=== PATIENT | male | born 1955 | race Caucasian/White ===

== ENCOUNTER 2023-11-17 17:29 | Emergency (ER) | payer OTHER, SELFPAY ==
--- NOTE | ~2023-11-17 | CT_ITS ---
EXAMINATION: CT HEAD WITHOUT CONTRAST CT FACIAL BONES WITHOUT CONTRAST CT CERVICAL SPINE WITHOUT CONTRAST CLINICAL INFORMATION: Fall. Head strike. Facial laceration. COMPARISON: None available. TECHNIQUE: Imaging was performed from the skull base to vertex without intravenous administration of contrast. In addition, helical noncontrast CT imaging was acquired through the cervical spine and facial bones and source images were reviewed along with axial reconstructions and sagittal and coronal MPRs. This CT examination was performed using dose optimization techniques as appropriate, variously including the following: *Automated exposure control. *Adjustment of mA and/or kV according to patient size (this includes techniques or standardized protocols for targeted exams where dose is matched to indication/reason for exam; i.e. extremities or head). *Use of iterative reconstruction technique. DLP: 1980 mGy-cm FINDINGS: Head: There is no evidence of acute intracranial hemorrhage or edematous territorial infarction. Koch-white matter differentiation is preserved. Scattered and partially confluent hypoattenuation in the periventricular and deep white matter are consistent with mild to moderate microangiopathy. Proportional prominence of the ventricles and sulcal spaces without evidence of obstructive hydrocephalus. No abnormal mass effect or midline shift. No extra-axial fluid collections. Calcific atherosclerotic disease of the intracranial internal carotid and vertebral arteries. No hyperdense vessel sign. Moderate laceration and soft tissue edema/hematoma along the lower aspect of the frontal bone extending along the nasal bridge. No associated acute osseous calvarial abnormalities. Bilateral lens extractions. Maxillofacial Bones: Mildly displaced bilateral nasal bone fractures. Mild leftward nasal septal deviation. Associated moderate edema/hematoma with soft tissue gas along the nasal bridge extending into the left premaxillary soft tissues. No demonstrated radiopaque foreign bodies. No evidence of additional maxillofacial bone fractures. The zygomatic arches remain intact. No evidence of mandibular or maxillary fracture. The mandibular condyles remain well-seated in their respective temporal articular grooves. Normal appearance of the intraconal and extraconal fat. No evidence of traumatic injury to the extraocular musculature or globes. Moderate mucosal edema throughout the nasal cavities and ethmoid air cells. Mild mucosal thickening throughout the remaining paranasal sinuses. No layering fluid collections. Cervical Spine: The atlantooccipital and atlantoaxial articulations remain well aligned. Straightening of the normal cervical lordosis. Otherwise, there is anatomic alignment of the vertebral bodies and posterior elements. Ankylosis of the left-sided C2-C3 facets. No evidence of acute fracture or subluxation. The vertebral body heights are maintained. Moderate degenerative disc disease at C3-C4. Mild degenerative disc disease at all additional levels. Facet and uncovertebral joint arthropathy leads to osseous encroachment on the neural foramina from C2-C5. There is no prevertebral soft tissue swelling. The thyroid gland and remaining cervical soft tissues are within normal limits. The lung apices demonstrate no abnormalities. CT/CT cervical spine wo IV con IMPRESSION: 1. No evidence of acute intracranial hemorrhage or edematous territorial infarction. Mild to moderate underlying microangiopathy and generalized cerebral volume loss. 2. No evidence of acute fracture or traumatic subluxation of the cervical spine. Moderate multilevel degenerative spondyloarthropathy of the cervical spine. 3. Mildly displaced bilateral nasal bone fractures. Moderate soft tissue edema/hematoma with soft tissue gas along the nasal bridge extending into the left premaxillary soft tissues. No demonstrated radiopaque foreign bodies.
[2023-11-17 17:40] VITALS: BP 117/69; PULSE 98; RESP 18; TEMP 37; O2SAT 95; BMI 32.4
--- NOTE | 2023-11-17 17:40 | ED_ITS ---
HPI - General Adult General Chief complaint: Head Injury Stated complaint: forehead laceration Time Seen by Provider: 11/17/23 18:06 Source: patient and family () Mode of arrival: ambulatory Limitations: no limitations History of Present Illness HPI narrative: Patient is a 68-year-old male presenting to the ED with complaint of forehead laceration and nasal pain/bleeding after a fall prior to arrival. He was sweeping up popcorn and lost his balance and fell forward into the handle of the oven. was home, denies loss of consciousness. He is not anticoagulated. Patient has 3-4cm linear laceration to forehead. He reports mild headache. Denies any changes is vision. States he feels as though he needs to blow his nose. Denies neck or back pain. complaint: head injury Onset (ago): hour(s) Location: face Severity: mild Quality: aching Pain Consistency: constant Relieving factors: rest Exacerbating factors: movement Associated symptoms: headaches Treatments prior to arrival: none Related Data Previous Rx's Medication Instructions Recorded amoxicillin 875 mg-potassium 1 tab PO BID #13 tabs 11/17/23 clavulanate 125 mg tablet Allergies Allergy/AdvReac Type Severity Reaction Status Date / Time No Known Allergies Allergy Verified 11/17/23 17:45 [No Known Allergies*] Review of Systems 2 Review of Systems: As per HPI. Yes all other systems are reviewed and are negative Constitutional: Constitutional: Reports as per HPI [facility] Social History Social History Advance Directives: No Advance Directives Information Provided: No Physical Exam ED Vital Signs: Vital Signs - 24 hr 11/17/23 17:40 Temperature 98.6 F Pulse Rate 98 Respiratory Rate 18 Blood Pressure 117/69 Pulse Oximetry 95 Oxygen Delivery Method Room Air BMI result Body Mass Index 32.4 Vital signs have been reviewed and appear to be correct. Blood pressure normal. Heart rate normal. Respiratory rate normal. Temperature normal. Oxygen saturation normal. Const General: cooperative, healthy appearing and no acute distress Orientation/consciousness: oriented to person, oriented to place, oriented to time and patient oriented x3 Limitations: no limitations HENMT Other: Head: Yes normocephalic Head images: 2 1. 5cm linear laceration Ears: external ears normal General nose exam: Normal septum present and Abnormal external nose present nasal deviation to the right and nasal swelling Face and sinus: Yes face symmetric Mouth: oropharynx normal and moist mucous membranes Throat: Yes uvula midline Eyes Periorbital: periorbital findings abnormal left periorbital ecchymosis (medially, see photo) Pupils: Equal, round and reactive pupils present EOM: EOMs intact bilaterally Neck Neck: Yes normal visual inspection, Yes no meningeal signs and Yes supple Resp Effort & Inspection: normal respiratory effort and able to speak in complete sentences Auscultation: clear to auscultation bilaterally Cardio Rate: regular rate Rhythm: regular rhythm Heart sounds: S1 normal heart sound present and S2 normal heart sound present GI Palpation (GI): Soft to palpation and nontender Auscultation: normoactive bowel sounds General: Yes no CVA tenderness Back/Spine/Pelvis Back: no CVA tenderness Skin General skin exam: elasticity normal and turgor normal Neuro General: oriented to person, oriented to place, oriented to time, patient oriented x3, gait normal, tone normal, moves all extremities, Normal light touch and pain sensation, no meningeal signs, no focal motor deficits, CN's II-XI intact bilaterally and deep tendon reflexes 2+ bilaterally Cranial nerves: Yes Equal, round and reactive pupils present Cognition (Neuro): normal cognition Gait exam (Neuro): Normal gait present Motor exam (neuro): 5/5 motor strength present throughout Sensory Exam: Normal double simultaneous stimulation for sensation Extrem General: Yes full ROM, Yes no pedal edema and Yes no calf tenderness Psych Mental Status: mental status grossly normal Affect: normal affect Thought process: Normal thought process present Course Course Course Narrative: This is a rapid medical exam: Additional HPI, ROS, PE not included below will be deferred to primary provider. Patient is a 68-year-old male presenting to the ED with complaint of forehead laceration and nasal pain/bleeding after a fall prior to arrival. He was sweeping up popcorn and lost his balance and fell forward into the handle of the oven. was home, denies loss of consciousness. He is not anticoagulated. Patient has 3-4cm linear laceration to forehead. Plan: CT head, neck, facial bones, Tdap Medications Administered Discontinued Medications Generic Name Dose Route Start Last Admin Trade Name Freq PRN Reason Stop Dose Admin Diphtheria/Tetanus/Acell Pertussis 0.5 ml 11/17/23 17:40 11/17/23 18:19 Diphth,Pertus(Acell),Tet Adult 0.5 Ml Syringe IM 11/17/23 17:41 0.5 ml .ONCE ONE Administration Lidocaine HCl 10 ml 11/17/23 18:31 11/17/23 19:44 Lidocaine Hcl 1 % Mpf 5 Ml Vial INFILTRATI 11/17/23 18:32 10 ml ONCE ONE Administration Procedures Laceration Laceration 1: Site: face Size (cm): 5 Description: linear Depth: involves muscle layer Local Anesthetic: lidocaine 1% Amount of anesthesia used (mL): 6 Pre-repair: wound explored, irrigated extensively and deep structures intact Skin layer closed with: other (prolene) Size (cm): 6-0 Number of sutures: 14 Technique: simple, interrupted Subcutaneous layer closed with: vicryl Size: 5-0 Number of sutures: 1 Medical Decision Making Medical Decision Making MDM Narrative: Patient is a 68-year-old male presenting to the ED with complaint of forehead laceration and nasal pain/bleeding after a fall prior to arrival. On exam patient is awake, A+Ox3, VS WNL, afebrile, normal neurological exam without focal deficits, physical exam findings as above. Given reported symptoms and physical exam findings, initial differential includes ICH, skull or cervical vertebral fracture or subluxation, facial bones fracture, open fracture, laceration. CT notable for no intracranial hemmorhage, skull or cervical vertebral fractures, mildly displaced bilateral nasal bone fractures with soft tissue edema along nasal bridge. My interpretation is in agreement with the radiologist's interpretation. Laceration repaired as per procedure note. Wound care instructions including daily assessment discussed with patient at bedside. Tdap updated at today's visit. Patient advised to return for suture removal in 5 days. Patient instructed to apply ice to his nose intermittently, Tylenol and ibuprofen for pain. Patient given explicit instructions not to blow his nose. Will refer patient to , ENT for further management of nasal bones fractures. Strict return precautions for all injuries discussed with patient and at bedside. Instructed patient to follow-up with his primary care provider as well. Patient and verbalized understanding of and agreement with plan. Differential Diagnosis Differential Diagnoses: The differential diagnosis associated with the presentation includes As per MDM. Admission/Observation Consideration of admission/observation: Escalation of care including admission/observation considered Patient would have been admitted to the hospital had their work up had any findings where hospital admission was appropriate and their clinical presentation warranted hospital admission. Independent Interpretation I performed an independent interpretation of an: CT Scan Interpretation: no intracranial hemmorhage, skull or cervical vertebral fractures, mildly displaced bilateral nasal bone fractures with soft tissue edema along nasal bridge Radiology Impression Discussion of test interpretation with radiology: I have reviewed the radiologist's reading. Radiologist Impression: CT/CT head/brain wo IV con IMPRESSION: 1. No evidence of acute intracranial hemorrhage or edematous territorial infarction. Mild to moderate underlying microangiopathy and generalized cerebral volume loss. 2. No evidence of acute fracture or traumatic subluxation of the cervical spine. Moderate multilevel degenerative spondyloarthropathy of the cervical spine. 3. Mildly displaced bilateral nasal bone fractures. Moderate soft tissue edema/hematoma with soft tissue gas along the nasal bridge extending into the left premaxillary soft tissues. No demonstrated radiopaque foreign bodies. Independent Historian Clinical information obtained from an independent historian. History obtained from or confirmed by: Spouse External Record Review External record reviewed: Inpatient record, Office record and Outpatient record Prescription Management I considered prescription management with: Antibiotic Discharge Plan Discharge Clinical Impression: Fracture of nasal bones, Forehead laceration Patient Disposition: Home, Self-Care Instructions: Care For Your Stitches (DC), Nasal Fracture (ED), Laceration (DC), Care For Your Absorbable Stitches (ED), Stitches Removal (ED) Additional Instructions: You were evaluated in the emergency department today for facial injuries after a fall. The CT scan of your facial bones shows bilateral nasal fractures. IT IS VERY IMPORTANT THAT YOU DO NOT BLOW YOUR NOSE. You are being referred to Dr. Hung, ENT for further management of your nasal fractures. Please call his office to schedule an appointment. You should apply ice to your nose for 10-15 minutes at a time several times daily. You are being treated with a course of antibiotics because your nasal fracture involves lacerations to prevent infection. Please complete the full course as prescribed. If you develop a nosebleed that you are not able to control, you should return to the emergency department. The CT scan of your brain and cervical spine did not show evidence bleeding in your brain or fractures. Your laceration was repaired in the emergency department with sutures. You will need to have the sutures removed in 5 days. Please keep the dressing in place for the next 24 hours. After that, you can change the dressing daily and be sure to assess the laceration each time. If you notice increased redness, swelling, thick yellow drainage please return to the emergency department. We recommend you take 600 mg ibuprofen every 6 hours or Tylenol 650 mg every 6 hours as needed for pain. If needed, you can alternate these medications so that you take 1 medication every 3 hours. For instance, at noon take ibuprofen, then at 3:00 p.m. take Tylenol, then at 6:00 p.m. take ibuprofen. Please schedule an appointment with for follow-up with your primary care provider as soon as possible. Return to the emergency department if you experience worsening or uncontrolled pain, vision changes, recurrent vomiting, difficulty with normal activities, abnormal behavior, difficulty walking, numbness, weakness, or any other concerning symptoms. Prescriptions: New amoxicillin-pot clavulanate 875-125 mg tablet 1 tab PO BID Qty: 13 0RF Rx Instructions: You were given the 1st dose of this medication in the emergency department. Please take the next dose in the morning, 11/18/2023. Referrals: Braden Hung [Physician] -
[2023-11-17] MEDS: Diphth,Pertus(ACell),Tet Adult 0.5 ML SYRINGE IM (18:19)
[2023-11-17] MEDS: Lidocaine HCl 1 % MPF 5 ML VIAL 10 ML INFILTRATI (19:44)
[2023-11-17] MEDS: Bacitracin Oint 0.9 GM PACKET 1 APPL TOPICAL (20:33)
[2023-11-17 20:40] VITALS: BP 119/72; PULSE 86; RESP 20; TEMP 36.6; O2SAT 97
[2023-11-17] MEDS: Amoxicillin/Potassium Clav 875 MG TABLET PO (20:54)
[2023-11-17] MEDS: Acetaminophen 325 MG TABLET 975 MG PO (20:56)
[2023-11-17 20:57] VITALS: BP 119/72; PULSE 84; RESP 18; TEMP 36.7
== END 2023-11-17 20:59 | disposition home or self-care (01) ==
PROVIDERS: Emergency Provider Internal Medicine; PCP Internal Medicine
DX: S01.81XA Laceration without foreign body of other part of head, initial encounter (principal); S02.2XXA Fracture of nasal bones, initial encounter for closed fracture; W19.XXXA Unspecified fall, initial encounter; Y93.89 Activity, other specified; Y92.89 Other specified places as the place of occurrence of the external cause; Y99.9 Unspecified external cause status; Z23 Encounter for immunization
CPT/HCPCS: 12002; 70450; 70486; 72125; 90471; 90715; 99283; 99284

== ENCOUNTER 2023-11-23 07:23 | Emergency (ER) | payer MEDICARE, SELFPAY ==
[2023-11-23 07:31] VITALS: BP 143/93; PULSE 94; RESP 16; TEMP 36.4; O2SAT 95; BMI 31.8
--- NOTE | 2023-11-23 07:35 | ED_ITS ---
HPI - General Adult General Chief complaint: General Medical Stated complaint: Suture Removal Time Seen by Provider: 11/23/23 07:35 Source: patient Mode of arrival: ambulatory Limitations: no limitations History of Present Illness HPI narrative: No presents to the ER for evaluation of his forehead laceration that required multiple sutures on 11/16 after he fell. He had nasal bone fractures as well and has ENT follow up today. He reports improving pain and bruising. No nasal congestion or bleeding. No discharge from lac and no complaints. MD complaint: laceration evaluation and suture removal Location: face Radiation: non-radiation Severity: mild Pain Consistency: now resolved Relieving factors: none Exacerbating factors: none Associated symptoms: denies other symptoms Treatments prior to arrival: none Related Data Previous Rx's Medication Instructions Recorded amoxicillin 875 mg-potassium 1 tab PO BID #13 tabs 11/17/23 clavulanate 125 mg tablet Allergies Allergy/AdvReac Type Severity Reaction Status Date / Time No Known Allergies Allergy Verified 11/23/23 07:30 [No Known Allergies*] Review of Systems Review of Systems: Yes all other systems are reviewed and are negative [facility] Social History Social History Advance Directives: Yes Advance Directives Information Provided: Yes Advance Directives on File: No Physical Exam ED Vital Signs: Vital Signs - 24 hr 11/23/23 07:31 Temperature 97.6 F Pulse Rate 94 Respiratory Rate 16 Blood Pressure 143/93 H Pulse Oximetry 95 Oxygen Delivery Method Room Air BMI result Body Mass Index 31.8 Appearance: Alert. Oriented X3. No acute distress. HEENT: linear 6cm well healing laceration at the bottom of the forehead just above the eyebrows with multiple sutures in place, some mild scabbing. no drainage, erythema or warmth. ecchymosis under bilateral eyes appears old. no nasal swelling or drainage. CVS: Normal heart rate and rhythm. Pulses normal. Respiratory: No respiratory distress. Skin: Skin warm and dry. Normal skin color. Normal skin turgor. No rashes. Extremities: normal inspection x4 Neuro: Oriented X 3. No motor deficit. No sensory deficit. steady gait Medical Decision Making Medical Decision Making MDM Narrative: 68 yo male presenting for suture removal, wound evaluation. appropriately healing sutures removed successfully and 3 steri strips applied for additional healing wound care discussed he has ENT appointment today stable for d/c home Differential Diagnosis Differential Diagnoses: The differential diagnosis associated with the presentation includes delayed wound healing, appropriate wound healing, wound complication, open fracture External Record Review External record reviewed: Outpatient record and Prior outpatient labs Prescription Management I considered prescription management with: Antibiotic Discharge Plan Discharge Clinical Impression: Forehead laceration Qualifiers: Encounter type: subsequent encounter Qualified Code(s): S01.81XD - Laceration without foreign body of other part of head, subsequent encounter Patient Disposition: Home, Self-Care Instructions: Stitches Removal (ED) Additional Instructions: keep the steri strips in place until they fall off on their own recommend over the counter Mederma to help with scarring follow up with ENT and your doctor If you develop new or worsening symptoms call 911 or come back to the ER for further evaluation. Prescriptions: No Action amoxicillin-pot clavulanate 875-125 mg tablet 1 tab PO BID Qty: 13 0RF Rx Instructions: You were given the 1st dose of this medication in the emergency department. Please take the next dose in the morning, 11/18/2023.
[2023-11-23 08:12] VITALS: BP 143/93; PULSE 94; RESP 16; TEMP 36.4; O2SAT 95
== END 2023-11-23 08:50 | disposition home or self-care (01) ==
PROVIDERS: Emergency Provider Emergency Medicine; PCP Internal Medicine
DX: S01.81XD Laceration without foreign body of other part of head, subsequent encounter (principal); X58.XXXD Exposure to other specified factors, subsequent encounter
CPT/HCPCS: 99282

== ENCOUNTER 2024-08-28 01:25 | Inpatient (IN) | payer MEDICARE, SELFPAY ==
[2024-08-28] VITALS (7 sets, daily range): BP systolic 115–136; BP diastolic 71–86; PULSE 73–101; RESP 12–19; TEMP 36.4–36.7; O2SAT 91–97; BMI 30.7; BMI 32.6; BMI 33.5
--- NOTE | 2024-08-28 | ECG_ITS ---
Test Reason : REPEAT Blood Pressure : / mmHG Vent. Rate : 095 BPM Atrial Rate : 095 BPM P-R Int : 154 ms QRS Dur : 134 ms QT Int : 388 ms P-R-T Axes : 044 042 -02 degrees QTc Int : 487 ms Normal sinus rhythm Right bundle branch block Abnormal ECG When compared with ECG of 28-AUG-2024 01:34, Premature ventricular complexes are no longer Present Referred By: Duncan Montana Electronically Signed By:Lang Ryder
--- NOTE | 2024-08-28 01:32 | ECG_ITS ---
Test Reason : CHEST PAIN Blood Pressure : / mmHG Vent. Rate : 099 BPM Atrial Rate : 099 BPM P-R Int : 150 ms QRS Dur : 136 ms QT Int : 368 ms P-R-T Axes : 031 035 -07 degrees QTc Int : 472 ms Sinus rhythm with occasional Premature ventricular complexes Right bundle branch block Abnormal ECG When compared with ECG of 24-MAR-2013 18:49, No significant change was found Referred By: Generic ED Physician Electronically Signed By:Lang Ryder
[2024-08-28 02:27] LABS: Basophils Absolute Auto 0.1 X10*3/uL (0.0-0.2); Eosinophils Absolute Auto 0.3 X10*3/uL (0.0-0.4); Eosinophils Percent Auto 3.8 % (0-4); Hematocrit 39.4 % (42.0-52.0); Hemoglobin 13.5 g/dl (14.0-18.0); Imm Gran Abs Auto 0.01 X10*3/uL (0.00-0.03); Imm Gran Pct Auto 0.1 % (0.0-0.4); Lymphocytes Absolute Auto 2.1 X10*3/uL (1.2-4.9); Lymphocytes Percent Auto 29.1 % (20-40); MANUAL DIFF FLAG NO; Mean Corpuscular HGB Conc 34.3 g/dl (31.0-36.0); Mean Corpuscular Hemoglobin 31.9 pg (27.0-33.0); Mean Corpuscular Volume 93.1 fL (80.0-98.0); Mean Platelet Volume 8.2 fL (9.4-12.4); Monocytes Absolute Auto 0.9 X10*3/uL (0.1-1.2); Monocytes Percent Auto 11.9 % (2-11); Neutrophils Percent Auto 54.1 % (45-73); Platelet Count 240 X10*3/uL (160-400); Red Blood Count 4.23 X10*6/uL (4.60-5.80); Red Cell Distribution Width 12.3 % (11.0-16.0); White Blood Count 7.3 X10*3/uL (4.8-10.8)
--- NOTE | 2024-08-28 02:43 | ED_ITS ---
HPI - Chest Pain General Chief Complaint: Chest Pain Stated Complaint: CHEST PAIN!!! Time Seen by Provider: 08/28/24 02:43 Source: patient Mode of arrival: ambulatory Limitations: no limitations History of Present Illness ED Provider: HPI narrative: Patient' with history of hypertension hypercholesterolemia no known coronary artery disease does not take any aspirin noticed sudden onset of pain while going to the bed pain was localized in lower sternum area heaviness constricting feeling with cold sweats nausea vomited once no shortness a breath was diaphoretic pain lasted until he arrived to the ER slight discomfort at this time patient has had remote stress test in the past which was negative Related Data Previous Rx's ?Medication ?Instructions ?Recorded amoxicillin 875 mg-potassium 1 tab PO BID #13 tabs 11/17/23 clavulanate 125 mg tablet Allergies Allergy/AdvReac Type Severity Reaction Status Date / Time No Known Allergies Allergy Verified 08/28/24 01:31 [No Known Allergies*] Review of Systems 2 Review of Systems: Yes all other systems are reviewed and are negative PMFSH Past Medical History Medical History (Updated 08/28/24 @ 06:34 by Duncan Montana MD) GERD (gastroesophageal reflux disease) Hyperlipidemia Hypertension Social History Social History Alcohol intake: current Alcohol intake frequency: a few times a week Patient Tobacco Use Status: Never used Tobacco Smoked in Last 30 Days: No Use of substances other than those prescribed or required for medical reasons: No Advance Directives: No Advance Directives Information Provided: Yes Do you have a plan to hurt others: No Plan Nutrition Risks: No Nutritional Risk Physical Exam 2 Vital Signs: Vital Signs: Last Vital Signs Temp 97.9 F 08/28/24 06:04 Pulse 89 08/28/24 06:04 Resp 19 08/28/24 06:04 BP 121/78 08/28/24 06:04 Pulse Ox 94 08/28/24 06:04 O2 Del Method Room Air 08/28/24 06:04 BMI result Body Mass Index 32.6 Appearance: Alert. Oriented X3. No acute distress. Eyes: No pallor or icterus ENT: Pharynx normal. Oral Mucosa moist Neck: Normal inspection. Neck supple. CVS: Normal heart rate and rhythm. Pulses normal. No murmur rub or gallop Respiratory: No respiratory distress. Equal air entry bilateral, no wheezing/rales/rhonchi Abdomen: Soft and nontender. Bowel sounds are present, no mass palpable, no CVA tenderness Skin: Skin warm and dry. Normal skin color. Normal skin turgor. Extremities: No lower extremity edema. No calf tenderness Neuro: Oriented X 3. No motor deficit. No sensory deficit.No cerebellar signs , cranial nerves II-XII intact Medications Administered Generic Name Dose Route Start Last Admin Trade Name Freq PRN Reason Stop Dose Admin Heparin Sodium/Sodium Chloride 25,000 unit in 250 mls @ 0 mls/hr 08/28/24 05:15 08/28/24 05:40 Heparin Sodium,Porcine/1/2ns IVCONT 10.02 units/kg/hr .Q0M SPEEDY 10 mls/hr Administration Protocol Per Protocol Discontinued Medications Generic Name Dose Route Start Last Admin Trade Name Freq PRN Reason Stop Dose Admin Aspirin 162 mg 08/28/24 02:48 08/28/24 02:58 Aspirin Enteric Coated 81 Mg Tablet.Dr ROCHE 08/28/24 02:49 162 mg ONCE ONE Administration Atorvastatin Calcium 80 mg 08/28/24 05:51 08/28/24 06:23 Atorvastatin Calcium 80 Mg Tablet PO 08/28/24 05:52 80 mg ONCE ONE Administration Heparin Sodium (Porcine) 5,000 unit 08/28/24 03:00 08/28/24 03:04 Heparin Sodium,Porcine 5,000 Unit/Ml Vial IVPUSH 08/28/24 03:01 5,000 unit ONCE ONE Administration Metoprolol Tartrate 25 mg 08/28/24 06:15 08/28/24 06:23 Metoprolol Tartrate 25 Mg Tablet PO 08/28/24 06:16 25 mg ONCE@0615 ONE Administration Nitroglycerin 0.5 inch 08/28/24 02:48 08/28/24 02:58 Nitroglycerin 2 % Oint 1 Gm Packet TRANSDERMA 08/28/24 02:49 0.5 inch ONCE ONE Administration Medical Decision Making Medical Decision Making [facility] Narrative: Patient with left-sided chest pain clinically cardiac with delta increase in troponin no acute EKG changes of acute ischemia patient is chest pain-free after arrival 2nd EKG also did not show any acute ischemic changes. Case discussed Dr. Cameron burciaga vehicle technician advised to heparinize the patient evaluate later and possible cardiac catheterization later today patient was given aspirin and nitro paste was applied on arrival Differential Diagnosis Differential Diagnoses: The differential diagnosis associated with the presentation includes Admission/Observation Consideration of admission/observation: Escalation of care including admission/observation considered Consult Healthcare Provider Management of the patient was discussed with: Hospitalist and Hospice Director Lab Data MDM Lab Attestation statement: I reviewed the patient's lab results. 08/28/24 02:17 08/28/24 02:17 Labs: Lab Results 08/28/24 08/28/24 08/28/24 Range/Units 02:17 02:22 02:57 WBC 7.3 (4.8-10.8) X10*3/uL RBC 4.23 L (4.60-5.80) X10*6/uL Hgb 13.5 L (14.0-18.0) g/dl Hct 39.4 L (42.0-52.0) % MCV 93.1 (80.0-98.0) fL MCH 31.9 (27.0-33.0) pg MCHC 34.3 (31.0-36.0) g/dl RDW 12.3 (11.0-16.0) % Plt Count 240 (160-400) X10*3/uL MPV 8.2 L (9.4-12.4) fL Immature Gran % (Auto) 0.1 (0.0-0.4) % Neut % (Auto) 54.1 (45-73) % Lymph % (Auto) 29.1 (20-40) % Rusk % (Auto) 11.9 H (2-11) % Eos % (Auto) 3.8 (0-4) % Baso % (Auto) 1.0 (0-2) % Lymph # (Auto) 2.1 (1.2-4.9) X10*3/uL Rusk # (Auto) 0.9 (0.1-1.2) X10*3/uL Eos # (Auto) 0.3 (0.0-0.4) X10*3/uL Baso # (Auto) 0.1 (0.0-0.2) X10*3/uL Abs Immat Gran (auto) 0.01 (0.00-0.03) X10*3/uL Absolute Neuts (auto) 4.0 (2.0-8.3) x10*3/uL Absolute Nucleated RBC 0.000 (0.0-0.012) X10*3/uL Nucleated RBC % (auto) 0.0 (0.0-0.2) /100WBC PT 10.7 L (10.9-12.4) SEC INR 0.9 (0.9-1.1) APTT 31.6 (26.0-36.8) SEC Sodium 139 (135-145) mmol/L Potassium 3.6 (3.3-5.1) mmol/L Chloride 104 (96-108) mmol/L Carbon Dioxide 27 (22-29) mmol/L Anion Gap 12 (12-20) BUN 20 H (9-16) mg/dL Creatinine 0.84 (0.5-1.4) mg/dL Estim Creat Clear Calc 97.0 Estimated GFR > 60 Random Glucose 116 H (60-115) mg/dL Calcium 9.2 (8.4-10.2) mg/dL Magnesium 1.9 (1.6-2.6) mg/dL Total Bilirubin 0.3 (0.0-1.0) mg/dL AST 25 (5-37) U/L ALT 19 (0-40) U/L Alkaline Phosphatase 71 (39-117) U/L Troponin I High Sens 6.3 (<3.5-35.0) ng/L Total Protein 6.7 (6.5-8.0) g/dL Albumin 4.0 (3.5-5.0) g/dL Influenza Type A (PCR) NEGATIVE (Negative) Influenza Type B (PCR) NEGATIVE (Negative) RSV RNA Qual (PCR) NEGATIVE (Negative) SARS-CoV-2 RNA (RT-PCR) NEGATIVE (Negative) 08/28/24 Range/Units 04:22 WBC (4.8-10.8) X10*3/uL RBC (4.60-5.80) X10*6/uL Hgb (14.0-18.0) g/dl Hct (42.0-52.0) % MCV (80.0-98.0) fL MCH (27.0-33.0) pg MCHC (31.0-36.0) g/dl RDW (11.0-16.0) % Plt Count (160-400) X10*3/uL MPV (9.4-12.4) fL Immature Gran % (Auto) (0.0-0.4) % Neut % (Auto) (45-73) % Lymph % (Auto) (20-40) % Rusk % (Auto) (2-11) % Eos % (Auto) (0-4) % Baso % (Auto) (0-2) % Lymph # (Auto) (1.2-4.9) X10*3/uL Rusk # (Auto) (0.1-1.2) X10*3/uL Eos # (Auto) (0.0-0.4) X10*3/uL Baso # (Auto) (0.0-0.2) X10*3/uL Abs Immat Gran (auto) (0.00-0.03) X10*3/uL Absolute Neuts (auto) (2.0-8.3) x10*3/uL Absolute Nucleated RBC (0.0-0.012) X10*3/uL Nucleated RBC % (auto) (0.0-0.2) /100WBC PT (10.9-12.4) SEC INR (0.9-1.1) APTT (26.0-36.8) SEC Sodium (135-145) mmol/L Potassium (3.3-5.1) mmol/L Chloride (96-108) mmol/L Carbon Dioxide (22-29) mmol/L Anion Gap (12-20) BUN (9-16) mg/dL Creatinine (0.5-1.4) mg/dL Estim Creat Clear Calc Estimated GFR Random Glucose (60-115) mg/dL Calcium (8.4-10.2) mg/dL Magnesium (1.6-2.6) mg/dL Total Bilirubin (0.0-1.0) mg/dL AST (5-37) U/L ALT (0-40) U/L Alkaline Phosphatase (39-117) U/L Troponin I High Sens 108.1 H* D (<3.5-35.0) ng/L Total Protein (6.5-8.0) g/dL Albumin (3.5-5.0) g/dL Influenza Type A (PCR) (Negative) Influenza Type B (PCR) (Negative) RSV RNA Qual (PCR) (Negative) SARS-CoV-2 RNA (RT-PCR) (Negative) Independent Interpretation I performed an independent interpretation of an: EKG Interpretation: Sinus tachycardia heart rate 111 beats per minute poor progression of R-waves in anterior leads? ST elevation lead V2 and V3 baseline disturbances will repeat the EKG Discharge Plan Discharge Clinical Impression: NSTEMI (non-ST elevated myocardial infarction) Patient Disposition: Admitted As Inpatient
[2024-08-28 02:44] LABS: Alanine Aminotransferase 19 U/L (0-40); Alkaline Phosphatase 71 U/L (39-117); Anion Gap 12 (12-20); Aspartate Amino Transferase 25 U/L (5-37); Bilirubin Total 0.3 mg/dL (0.0-1.0); Blood Urea Nitrogen 20 mg/dL (9-16); Calcium 9.2 mg/dL (8.4-10.2); Carbon Dioxide 27 mmol/L (22-29); Chloride 104 mmol/L (96-108); Estimated Glomerular Filt Rate > 60; Glucose Random 116 mg/dL (60-115); Magnesium 1.9 mg/dL (1.6-2.6); Potassium 3.6 mmol/L (3.3-5.1); Sodium 139 mmol/L (135-145); Total Protein 6.7 g/dL (6.5-8.0)
[2024-08-28 02:47] LABS: Troponin-I High Sensitivity 6.3 ng/L (<3.5-35.0)
[2024-08-28] MEDS: Aspirin Enteric Coated 81 MG TABLET.DR 162 MG PO (02:58)
[2024-08-28] MEDS: Nitroglycerin 2 % Oint 1 GM Packet 0.5 INCH TRANSDERMA (02:58)
[2024-08-28 03:03] LABS: Influenza A PCR NEGATIVE (Negative); Influenza B PCR NEGATIVE (Negative); Resp Syncy Virus RNA Qual PCR NEGATIVE (Negative); SARS COV2 PCR INHOUSE NEGATIVE (Negative)
--- NOTE | 2024-08-28 03:03 | MHC.EDTECH ---
EKG taken per order and signed by provider
[2024-08-28] MEDS: Heparin Sodium,Porcine 5,000 UNIT/ML VIAL 5000 UNIT IVPUSH (03:04)
[2024-08-28 03:10] LABS: INTERNATIONAL NORM RATIO 0.9 (0.9-1.1); Prothrombin Time 10.7 SEC (10.9-12.4)
[2024-08-28 03:13] LABS: Partial Thromboplastin Time 31.6 SEC (26.0-36.8)
--- NOTE | 2024-08-28 04:24 | MHC.EDTECH ---
Repeat trop drawn and sent to lab
[2024-08-28 04:48] LABS: Troponin-I High Sensitivity 108.1 ng/L (<3.5-35.0)
--- NOTE | 2024-08-28 04:55 | ECG_ITS ---
Test Reason : CHEST PX Blood Pressure : / mmHG Vent. Rate : 089 BPM Atrial Rate : 089 BPM P-R Int : 150 ms QRS Dur : 134 ms QT Int : 392 ms P-R-T Axes : 050 045 -10 degrees QTc Int : 476 ms Normal sinus rhythm Right bundle branch block Abnormal ECG When compared with ECG of 28-AUG-2024 02:50, No significant change was found Referred By: Duncan Montana Electronically Signed By:Lang Ryder
--- NOTE | 2024-08-28 05:03 | PC.NURSE ---
troponin elevated, 108.1. 3rd EKG done at this time. pt denies chest pain or SOB
--- NOTE | 2024-08-28 05:29 | PM.IMHP ---
History of Present Illness Date of Service: 08/28/24 Chief Complaint: chest pain This is a 69-year-old male with a history of hypertension (HTN), hyperlipidemia (HLD), and gastroesophageal reflux disease (GERD) who presented with non-radiating, constant chest pain rated 4/10 since 0, associated with nausea and vomiting. His symptoms were unresponsive to antacids (Tums), prompting his to bring him to the ED around 2 AM. Initial workup revealed an ECG with RBBB but no ischemic changes, and a first troponin level of 108, consistent with myocardial injury. ED management included aspirin (ASA) and nitroglycerin, with cardiology recommending IV heparin. He is currently chest-pain free and hemodynamically stable. Review of Systems Review of Systems: Gen: no fever Resp: no sob, no cough CV: no chest, no UMANZOR, no leg edema GI: No n/v, no abd pain Neuro: No confusion Yes all other systems are reviewed and are negative [facility] Medical History GERD (gastroesophageal reflux disease) Hyperlipidemia Hypertension Social History Household Members: Spouse Housing: House Do you presently have visiting nurse or other home services: No Alcohol intake: current Alcohol intake frequency: a few times a week Patient Tobacco Use Status: Former Tobacco user Smoked in Last 30 Days: No Use of substances other than those prescribed or required for medical reasons: No Advance Directives: No Advance Directives Information Provided: Yes Do you have a plan to hurt others: No Plan Recently lost weight without trying: No Nutrition Risks: No Nutritional Risk Poor oral hygiene: No Meds Allergies Allergy/AdvReac Type Severity Reaction Status Date / Time No Known Allergies Allergy Verified 08/28/24 01:31 [No Known Allergies*] Active Medications: Current Medications Heparin Sodium (Porcine) (Heparin Sodium,Porcine 5,000 Unit/Ml Vial) 4,000 unit 40 unit/kg (4000 unit) IVPUSH PROTOCOL BOLUS PRN; Protocol PRN Reason: 40 unit/kg - Heparin Protocol Heparin Sodium (Porcine) (Heparin Sodium,Porcine 5,000 Unit/Ml Vial) 8,000 unit 80 unit/kg (8000 unit) IVPUSH PROTOCOL BOLUS PRN; Protocol PRN Reason: 80 unit/kg - Heparin Protocol Heparin Sodium/Sodium Chloride (Heparin Sodium,Porcine/1/2ns) 25,000 unit in 250 mls @ 0 mls/hr IVCONT .Q0M SPEEDY; Protocol Home Medications ?Medication ?Instructions ?Recorded ?Confirmed ?Last Taken ?Type acetaminophen 500 mg tablet 1,000 mg PO Q8H PRN Pain 08/28/24 08/28/24 Unknown History cyanocobalamin (vitamin B-12) 1,000 mcg PO DAILY 08/28/24 08/28/24 08/27/24 History 1,000 mcg tablet esomeprazole magnesium 40 mg 40 mg PO DAILY 08/28/24 08/28/24 08/27/24 History capsule,delayed release hydrochlorothiazide 25 mg tablet 25 mg PO DAILY 08/28/24 08/28/24 08/27/24 History lisinopril 20 mg tablet 20 mg PO DAILY 08/28/24 08/28/24 08/27/24 History pravastatin 80 mg tablet 80 mg PO DAILY 08/28/24 08/28/24 08/27/24 History tadalafil 20 mg tablet 20 mg PO DAILY PRN Erectile 08/28/24 08/28/24 Unknown History Dysfunction Physical Exam Vital Signs and Narrative: Vital Signs: Last Vital Signs Temp 97.6 F 08/28/24 01:28 Pulse 87 08/28/24 04:17 Resp 13 08/28/24 04:17 BP 131/72 08/28/24 04:17 Pulse Ox 91 L 08/28/24 04:17 O2 Del Method Room Air 08/28/24 04:17 BMI result Body Mass Index 32.6 Const: Other: General: AO X 3, no acute distress Resp: CTA bilateral CVS: S1,S2,RRR GI: +BS, NT, no distention Skin: No rash Neuro: motor grossly intact Psych: appropriate affect Results Labs 08/28/24 02:17 08/28/24 07:05 Labs: Laboratory Results - last 24 hr 08/28/24 08/28/24 08/28/24 02:17 02:22 02:57 MCV 93.1 MCH 31.9 MCHC 34.3 RDW 12.3 Plt Count 240 MPV 8.2 L Immature Gran % (Auto) 0.1 Neut % (Auto) 54.1 Lymph % (Auto) 29.1 [place] % (Auto) 11.9 H Eos % (Auto) 3.8 Baso % (Auto) 1.0 Lymph # (Auto) 2.1 [place] # (Auto) 0.9 Eos # (Auto) 0.3 Baso # (Auto) 0.1 Abs Immat Gran (auto) 0.01 Absolute Neuts (auto) 4.0 Absolute Nucleated RBC 0.000 Nucleated RBC % (auto) 0.0 PT 10.7 L INR 0.9 APTT 31.6 Anion Gap 12 Estim Creat Clear Calc 97.0 Estimated GFR > 60 Random Glucose 116 H Calcium 9.2 Magnesium 1.9 Total Bilirubin 0.3 AST 25 ALT 19 Alkaline Phosphatase 71 Troponin I High Sens 6.3 Total Protein 6.7 Albumin 4.0 Influenza Type A (PCR) NEGATIVE Influenza Type B (PCR) NEGATIVE RSV RNA Qual (PCR) NEGATIVE SARS-CoV-2 RNA (RT-PCR) NEGATIVE 08/28/24 04:22 MCV MCH MCHC RDW Plt Count MPV Immature Gran % (Auto) Neut % (Auto) Lymph % (Auto) [place] % (Auto) Eos % (Auto) Baso % (Auto) Lymph # (Auto) [place] # (Auto) Eos # (Auto) Baso # (Auto) Abs Immat Gran (auto) Absolute Neuts (auto) Absolute Nucleated RBC Nucleated RBC % (auto) PT INR APTT Anion Gap Estim Creat Clear Calc Estimated GFR Random Glucose Calcium Magnesium Total Bilirubin AST ALT Alkaline Phosphatase Troponin I High Sens 108.1 H* D Total Protein Albumin Influenza Type A (PCR) Influenza Type B (PCR) RSV RNA Qual (PCR) SARS-CoV-2 RNA (RT-PCR) Assessment and Plan (1) NSTEMI (non-ST elevated myocardial infarction): Status: Acute Plan 69 year old male with HTN, HLD here with NSTEMI NSTEMI Initiate IV heparin drip per cardiology recommendation to reduce the risk of thrombus progression. Antiplatelet Therapy with ASA Continue nitroglycerin PRN for chest pain Start atorvastatin 80 mg stat metoprolol 25 mg bid Cardiology Consultation, he may need cardiac cath for possible revascularization. serial troponin and repeat ECG Ongoing tele monitoring Get echocardiogram HTN, resume home med per med rec HLD-Lipitor as above GERD-PPI DVT prophylaxis: heparin Full code admission for NSTEMI management including IV heparin Quality Stroke Does the patient have a stroke diagnosis?: No VTE Prior VTE?: No VTE Risk Level:: Medical - moderate - high VTE Device Contraindication: Treatment Not Indicated VTE Drug Contraindication: N/A - Med Ordered
--- NOTE | 2024-08-28 05:34 | PC.NURSE ---
pt weight updated on standing scale, 105.9kg. pharmacy called and updated for heparin drip
[2024-08-28] MEDS: Heparin Sodium,Porcine/1/2NS 25,000 UNIT/250 ML IV.SOLN 10 UNIT IVCONT (05:40)
--- NOTE | 2024-08-28 05:45 | PC.NURSE ---
heparin drip started
--- NOTE | 2024-08-28 05:51 | PC.NURSE ---
pump is set correctly to rate of 10 mls/hr and correct weight of 105.9kg
--- NOTE | 2024-08-28 06:09 | MHC.EDTECH ---
Rounds and vitals and belongings list completed,copy placed in chart
--- NOTE | 2024-08-28 06:21 | PC.NURSE ---
O2 dropped to 88% while resting with eyes closed and snoring. back up tp 95% when woken up. no official dx of sleep apnea
[2024-08-28] MEDS: Metoprolol Tartrate 25 MG TABLET PO (06:23)
[2024-08-28] MEDS: Atorvastatin Calcium 80 MG TABLET PO (06:23)
--- NOTE | 2024-08-28 07:00 | CA_ITS ---
Transthoracic Echocardiogram Patient (Last, First, Middle): Emory Vega K Gender: Male Date of : 1955 Age: 69 Procedure Date: 08/28/2024 Procedure Type: Transthoracic Echocardiogram Location: [facility] [place] Height: 180.34 cm Weight: 105.69 kg BSA: 2.25 m2 Heart Rate: 80 bpm BP: 121 / 78 mmHg Seed Trucker: SB Referring MD: Mane Antunez MD Symptoms: NSTEMI Study Quality: Adequate w contrast ECG Rhythm: Sinus Conclusions: - Normal left ventricular cavity size. The left ventricular systolic function is hyperdynamic. The visually estimated ejection fraction is >70%. There is no evidence of regional wall motion abnormalities. - Severe asymmetric septal hypertrophy (1.84 cm). - Mildly increased right ventricular cavity size. There is normal right ventricular systolic function. Findings Procedure Information Contrast agent, definity, is being given per protocol without apparent complications. The quality of the study was technically difficult. The study quality is limited by patients body habitus. Left Ventricle Normal left ventricular cavity size. The left ventricular systolic function is hyperdynamic. The visually estimated ejection fraction is >70%. There is no evidence of regional wall motion abnormalities. Abnormal diastolic function is noted. Spectral Doppler is indicative of a pseudonormal filling pattern. E/E prime ratio is between 8 and 15 consistent with indeterminate filling pressures. Severe asymmetric septal hypertrophy (1.84 cm). Right Ventricle Mildly increased right ventricular cavity size. There is normal right ventricular systolic function. Atria The left atrium is normal in size. The right atrium is likely dilated. Aortic Valve Normal aortic valve structure and function. There is no aortic valve stenosis. There is no aortic valve regurgitation. Mitral Valve The mitral valve appears normal. There is no mitral valve regurgitation. There is no mitral valve stenosis. Pulmonic Valve The pulmonic valve is normal. There is trace pulmonic valve regurgitation. Tricuspid Valve Normal tricuspid valve structure. There is trace tricuspid valve regurgitation. Normal right atrial pressure. There is no evidence of pulmonary hypertension. Great Vessels All visible segments of the aorta are normal in size. The visualized portions of the pulmonary artery and branches are normal. Venous The inferior vena cava is normal in size and collapses greater than 50% with inspiration. Pericardium/Pleural There is no evidence of pericardial effusion. Prior Study Comparison No prior study available for comparison. Measurements 2D Linear Measurements IVSd: 1.46 0.6-0.9/0.6-1.0 cm LVIDd: 4.17 3.9-5.3/4.2-5.9 cm LVIDd Index: 1.85 2.4-3.2/2.2-3.1 cm/m2 LVIDs: 2.38 2.0-3.6 cm LVPWd: 0.79 0.7-1.1 cm LA Diam: 3.50 2.7-3.8/3.0-4.0 cm LAIDs Index: 1.56 1.5-2.3 cm/m2 LV Mass: 200.30 67-162/88-224 g LV Mass Index: 89.02 43-95/49-115 g/m2 LVOT Diam: 2.40 3.0+(-)1.3 cm 2D Systolic Function EF 4C: 59.40 >55% EF 2C: 61.80 >55% EF BiP: 60.70 >55% Mitral Valve MV Pk E: 0.78 MV PK A: 0.72 MV Decel Time: 168.00 E/A: 1.10 E'Lateral: 6.31 E'Medial: 5.87 E/E' Med: 13.20 E/E' Lat: 12.30 PHT: 49.00 MVA PHT: 4.49 Decel [place]: 4.61 Aortic Valve AoV Pk Christopher: 1.14 AoV Pk Grad: 5.00 TOMER: 4.52 LVOT LVOT Pk Christopher: 1.13 LVOT Mn Christopher: 0.81 LVOT VTI: 0.22 LVOT Pk Grad: 5.00 LVOT Mn Grad: 3.00 LVOT Diam: 2.40 LVOT Area: 4.52 Diastolic Function MV Pk E: 0.78 MV Pk A: 0.72 E/A: 1.10 E'Medial: 5.87 E/E' Med: 13.20 E' Laterial: 6.31 E/E' Lat: 12.30 Right Ventricle TAPSE (mm): 24.80 TVS' Christopher: 14.50 Tricuspid Valve TR Pk Christopher: 2.46 TR Pk Grad: 24.00 RA Press: 3.00 RVSP: 27.00 Great Vessels Aorta Sinus of Valsalva: 3.50 2.0-3.5 cm Ao Asc: 3.40 2.1-3.4 cm Ao Arch: 3.30 Pulmonary Valve PV Pk Christopher: 1.02 Peak PV Grad: 4.00 Updated in Other Vendor System with Status of Final Lang Ryder MD electronically signed on 08/28/2024 10:54:37 AM with status of Final
[2024-08-28 07:33] LABS: Alanine Aminotransferase 20 U/L (0-40); Alkaline Phosphatase 72 U/L (39-117); Anion Gap 10 (12-20); Aspartate Amino Transferase 27 U/L (5-37); Bilirubin Total 0.6 mg/dL (0.0-1.0); Blood Urea Nitrogen 19 mg/dL (9-16); Calcium 8.9 mg/dL (8.4-10.2); Carbon Dioxide 27 mmol/L (22-29); Chloride 104 mmol/L (96-108); Creatinine Clr Calc Pharmacy 114.9; Estimated Glomerular Filt Rate > 60; Glucose Random 108 mg/dL (60-115); Potassium 3.7 mmol/L (3.3-5.1); Sodium 137 mmol/L (135-145); Total Protein 6.7 g/dL (6.5-8.0)
[2024-08-28 07:46] LABS: Troponin-I High Sensitivity 446.5 ng/L (<3.5-35.0)
--- NOTE | 2024-08-28 07:48 | ECG_ITS ---
Test Reason : REPEAT DUE TO INCREASED TROP Blood Pressure : / mmHG Vent. Rate : 076 BPM Atrial Rate : 076 BPM P-R Int : 146 ms QRS Dur : 136 ms QT Int : 420 ms P-R-T Axes : 008 041 -04 degrees QTc Int : 472 ms Normal sinus rhythm Right bundle branch block Abnormal ECG When compared with ECG of 28-AUG-2024 04:51, No significant change was found Referred By: Mane Antunez Electronically Signed By:Lang Ryder
--- NOTE | 2024-08-28 08:05 | PC.NURSE ---
Critical trop taken and MD Antunez notified, repeat EKG order placed per his request and sent pic of it via [employer].
--- NOTE | 2024-08-28 08:11 | MHC.EDTECH ---
EKG was taken,given to the RN Caridad and she send to the doctor.
--- NOTE | 2024-08-28 09:06 | PHA.MEDREC ---
Pharmacy Consult ? Medication Reconciliation Pharmacy has completed the medication reconciliation. Spoke with patient and he was able to confirm his medications. He confirmed he took everything yesterday.
--- NOTE | 2024-08-28 10:09 | PM.CNCAR ---
History of Present Illness History of Present Illness Date of Service: 08/28/24 Requesting physician: Mane Antunez Chief complaint: nstemi Narrative: 69-year-old gentleman with background history of hypertension and hyperlipidemia presenting with chest discomfort which he felt like an indigestion like feeling along with sweating episode last evening. With these symptoms he presented to [facility] and ruled in for NSTEMI. He has no further symptoms at this point and has been on a heparin drip. Blood pressure is well controlled. He is denying any significant cardiovascular history in the past. He did have stress testing many years ago which was normal. He has hammertoes and was supposed to get surgery in 10/23/2024. With no significant allergies. Labs reviewed. High sensitivity troponin level 446. COVID negative influenza negative. EKGs showing sinus rhythm with right bundle-branch block, no obvious ischemic changes. Right bundle-branch block is old. [facility] Past Medical History Medical History (Updated 08/28/24 @ 06:34 by Duncan Montana MD) GERD (gastroesophageal reflux disease) Hyperlipidemia Hypertension Social History Social History Alcohol intake: current Alcohol intake frequency: a few times a week Patient Tobacco Use Status: Never used Tobacco Smoked in Last 30 Days: No Use of substances other than those prescribed or required for medical reasons: No Advance Directives: No Advance Directives Information Provided: Yes Do you have a plan to hurt others: No Plan Nutrition Risks: No Nutritional Risk Meds Allergies Allergy/AdvReac Type Severity Reaction Status Date / Time No Known Allergies Allergy Verified 08/28/24 01:31 [No Known Allergies*] Active Medications: Current Medications Acetaminophen (Acetaminophen 325 Mg Tablet) 650 mg PO Q6H PRN PRN Reason: Pain, Mild 1-3,fever,headache Calcium Carbonate (Calcium Carbonate 750 Mg Tab.Chew) 750 mg PO Q4H PRN PRN Reason: Heartburn Cyanocobalamin (Cyanocobalamin (Vitamin B-12) 1,000 Mcg Tablet) 1,000 mcg PO DAILY SPEEDY Heparin Sodium (Porcine) (Heparin Sodium,Porcine 5,000 Unit/Ml Vial) 4,000 unit 40 unit/kg (4000 unit) IVPUSH PROTOCOL BOLUS PRN; Protocol PRN Reason: 40 unit/kg - Heparin Protocol Heparin Sodium (Porcine) (Heparin Sodium,Porcine 5,000 Unit/Ml Vial) 8,000 unit 80 unit/kg (8000 unit) IVPUSH PROTOCOL BOLUS PRN; Protocol PRN Reason: 80 unit/kg - Heparin Protocol Heparin Sodium/Sodium Chloride (Heparin Sodium,Porcine/1/2ns) 25,000 unit in 250 mls @ 0 mls/hr IVCONT .Q0M [facility]; Protocol Last Admin: 08/28/24 05:40 Dose: 10.02 units/kg/hr, 10 mls/hr Magnesium Hydroxide (Milk Of Magnesia 30 Ml Oral.Susp) 30 ml PO DAILY PRN PRN Reason: Constipation Melatonin (Melatonin 3 Mg Tablet) 6 mg PO BEDTIME PRN PRN Reason: Insomnia Metoprolol Tartrate (Metoprolol Tartrate 25 Mg Tablet) 25 mg PO BID [facility]; Protocol Morphine Sulfate (Morphine Sulfate 4 Mg/Ml Cartridge) 2 mg IVPUSH Q6H PRN; Protocol PRN Reason: Pain, Severe (Pain Scale 7-10) Omeprazole (Omeprazole 20 Mg Capsule.) 20 mg PO DAILY@0630 [facility] Polyethylene Glycol (Polyethylene Glycol 3350 17 Gm Powd.Pack) 17 gm PO DAILY PRN PRN Reason: Constipation Pravastatin Sodium (Pravastatin Sodium 80 Mg Tablet) 80 mg PO DAILY [facility] Home Medications ?Medication ?Instructions ?Recorded ?Confirmed ?Last Taken ?Type acetaminophen 500 mg tablet 1,000 mg PO Q8H PRN Pain 08/28/24 08/28/24 Unknown History cyanocobalamin (vitamin B-12) 1,000 mcg PO DAILY 08/28/24 08/28/24 08/27/24 History 1,000 mcg tablet esomeprazole magnesium 40 mg 40 mg PO DAILY 08/28/24 08/28/24 08/27/24 History capsule,delayed release hydrochlorothiazide 25 mg tablet 25 mg PO DAILY 08/28/24 08/28/24 08/27/24 History lisinopril 20 mg tablet 20 mg PO DAILY 08/28/24 08/28/24 08/27/24 History pravastatin 80 mg tablet 80 mg PO DAILY 08/28/24 08/28/24 08/27/24 History tadalafil 20 mg tablet 20 mg PO DAILY PRN Erectile 08/28/24 08/28/24 Unknown History Dysfunction Physical Exam Vital Signs: Vital Signs: Last Vital Signs Temp 97.9 F 08/28/24 09:26 Pulse 75 08/28/24 09:26 Resp 18 08/28/24 09:26 BP 127/71 08/28/24 09:26 Pulse Ox 94 08/28/24 06:04 O2 Del Method Room Air 08/28/24 06:04 BMI result Body Mass Index 32.6 GENERAL APPEARANCE: in no acute distress, pleasant. NECK: no carotid bruit, no jugular venous distention. SKIN: no suspicious lesions, warm and dry. HEART: no murmurs, regular rate and rhythm. LUNGS: clear to auscultation bilaterally. ABDOMEN: soft, nontender. EXTREMITIES: no edema. PERIPHERAL PULSES: equal. NEUROLOGIC: No gross deficits, AAO X 3 Objective Labs and Meds 08/28/24 02:17 08/28/24 07:05 Lab results: Laboratory Results - last 24 hr 08/28/24 08/28/24 08/28/24 02:17 02:22 02:57 WBC 7.3 RBC 4.23 L Hgb 13.5 L Hct 39.4 L MCV 93.1 MCH 31.9 MCHC 34.3 RDW 12.3 Plt Count 240 MPV 8.2 L Immature Gran % (Auto) 0.1 Neut % (Auto) 54.1 Lymph % (Auto) 29.1 [place] % (Auto) 11.9 H Eos % (Auto) 3.8 Baso % (Auto) 1.0 Lymph # (Auto) 2.1 [place] # (Auto) 0.9 Eos # (Auto) 0.3 Baso # (Auto) 0.1 Abs Immat Gran (auto) 0.01 Absolute Neuts (auto) 4.0 Absolute Nucleated RBC 0.000 Nucleated RBC % (auto) 0.0 PT 10.7 L INR 0.9 APTT 31.6 Sodium 139 Potassium 3.6 Chloride 104 Carbon Dioxide 27 Anion Gap 12 BUN 20 H Creatinine 0.84 Estim Creat Clear Calc 97.0 Estimated GFR > 60 Random Glucose 116 H Calcium 9.2 Magnesium 1.9 Total Bilirubin 0.3 AST 25 ALT 19 Alkaline Phosphatase 71 Troponin I High Sens 6.3 Total Protein 6.7 Albumin 4.0 Influenza Type A (PCR) NEGATIVE Influenza Type B (PCR) NEGATIVE RSV RNA Qual (PCR) NEGATIVE SARS-CoV-2 RNA (RT-PCR) NEGATIVE 08/28/24 08/28/24 04:22 07:05 WBC RBC Hgb Hct MCV MCH MCHC RDW Plt Count MPV Immature Gran % (Auto) Neut % (Auto) Lymph % (Auto) [place] % (Auto) Eos % (Auto) Baso % (Auto) Lymph # (Auto) [place] # (Auto) Eos # (Auto) Baso # (Auto) Abs Immat Gran (auto) Absolute Neuts (auto) Absolute Nucleated RBC Nucleated RBC % (auto) PT INR APTT Sodium 137 Potassium 3.7 Chloride 104 Carbon Dioxide 27 Anion Gap 10 L BUN 19 H Creatinine 0.73 Estim Creat Clear Calc 114.9 Estimated GFR > 60 Random Glucose 108 Calcium 8.9 Magnesium Total Bilirubin 0.6 AST 27 ALT 20 Alkaline Phosphatase 72 Troponin I High Sens 108.1 H* D 446.5 H* D Total Protein 6.7 Albumin 4.0 Influenza Type A (PCR) Influenza Type B (PCR) RSV RNA Qual (PCR) SARS-CoV-2 RNA (RT-PCR) Assessment and Plan (1) NSTEMI (non-ST elevated myocardial infarction): Status: Acute Plan Pleasant 69 year gentleman presenting with chest discomfort and NSTEMI. EKGs right bundle-branch block which is old and no dynamic changes noted. Clinical story is quite concerning and he has been started on heparin drip for treatment of NSTEMI. He has been symptom free so far. Blood pressure is well controlled. Change pravastatin to atorvastatin 80 mg daily. Continue baby aspirin 81 mg daily. Agree with metoprolol 25 mg twice a day. Gentle hydration and keep him NPO. Plan is cardiac catheterization later today. We will transferred to [facility]. I have discussed with him in detail about cardiac catheterization. He is agreeable for cardiac catheterization. Further recommendations will be made after cardiac catheterization. We will try to do echocardiogram before he is transferred. Thank you for allowing me to participate in the care of your patient. Please feel free to contact me if you have any questions. Procedures Date of Service Date of Service: 08/28/24
--- NOTE | 2024-08-28 10:22 | MHC.CM.PN ---
Pt to be transferred to [facility] for cardiac cathedarization today via BLS.
--- NOTE | 2024-08-28 10:40 | P.DS_ITS ---
DS: Providers Provider Date of Service: 08/28/24 Date of admission: 08/28/24 05:53 Primary care physician: Unknown Physician Consults: 08/28/24 05:50 Consult to Cardiology Routine Consulting Provider: [facility] Reason for consultation: NSTEMI Has provider been notified: Yes DS: Diagnosis Discharge Diagnosis (1) NSTEMI (non-ST elevated myocardial infarction): Status: Acute DS: Summary Hospital Course Hospital Course: admission hpi This is a 69-year-old male with a history of hypertension (HTN), hyperlipidemia (HLD), and gastroesophageal reflux disease (GERD) who presented with non- radiating, constant chest pain rated 4/10 since 2199, associated with nausea and vomiting. His symptoms were unresponsive to antacids (Tums), prompting his to bring him to the ED around 2 AM. Initial workup revealed an ECG with RBBB but no ischemic changes, and a first troponin level of 108, consistent with myocardial injury. ED management included aspirin (ASA) and nitroglycerin, with cardiology recommending IV heparin. He is currently chest-pain free and hemodynamically stable. Hsopital course: The patient was admitted several hours ago with chest pain and was diagnosed with NSTEMI. Serial troponins have risen significantly, starting at 6, then 108, and most recently 446. ECG findings reveal a right bundle branch block (RBBB) without ischemic changes. The patient is currently experiencing chest pain. Management has included aspirin (ASA), high-intensity statin therapy with atorvastatin 80 mg, metoprolol, as-needed nitroglycerin, and an intravenous heparin drip. Cardiology has recommended transferring the patient to [facility] for further evaluation, including cardiac catheterization and potential revascularization. Time Attestation Discharge Coordination Time (in mins): 35 Quality: Safe Use of Opioids Does Pt have an Active Cancer Diagnosis on the Problem List?: No Quality: Stroke Does the patient have a stroke diagnosis?: No Physical Exam Vital Signs: Vital Signs: Last Vital Signs Temp 97.9 F 08/28/24 09:26 Pulse 75 08/28/24 09:26 Resp 18 08/28/24 09:26 BP 127/71 08/28/24 09:26 Pulse Ox 94 08/28/24 06:04 O2 Del Method Room Air 08/28/24 06:04 BMI result Body Mass Index 33.5 Const: Other: General: AO X 3, no acute distress Resp: CTA bilateral CVS: S1,S2,RRR GI: +BS, NT, no distention Skin: No rash Neuro: motor grossly intact Psych: appropriate affect DS: Data Data Completed and Pending Labs on day of discharge: Laboratory Results - last 24 hr 08/28/24 08/28/24 08/28/24 02:17 02:22 02:57 WBC 7.3 RBC 4.23 L Hgb 13.5 L Hct 39.4 L MCV 93.1 MCH 31.9 MCHC 34.3 RDW 12.3 Plt Count 240 MPV 8.2 L Immature Gran % (Auto) 0.1 Neut % (Auto) 54.1 Lymph % (Auto) 29.1 Vance % (Auto) 11.9 H Eos % (Auto) 3.8 Baso % (Auto) 1.0 Lymph # (Auto) 2.1 Vance # (Auto) 0.9 Eos # (Auto) 0.3 Baso # (Auto) 0.1 Abs Immat Gran (auto) 0.01 Absolute Neuts (auto) 4.0 Absolute Nucleated RBC 0.000 Nucleated RBC % (auto) 0.0 PT 10.7 L INR 0.9 APTT 31.6 Sodium 139 Potassium 3.6 Chloride 104 Carbon Dioxide 27 Anion Gap 12 BUN 20 H Creatinine 0.84 Estim Creat Clear Calc 97.0 Estimated GFR > 60 Random Glucose 116 H Calcium 9.2 Magnesium 1.9 Total Bilirubin 0.3 AST 25 ALT 19 Alkaline Phosphatase 71 Troponin I High Sens 6.3 Total Protein 6.7 Albumin 4.0 Influenza Type A (PCR) NEGATIVE Influenza Type B (PCR) NEGATIVE RSV RNA Qual (PCR) NEGATIVE SARS-CoV-2 RNA (RT-PCR) NEGATIVE 08/28/24 08/28/24 04:22 07:05 WBC RBC Hgb Hct MCV MCH MCHC RDW Plt Count MPV Immature Gran % (Auto) Neut % (Auto) Lymph % (Auto) Vance % (Auto) Eos % (Auto) Baso % (Auto) Lymph # (Auto) Vance # (Auto) Eos # (Auto) Baso # (Auto) Abs Immat Gran (auto) Absolute Neuts (auto) Absolute Nucleated RBC Nucleated RBC % (auto) PT INR APTT Sodium 137 Potassium 3.7 Chloride 104 Carbon Dioxide 27 Anion Gap 10 L BUN 19 H Creatinine 0.73 Estim Creat Clear Calc 114.9 Estimated GFR > 60 Random Glucose 108 Calcium 8.9 Magnesium Total Bilirubin 0.6 AST 27 ALT 20 Alkaline Phosphatase 72 Troponin I High Sens 108.1 H* D 446.5 H* D Total Protein 6.7 Albumin 4.0 Influenza Type A (PCR) Influenza Type B (PCR) RSV RNA Qual (PCR) SARS-CoV-2 RNA (RT-PCR) Discharge Plan Discharge Anticipated Discharge Date/Time: 08/28/24 09:56 Patient Disposition: Xfer Acute [facility] Discharge Diagnosis: NSTEMI Referrals: Physician,Unknown J [Primary Care Provider] - 1 Week Discharge Medications: New metoprolol tartrate 25 mg Tablet 25 mg PO BID Qty: 60 0RF Protocol: Hold for SBP/HR < HOLD for SBP < : 90 HOLD for HR < : 60 heparin(porcine) in 0.45% NaCl 25,000 unit/250 mL Parenteral Solution 25,000 unit continuous IV infusion .Q0M Qty: 6000 0RF Rx Instructions: for heparin and PTT protocol aspirin 81 mg capsule 81 mg PO DAILY Qty: 90 0RF Continued cyanocobalamin (vitamin B-12) 1,000 mcg tablet 1,000 mcg PO DAILY pravastatin 80 mg tablet 80 mg PO DAILY esomeprazole magnesium 40 mg capsule,delayed release(DR/EC) 40 mg PO DAILY acetaminophen 500 mg tablet 1,000 mg PO Q8H PRN (Reason: Pain) Held lisinopril 20 mg tablet 20 mg PO DAILY Hold Instructions: Resume on 09/01/24. hydrochlorothiazide 25 mg tablet 25 mg PO DAILY Hold Instructions: Resume on 09/04/24. tadalafil 20 mg tablet 20 mg PO DAILY PRN (Reason: Erectile Dysfunction) Hold Instructions: Resume on 09/04/24. Discharge Orders: Discharge Order (Routine); Ordered 08/28/24 Ordered By: Mane Antunez Diet: Advance to usual diet Activity on Discharge: As tolerated Stand Alone Forms: Patient Portal Discharge page Print Language: Slovenian Care Plan Goals: recovery from nstemi Health Concerns: nstemi Plan of Treatment: transfer to [facility] for cardiac cath, continue heparin, ASA, metoprolol and high intensity statin Assessment: see above
[2024-08-28 11:11] LABS: D Dimer High Sensitivity < 150 NG/ML
[2024-08-28 12:05] LABS: PTT Heparin Drip 44.4 SEC (53-77.9)
--- NOTE | 2024-08-28 12:31 | PC.NURSE ---
patient dc before this nurse could increase heparin drip rate by 2 units/kg/hr. receiving nurse at [facility] notified of hep. aptt result
== END 2024-08-28 12:15 | disposition short-term general hospital (02) | DRG 282 ==
LOC: HO.ED 02:43 → HO.EDOVER 06:06 → HO.IMC 08:06
PROVIDERS: Internal Medicine Cardiovascular Disease; Admitting Provider Internal Medicine; Emergency Provider Internal Medicine; Visit Provider Internal Medicine
DX: I21.4 Non-ST elevation (NSTEMI) myocardial infarction (principal); K21.9 Gastro-esophageal reflux disease without esophagitis; I10 Essential (primary) hypertension; E78.5 Hyperlipidemia, unspecified; Z20.822 Contact with and (suspected) exposure to COVID-19; Z79.899 Other long term (current) drug therapy
CPT/HCPCS: 0241U; 36415; 80053; 83735; 84484; 85025; 85379; 85610; 85730; 93005; 93306; 99285; J1644; Q9957

== ENCOUNTER → 2024-08-28 05:53 | Outpatient (BNV) | payer MEDICARE, SELFPAY | PROVIDERS: Admitting Provider Internal Medicine; Emergency Provider Internal Medicine; Visit Provider Internal Medicine Cardiovascular Disease | DX: I21.4 Non-ST elevation (NSTEMI) myocardial infarction (principal); I42.2 Other hypertrophic cardiomyopathy; I49.3 Ventricular premature depolarization; R94.31 Abnormal electrocardiogram [ECG] [EKG] | CPT/HCPCS: 93010; 93306; 99223 ==

== ENCOUNTER → 2024-08-28 05:53 | Outpatient (BNV) | payer MEDICARE, SELFPAY | PROVIDERS: Admitting Provider Internal Medicine; Emergency Provider Internal Medicine; Visit Provider Internal Medicine | DX: I21.4 Non-ST elevation (NSTEMI) myocardial infarction (principal) | CPT/HCPCS: 99223; 99499 ==

== ENCOUNTER 2024-11-03 14:36 | Outpatient (AMB) | payer MEDICARE, SELFPAY ==
--- NOTE | 2024-11-03 14:39 | MHC.OFFVIS ---
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 He was seen in the hospital when he presented with chest pain and NSTEMI. He had indigestion like chest discomfort and vomiting and ruled in for NSTEMI. He was taken urgently for cardiac catheterization which showed left main stenosis involving the bifurcation. He underwent CABG x4 and since then has been doing well. He is denying any chest discomfort. No shortness of breath. He is doing cardiac rehabilitation and is progressing there. He currently does not know his medications correctly. By discharge summary from [facility] he is supposed to be on Plavix and atorvastatin. he is status saying that he is taking pravastatin. I have advised him to call us and update the medication list as he goes home. [facility] Medical History (Updated 11/03/24 @ 19:05 by Lang Ryder MD) GERD (gastroesophageal reflux disease) Hyperlipidemia Hypertension Surgical History (Updated 11/03/24 @ 19:05 by Lang Ryder MD) Hx of cardiac cath Social History Household Members: Spouse Housing: House Do you presently have visiting nurse or other home services: No Alcohol intake: current Alcohol intake frequency: a few times a week Patient Tobacco Use Status: Former Tobacco user Review of Systems Const Denies chills, Denies fatigue, Denies fever(s), Denies frequent falls, Denies weakness, Denies weight gain and Denies weight loss ENT Denies dizziness Card Denies chest pain, Denies leg edema, Denies lightheadedness, Denies palpitations, Denies dyspnea and Denies dyspnea on exertion Resp Denies cough, Denies dyspnea and Denies dyspnea on exertion GI Denies hematochezia Musc Denies abnormal gait, Denies muscle weakness, Denies numbness, Denies radiating pain into limb and Denies tingling Neuro Denies abnormal gait, Denies dizziness, Denies frequent falls, Denies numbness, Denies tingling and Denies weakness Endo Denies fatigue and Denies palpitations Physical Exam Vital Signs: Last Vital Signs Pulse 83 11/03/24 14:41 BP 124/60 11/03/24 14:41 BMI result Body Mass Index 31.3 GENERAL APPEARANCE: in no acute distress, pleasant. NECK: no carotid bruit, no jugular venous distention. SKIN: Well-healed midline sternotomy scar. HEART: no murmurs, regular rate and rhythm. LUNGS: clear to auscultation bilaterally. ABDOMEN: soft, nontender. EXTREMITIES: no edema. PERIPHERAL PULSES: equal. NEUROLOGIC: No gross deficits, AAO X 3 Office Procedures EKG Details: Sinus rhythm 83 beats per minute, right bundle-branch block, left posterior fascicular block. QTC 479 milliseconds. [id number], Complete Assessment & Plan Assessment & Plan (1) Stable angina: Code(s): I20.89 - Other forms of angina pectoris Category: Medical (2) S/P CABG x 4: Code(s): Z95.1 - Presence of aortocoronary bypass graft Category: Medical Plan [age] gentleman who is here for follow-up. He was seen in the hospital when he presented with NSTEMI. He underwent urgent cardiac catheterization which showed severe left main stenosis and underwent coronary artery bypass surgery urgently while inpatient. He has done quite well since the surgery and has recovered very well. Denying any anginal symptoms currently. Blood pressure is well controlled. He is taking aspirin but he is supposed to be on Plavix too. He is saying that he is taking super aspirin if there is some confusion about his medications. He will confirm his medications as he will go home. He is doing cardiac rehabilitation. He wants to start using a gym. I have advised him to complete cardiac rehab and then go to a gym. He is almost there over the next month though. Thank you for allowing me to participate in the care of your patient. Please feel free to contact me if you have any questions. Coding Level of Care Code Est Pt Level 4 (64641) Diagnoses Stable angina I20.89 S/P CABG x 4 Z95.1 CPT Codes EKG - CPT: 36588-[id number], Complete ([id number])
[2024-11-03 14:41] VITALS: BP 124/60; PULSE 83; BMI 31.3
--- OUTSIDE RECORDS SUMMARY | 2024-11-03 17:24 | XMS_ITS | Continuity of Care Document ---
Author Organization [facility] Address [address] [place] [address]- Care Team Providers Care Molding Manager Name Role Phone Heladio Serra MD Primary Care Physician Encounter [facility] Date(s): 09/09/24 - 10/09/24 [facility] [address] [place] [address] Drive [address] [place], [place] [address] Encounter Type: Triage Allergies, Adverse Reactions, Alerts No Known Allergies Immunizations Given and Recorded Vaccine Date Status Refusal Reason influenza virus vaccine, inactivated 05/26/24 Bradford rded influenza virus vaccine, inactivated 05/18/23 Bradford rded influenza virus vaccine, inactivated 07/04/22 Bradford rded influenza virus vaccine, inactivated 08/24/21 Bradford rded influenza virus vaccine, inactivated 06/18/20 Give n influenza virus vaccine, inactivated 05/25/18 Give n influenza virus vaccine, inactivated 06/15/17 Bradford rded influenza virus vaccine, inactivated 06/14/16 Bradford rded influenza virus vaccine, inactivated 05/28/15 Bradford rded influenza virus vaccine, inactivated 06/18/14 Give n influenza virus vaccine, inactivated 07/01/13 Give n influenza virus vaccine, inactivated 1 06/01/11 Gi freeman influenza virus vaccine, inactivated 2 07/08/10 Gi freeman tetanus-diphtheria toxoids (Td) 03/28/24 Given tetanus/diphtheria/pertussis, acel(Tdap) 11/17/23 Recorded tetanus/diphtheria/pertussis, acel(Tdap) 11/25/13 Given tetanus/diphtheria/pertussis, acel(Tdap) 10/15/12 Given Influenza Virus Vaccine (oldterm) 06/21/22 Recorde d Influenza Virus Vaccine (oldterm) 05/14/19 Recorde d [id number] 12y+ bivalent booster vax 06/21/22 Recorded [id number] 12y+ bivalent booster vax 06/16/22 Recorded SARS-CoV-2 (COVID-19) mRNA-1273 vaccine 09/08/21 R ecorded SARS-CoV-2 (COVID-19) mRNA-1273 vaccine 01/02/21 R ecorded SARS-CoV-2 (COVID-19) mRNA-1273 vaccine 12/03/20 R ecorded pneumococcal 23-valent vaccine 10/06/19 Given pneumococcal 13-valent vaccine 06/21/18 Given pneumococcal 13-valent vaccine 06/21/18 Given zoster vaccine, inactivated 04/24/18 Given zoster vaccine, inactivated 02/22/18 Given Fluarix (oldterm) 06/01/12 Given 1Admin Note: work 2Admin Note: per pt Medications acetaminophen 325 mg oral tablet 975 mg, By Mouth, Every 6 hours, Refills 0, Maintenance, 09/03/24 2:23:00 PM EST, Partial fill upon patient request if the prescription is for a schedule II opioid drug. Start Date: 09/03/24 Status: Ordered Repeat number: 1 aspirin 81 mg oral delayed release tablet 81 mg, By Mouth, Daily, # 30 tablet, Refills 0, Tot. Refills 0, Maintenance, 09/03/24 2:23:00 PM EST,Route to Pharmacy Electronically, [facility]/pharmacy #[id number], Partial fill upon patient request if the prescription is for a schedule II opioid drug., 181, cm, 09/03/24 4:29:00 EST, Height, 101, kg, 08/28/2416:05:00 EST, Dry Weight Start Date: 09/03/24 Status: Ordered Quantity: 30.0 Unit: tablet Repeat number: 1 atorvastatin 80 mg oral tablet = 80 mg, By Mouth, Daily at bedtime, # 30 tablet, 0 Refills, Maintenance, 09/03/24 2:23:00 PM EST, Tablet, [facility]/pharmacy #[id number], Partial fill upon patient request if the prescription is for a schedule IIopioid drug., 181, cm, 09/03/24 4:29:00 EST, Height, 101, kg, 08/28/24 16:05:00 EST, Dry Weight Start Date: 09/03/24 Status: Ordered Quantity: 30.0 Unit: tablet Repeat number: 1 Docusate Sodium Capsule 200 mg, 2, capsule, By Mouth, Daily, Refills 0, Maintenance, 09/03/24 2:23:00 PM EST, Partial fill upon patient request if the prescription is for a schedule II opioid drug. Start Date: 09/03/24 Status: Ordered Repeat number: 1 esomeprazole 40 mg oral enteric coated capsule 1 capsule, By Mouth, Daily, # 90 capsule, 1 Refills, Maintenance, 09/04/24 7:11:00 AM EST, [facility] STORE [id number], 181, cm, 09/03/24 4:29:00 EST, Height, 101, kg, 08/28/24 16:05:00 EST, Dry Weight Start Date: 09/04/24 Status: Ordered Quantity: 90.0 Unit: capsule Repeat number: 1 metoprolol 25 mg oral tablet 12.5 mg, 0.5, tablet, By Mouth, 2 times a day, # 60 tablet, Refills 1, Tot. Refills 1, Maintenance,09/26/24 9:36:00 AM EST, Route to Pharmacy Electronically, [facility]/pharmacy #[id number], Partial fill upon patient request if the prescription is for a schedule II opioid drug., 181, cm, 09/26/24 9:05:00 EST, Height, 101, kg, 08/28/24 16:05:00 EST, Dry Weight Start Date: 09/26/24 Status: Ordered Quantity: 60.0 Unit: tablet Repeat number: 2 Plavix 75 mg oral tablet 75 mg, By Mouth, Daily, # 90 tablet, Refills 3, Tot. Refills 3, Maintenance, 09/26/24 9:36:00 AM EST, Route to Pharmacy Electronically, [facility]/pharmacy #[id number], Partial fill upon patient request if the prescription is for a schedule II opioid drug., 181, cm, 09/26/24 9:05:00 EST, Height, 101, kg, 08/28/24 16:05:00 EST, Dry Weight Start Date: 09/26/24 Stop Date: 09/21/25 Status: Ordered Quantity: 90.0 Unit: tablet Repeat number: 4 Vashe Topical Solution 475 mL, Topically, Every 12 hours, 0 Refills, Maintenance, Solution Start Date: 09/03/24 Status: Ordered Repeat number: 1 Vitamin B12 1000 mcg oral tablet 1 tablet = 1,000 mcg, By Mouth, Daily, # 90 tablet, 3 Refills, Maintenance, 05/01/24 9:35:00 AM EDT,Tablet, [facility]/pharmacy #[id number], Partial fill upon patient request if the prescription is for a scheduleII opioid drug., 182, cm, 05/01/24 9:11:00 EDT, Height, 105.1, kg, 05/01/24 9:11:00 EDT, Dry Weight Start Date: 05/01/24 Status: Ordered Quantity: 90.0 Unit: tablet Repeat number: 4 Problem List Condition Confirmation Course Effective Dates Status Health Status Informant Cordova's esophagus 1, 2, 3, 4, 5, 6 Confirmed Active BMI 33.0-33.9,adult Confirmed Active Carotid artery stenosis Confirmed Active Cataract Confirmed Active Gastroesophageal reflux disease with hiatal hernia Confirmed Active Hearing loss Confirmed Active S/P CABG x 4 Confirmed Active History of colon polyps 7, 8, 9, 10 Confirmed Active Hx of right inguinal hernia repair Confirmed Active Hypercholesterolemia Confirmed Active Hypertension Confirmed Active Glucose intolerance (pre-diabetes) Confirmed Active Erectile dysfunction Confirmed Active Dermatitis Confirmed Active Osteoarthritis Confirmed Active Peripheral neuropathy Confirmed Active Plantar fasciitis Confirmed Active THR - Total hip replacement Confirmed Active Tinnitus Confirmed Active Vasovagal syncope Confirmed Active Venous stasis syndrome Confirmed Active 92477; repeat 2024 91403; repeat 2021 3Endoscopy 2019+ Cordova's esophagus, repeat 2021. 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 with indefinite area with question dysplasia. 5egd 2011 barretts, no dysplasia, repeat 2014 6egd 2007 barretts, needs repeat 2010; repeat 2023 8Colonoscopy 2019+ polyp, repeat 2023. 9Colonoscopy 2014 positive polyp, repeat 2018. 10colo 2008 polyp, reopeat 2013 Social History Social History Type Response Smoking Status Former smoker; Other : Quit smoking age 31; entered on: 07/12/16 Sex Sex Representation Male (finding) Patient Care team information Care Team Personnel Name: Margo Esparza RN Position: [facility] RN Member Role: Primary Care Nurse Name: Heladio Serra MD Position: [facility] Physician - Primary Care Member Role: PCP Address: [address] [place] [phone] Telecom: Name: Izabel Stratton RN Position: [facility] RN Member Role: Primary Care Nurse Name: Supriya Roberts RN Position: [facility] RN Member Role: Primary Care Nurse Name: Razia Raymundo RN Position: [facility] RN Member Role: Primary Care Nurse Care Team Related Persons Name: STEVEN LARA Insurance Providers Guarantor name: MONIQUE [facility]RCO [facility] Information #: 1 Payer: [employer]ET[employer] MEDICARE ADV HMO Member Number: NA Policy Number: NA Group Number: NA
--- OUTSIDE RECORDS SUMMARY | 2024-11-03 17:24 | XMS_ITS | Continuity of Care Document ---
Author Organization [facility] Address [address] [place] [address]- Care Team Providers Care Range Ecologist Name Role Phone Heladio Serra MD Primary Care Physician Encounter [facility] Date(s): 09/26/24 - 10/26/24 [facility] [address] [place] [address] Drive [address] [place], [place] [address] Attending Physician: Admtr Ar8 Admitting Physician: Admtr, Ar8 Referring Physician: Admtr, Ar8 Encounter Type: Triage Allergies, Adverse Reactions, Alerts [...] Influenza Virus Vaccine (oldterm) 05/14/19 Recorde d [id number] 12y+ bivalent booster vax 06/21/22 Recorded [id number] 12y+ bivalent booster vax 06/16/22 Recorded SARS-CoV-2 [...] 09/03/24 2:23:00 PM EST,Route to Pharmacy Electronically, [facility]/pharmacy #[id number], Partial fill upon patient request if the prescription is for a schedule II opioid drug., 181, cm, 09/03/24 4:29:00 EST, Height, 101, kg, 08/28/2416:05:00 EST, Dry Weight Start Date: 09/03/24 Status: Ordered Quantity: 30.0 Unit: tablet Repeat number: 1 atorvastatin 80 mg oral tablet = 80 mg, By Mouth, Daily at bedtime, # 30 tablet, 0 Refills, Maintenance, 09/03/24 2:23:00 PM EST, Tablet, [facility]/pharmacy #[id number], Partial fill upon patient request if [...] 1 Refills, Maintenance, 09/04/24 7:11:00 AM EST, [facility] STORE [id number], 181, cm, 09/03/24 4:29:00 EST, Height, 101, kg, 08/28/24 16:05:00 EST, Dry Weight Start Date: 09/04/24 Status: Ordered Quantity: 90.0 Unit: capsule Repeat number: 1 metoprolol 25 mg oral tablet 12.5 mg, 0.5, tablet, By Mouth, 2 times a day, # 60 tablet, Refills 1, Tot. Refills 1, Maintenance,09/26/24 9:36:00 AM EST, Route to Pharmacy Electronically, [facility]/pharmacy #[id number], Partial fill upon patient request if [...] 9:36:00 AM EST, Route to Pharmacy Electronically, [facility]/pharmacy #[id number], Partial fill upon patient request if [...] 3 Refills, Maintenance, 05/01/24 9:35:00 AM EDT,Tablet, [facility]/pharmacy #[id number], Partial fill upon patient request if the [...] Confirmed Active Venous stasis syndrome Confirmed Active 41869; repeat 2024; repeat 2021 3Endoscopy 2019+ Cordova's esophagus, repeat 2021. 4EGD 2015 Cordova's esophagus with indefinite area with question dysplasia. 5egd 2011 barretts, no dysplasia, repeat 2014 6egd 2007 barretts, needs repeat 2010; repeat 2023 8Colonoscopy 2019+ polyp, repeat 2023. 9Colonoscopy 2013 positive polyp, repeat 2018. 10colo 2008 polyp, reopeat 2012 Social History Social History Type Response Smoking Status Former smoker; Other : Quit smoking age 31; entered on: 07/12/16 Sex Sex Representation Male (finding) Patient Care team information Care Team Personnel Name: Margo Esparza RN Position: [facility] SN RN Member Role: Primary Care Nurse Name: Heladio Serra MD Position: [facility] Physician - Primary Care Member Role: PCP Address: [address] [place] [phone]- Telecom: Name: Izabel Stratton RN Position: S RN Member Role: Primary Care Nurse Name: Supriya Roberts RN Position: [facility] RN Member Role: Primary Care Nurse Name: Razia Raymundo RN Position: [facility] RN Member Role: Primary Care Nurse Care Team Related Persons Name: STEVEN LARA Insurance Providers Guarantor name: MONIQUE [facility] Plan Information #: 1 Payer: [employer]ET[employer] MEDICARE ADV HMO Member Number: NA Policy Number: NA Group Number: NA
--- OUTSIDE RECORDS SUMMARY | 2024-11-03 17:24 | XMS_ITS ---
Author Name [facility] [place] [facility] [place] Address [address] [place] [id number] Care Team Providers Care Stitcher Utility Name Role Phone WARREN BEAN Primary Care Provider [facility] Insurance Providers: All historical and current Section Date Range: From patient's date of to the date document was created. This section includes the names of all active insurance providers for the patient. Insurance Provider Type of Coverage Plan Name Start of Policy Coverage End of Policy Coverage Group Number Member ID Insurance Provider's Telephone Number Policy Hernandez's Name Patient's Relationship to Policy Hernandez [facility] ([facility]) MEDICARE ADVANTAGE [employer] ([facility]) Sep 03, 2022 [id number] [phone] CHAD LARA PATIENT [facility] ([facility]) MEDICARE ADVANTAGE [facility] ([facility]) Sep 03, 2018 [id number] CHAD LARA PATIENT Selected Encounter This section includes the information on record at [place] for the Encounter. Date/Time Encounter Type Encounter Description Reason Provider Source Feb 25, 2024 08:30 AM HEARING AID REPAIR/MODIFYING AUDIOLOGY ICD-10-CM Z46.1 Encounter for fitting and adjustment of hearing aid SUMAN QUINN Encounter Template Text not used by [facility] Assessments - Encounter Diagnoses This section includes the primary and secondary diagnoses documented for the Encounter. Date/Time Primary/Secondary Diagnosis Diagnosis Name Provider Source Feb 25, 2024 09:00 AM PRIMARY Encounter for fitting and adjustment of hearing aid [facility] GUPTA [facility] Feb 25, 2024 09:00 AM SECONDARY Sensorineural hearing loss, bilateral KAIDEN GUPTA [facility] Plan of Treatment: Future Appointments (+ 6 months) and Future Tests (+/- 45 days) The Plan of Treatment section includes future care activities for the [facility] [place] [facility] This section includes future appointments and future orders which are active, pending or scheduled. Future Appointments This section includes appointments that were scheduled to occur 6 months from the date of the Encounter, up to a maximum of 20 appointments. The data comes from all [place] treatment facilities. Appointment Date/Time Appointment Type Appointme nt Facility Name Mar 28, 2024 09:30 AM [facility] Apr 30, 2024 09:00 AM [facility]BULAT[facility] May 26, 2024 08:30 AM AMBULATORY - MEDICINE [facility] Social History: Smoking Status (Most current) and Tobacco Use (All prior to encounter date) This section includes the most current, and the historical, smoking and tobacco- related health factors from the [place] facility where the Encounter took place. Current Smoking Status This section includes the most current smoking, or tobacco-related health factor, from the [place] facility where the Encounter took place. Date/Time Current Smoking Status Comment [facility] Mar 19, 2023 04:04 PM [place]-TOBACCO QUIT 15 YRS OR MORE [facility] Tobacco Use History This section includes a history of the smoking, or tobacco-related health factors, that were collected on or before the date of the Encounter. The data comes from the [place] facility where the Encounter took place. Date/Time Smoking Status/Tobac co Use Comment Facility Mar 19, 2023 04:04 PM [place]-TOBACCO QUIT 15 YRS OR MORE [facility] May 01, 2018 11:03 AM [facility]-TOBACCO FORMER USER [facility] May 01, 2018 11:03 AM [place]-TOBACCO QUIT 15 YRS OR MORE [facility] Nov 29, 2017 11:08 AM QUIT TOBACCO USE > 7 YEARS AGO quit x 40 yrs ( 1 pk a day ) - quit 1972 / restart 1979 for short period [facility] Encounter Notes: All associated encounter notes This section contains the clinical notes associated to the Encounter. Date/Time Encounter Note(s) Provider Source Feb 25, 2024 08:56 AM AUDIOLOGY NOTE: [facility] TITLE: AUDIOLOGY [facility] STANDARD TITLE: AUDIOLOGY NOTE DATE OF NOTE: FEB 25, 2024@08:56 ENTRY DATE: FEB 25, 2024@08:56:11 AUTHOR: WILLI GUPTA COSIGNER: SUMAN QUINN URGENCY: STATUS: COMPLETED February 25, 2024 History/Background: was seen for a hearing aid follow up, unaccompanied. Valier scheduled today's appointment requesting maintenance on his hearing aids. Valier stated the left ct technician wire is rubbing on his hearing and irritating the skin. Hearing aids: [employer]on MORE 1 miniRITE-Rs Serial Numbers: [id number] Date Issued: 11/04/2021 Hearing aid check: Both hearing aids were cleaned and checked. Replaced size 3/85 ct technician with a 2/85 on the left hearing aid and replaced right ct technician 3/85. All debris was removed from the microphones. Biologic check was good. Valier reported better fit of the left aid with the new ct technician. Plan: Follow up as needed. /fay/ WILLI GUPTA [facility] Registered Veterinary Technician Signed: 02/25/2024 09:03 /fay/ SUMAN Ramos, [facility], AUDIOLOGY/CONSUMER SAFETY INSPECTOR Cosigned: 02/25/2024 09:19 WILLI GUPTA [facility]
--- OUTSIDE RECORDS SUMMARY | 2024-11-03 17:24 | XMS_ITS | Continuity of Care Document ---
Author Organization [facility] Address [address] [place] [address]- Care Team Providers Care Stevedore Dock Name Role Phone Heladio Serra MD Primary Care Physician [phone] Encounter [facility] Date(s): 09/16/24 - 10/16/24 [facility] Adult [address] [place] [address]- Encounter Type: Triage Allergies, Adverse Reactions, Alerts [...] Influenza Virus Vaccine (oldterm) 05/14/19 Recorde d [id number] 12y+ bivalent booster vax 06/21/22 Recorded [id number] 12y+ bivalent booster vax 06/16/22 Recorded SARS-CoV-2 [...] 09/03/24 2:23:00 PM EST,Route to Pharmacy Electronically, [facility]/pharmacy #[id number], Partial fill upon patient request if [...] Refills, Maintenance, 09/03/24 2:23:00 PM EST, Tablet, [facility]/pharmacy #[id number], Partial fill upon patient request if [...] 1 Refills, Maintenance, 09/04/24 7:11:00 AM EST, [facility] STORE [id number], 181, cm, 09/03/24 4:29:00 EST, Height, 101, kg, 08/28/24 16:05:00 EST, Dry Weight Start Date: 09/04/24 Status: Ordered Quantity: 90.0 Unit: capsule Repeat number: 1 metoprolol 25 mg oral tablet 12.5 mg, 0.5, tablet, By Mouth, 2 times a day, # 60 tablet, Refills 1, Tot. 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, repeat [...] Team Personnel Name: Margo Esparza RN Position: [facility] RN Member Role: Primary Care Nurse Name: Heladio Serra MD Position: [facility] Physician - Primary Care Member Role: PCP Address: [address] [place] [address]- Telecom: Name: Izabel Stratton RN Position: [facility] RN Member Role: Primary Care Nurse Name: Supriya Roberts RN Position: [facility] RN Member Role: Primary Care Nurse Name: Razia Raymundo RN Position: [facility] RN Member Role: Primary Care Nurse Care Team Related Persons Name: STEVEN LARA Insurance Providers Guarantor name: MONIQUE MARCO [facility]ly [facility], [facility]–1983 Information #: 1 Payer: [employer] MED[employer] ADV HMO Member Number: NA Policy Number: NA Group Number: NA
--- OUTSIDE RECORDS SUMMARY | 2024-11-03 17:24 | XMS_ITS ---
Author Name [facility] [facility] [place] Address [address] [place] [address] Care Team Providers Care Abrasive Sawyer Name Role Phone GRIFFIN BLANTON Primary Care Provider [facility] Insurance Providers: All historical and current [...] Hernandez's Name Patient's Relationship to Policy Hernandez [employer] [facility]) MEDICARE ADVANTAGE MCR ([facility]) Sep 03, 2022 [id number] [phone] CHAD LARA HN PATIENT [facility] ([facility]) MEDICARE ADVANTAGE [facility] ([facility]) Sep 03, 2018 [id number] CHAD LARA PATIENT Selected Encounter This section includes the information on record at [place] for the Encounter. Date/Time Encounter Type Encounter Description Reason Provider Source May 26, 2024 08:30 AM OFFICE O/P EST LOW 20 MIN PRIMARY CARE/MEDICINE ICD-10-CM G62.89 Other specified polyneuropathies EMEKA BLANTON Encounter Template Text not used by [place] Assessments - Encounter Diagnoses This section includes the primary and secondary diagnoses documented for the Encounter. Date/Time Primary/Secondary Diagnosis Diagnosis Name Provider Source May 26, 2024 08:54 AM PRIMARY Other specified polyneuropathies BEAU ZHANG [place] [facility] [place] [facility] May 26, 2024 08:54 AM SECONDARY Encounter for immunization BEAU ZHANG [facility] [place] [facility] May 26, 2024 08:54 AM SECONDARY Essential (primary) hypertension BEAU ZHANG [place] [facility] [place] [facility] May 26, 2024 08:54 AM SECONDARY Gastro-esophageal reflux disease without esophagitis [facility] Plan of Treatment: Future Appointments (+ 6 months) and Future Tests (+/- 45 days) The Plan of Treatment section includes future care activities for the patient from all [place] treatmentfacilities. This section includes future appointments and future orders which are active, pending or scheduled. Future Appointments This section includes appointments that were scheduled to occur 6 months from the date of the Encounter, up to a maximum of 20 appointments. The data comes from all [place] treatment facilities. Appointment Date/Time Appointment Type Appointme nt Facility Name Nov 17, 2024 08:30 AM [facility] Lab Results: +/- 30 days of the encounter This section includes the Chemistry and Hematology Lab Results on record with [place] for the patient. Radiology Reports and Pathology Reports are provided separately, in subsequent sections. Lab Results This section contains the Chemistry/Hematology Results that were resulted 30 days before or 30 daysafter the date of the Encounter. Date/Time Source Result Type Result - Unit Interpretation Reference Range Comment May 26, 2024 09:17 AM [facility] CBC Specimen Type: BLOOD No comment entered. Ordering Provider: EMEKA BLANTON Report Released Date/Time: May 15, 2024 12:51 PM [facility] [address] [address] Performing Lab: [address] [address] WBC 7.83 10*3/uL 4.50-11.00 RBC 4.67 10*6/uL 4.23-5.66 HGB 14.4 g/dL 12.8-17 HCT 42.6 39.2-50.4 MCV 91.2 fL 82-99 MCHC 33.8 g/dL 30.8-35.1 PLT 244 10*3/uL 140-360 RDW-CV 13.9 12.0-16.0 MCH 30.8 pg 26.2-32.6 May 26, 2024 09:17 AM [facility] BASIC METABOLIC PANEL (non-fasting) Specimen Type: SERUM No comment entered. Ordering Provider: EMEKA BLANTON Report Released Date/Time: May 15, 2024 12:51 PM Reporting Lab: [address] [address] Performing Lab: [address] [address] UREA NITROGEN 20 mg/dL 7-25 GLUCOSE 106 mg/dL H 65-100 SODIUM 137 mmol/L 135-145 POTASSIUM 4.2 mmol/L 3.5-5.0 CHLORIDE 104 mmol/L 100-110 CO2 24 meq/L 20-30 CREATININE, Serum 0.85 mg/dL 0.50-1.40 eGFR(CKD-EPI 2020) >90 mL/min >60 May 26, 2024 09:17 AM [facility] LIPID PANEL, NON FASTING Specimen Type: SERUM No comment entered. Ordering Provider: EMEKA BLANTON Report Released Date/Time: May 15, 2024 12:51 PM Reporting Lab: [address] [address] Performing Lab: [address] [address] CHOLESTEROL 155 mg/dL TRIGLYCERIDE 82 mg/dL 0-150 LDL calculated 85 mg/dL 0-129 CHOL/HDL 2.9 HDL CHOLESTEROL 54 mg/dL 40-60 May 26, 2024 09:17 AM [facility] LIVER FUNCTION Specimen Type: SERUM No comment entered. Ordering Provider: BLANTON,WILL BERT J Report Released Date/Time: May 15, 2024 12:51 PM Reporting Lab: [facility] [address] [facility] [address] Performing Lab: [facility] [address] [facility] [address] PROTEIN,TOTAL 7.1 g/dL 6.0-8.3 ALBUMIN 4.2 g/dL 3.5-5.0 ALKALINE PHOSPHATASE 72 U/L 40-150 AST 19 U/L 5-34 ALT 16 U/L BILIRUBIN, TOTAL 0.7 mg/dL 0.2-1.2 Vital Signs: All taken on the encounter date This section contains inpatient and outpatient Vital Signs collected on the date of the Encounter. Date/Time Temperature Pulse Blood Pressure Respiratory Rate SP02 Pain Height Weight Body Mass Index Source May 26, 2024 08:52 AM 138/88 [facility] May 26, 2024 08:03 AM 97.4 93 144/108 20 97 8 71 233 33 [facility] Immunizations: All administered on the encounter date This section contains immunizations associated to the Encounter. Immunization Series Date Issued Reaction Comments INFLUENZA, HIGH-DOSE, TRIVALENT, PF May 26 Social History: Smoking Status (Most current) and Tobacco Use (All prior to encounter date) This section includes the most current, and the historical, smoking and tobacco- related health factors from the [place] facility where the Encounter took place. Current Smoking Status This section includes the most current smoking, or tobacco-related health factor, from the [place] facility where the Encounter took place. Date/Time Current Smoking Status Comment Ramirez vizcaino May 26, 2024 08:30 AM VA-TOBACCO FORMER USER [facility] Tobacco Use History This section includes a history of the smoking, or tobacco-related health factors, that were collected on or before the date of the Encounter. The data comes from the [place] facility where the Encounter took place. Date/Time Smoking Status/Tobac co Use Comment [facility] May 26, 2024 08:30 AM VA-TOBACCO QUIT 15 YRS OR MORE [facility] Mar 19, 2023 04:04 PM VA-TOBACCO FORMER USER [facility] Mar 19, 2023 04:04 PM VA-TOBACCO QUIT 15 YRS OR MORE [facility] May 01, 2018 11:03 AM VA-TOBACCO FORMER USER [facility] May 01, 2018 11:03 AM VA-TOBACCO QUIT 15 YRS OR MORE [facility] Nov 29, 2017 11:08 AM QUIT TOBACCO USE > 7 YEARS AGO quit x 40 yrs ( 1 pk a day ) - quit 1972 / restart 1979 for short period [facility] Encounter Notes: All associated encounter notes This section contains the clinical notes associated to the Encounter. Date/Time Encounter Note(s) Provider Source May 26, 2024 08:48 AM PRIMARY CARE NURSE PRACTITIONER OUTPATIENT NOTE: LOCAL TITLE: NURSE PRACTITIONER OUTPATIENT NOTE STANDARD TITLE: PRIMARY CARE NURSE PRACTITIONER OUTPATIENT NOTE DATE OF NOTE: MAY 26, 2024@08:48 ENTRY DATE: MAY 26, 2024@08:48:52 AUTHOR: GRIFFIN BLANTON COSIGNER: URGENCY: STATUS: COMPLETED Chief complaint: Patient is a 69 year old . HPI: Pleasant male here to follow up. He does have lower leg pain, h/o pvd and neuropathy. He is following with vascular and neuro. Presently managing pain with naproxen. We did discuss alternating with tylenol. He is followed in the community by Dr. Serra, PCP. Allergies: COVID-19 VACCINE The following VA and Non-VA meds were reconciled with patient. The patient was educated on the use of the medications including indication and side effects. Active and Recently Outpatient Medications (excluding Supplies): Active Non-VA Medications Status 1) Non-VA HYDROCHLOROTHIAZIDE 25MG TAB 25MG BY MOUTH ACTIVE ONCE DAILY 2) Non-VA OMEPRAZOLE CAP,EC BY MOUTH EVERY MORNING 30 ACTIVE MINUTES BEFORE BREAKFAST 3) Non-VA PRAVASTATIN TAB BY MOUTH ACTIVE 4) Non-VA TADALAFIL (2ND LINE PDE-5 INH)*PA-F* TAB BY ACTIVE MOUTH Review of Systems: Constitutional: (-)for Fevers, chills, weakness, nights sweats On examination: 97.4 F [36.3 C] (05/26/2024 08:03)144/108 (05/26/2024 08:03)93 (05/26/2024 08:03)20 (05/26/2024 08:03)8 (05/26/2024 08:03)BMI: 32.6233 lb [105.69 kg] (05/26/2024 08:03) [place] is alert and oriented X3 Neck: supple without masses, trachea midline, ln not palpable, no thyromegaly Cardiovasc: 2plus carotids without bruits, no JVD Heart Reguler rate and rhythm NL S1S2 no S3 or murmur Respiration: Normal respiratory effort, lungs clear ABD: Benign normal active bowel sounds no HSM no rebound or referred pain EXT: no clubbing, edema, or cyanosis All diagnostics from past month were reviewed with patient. Assessment/plan: Active problems - Computerized Problem List is the source for the followin. Peripheral motor neuropathy - SEE ABOVE 2. Colonic polyp - follows with Dr Shelton, due for EGD and colonoscopy 2024 3. GERD - Gastro-Esophageal Reflux Disease ([facility] [id number]) - stable on ppi 4. HTN - Hypertension ([facility] [id number]) - repeat 138/88 Health Care Maintenance: flu+ given in clinic Review of medial record = 5mins Time spent with Patient including shared decision making = 20 mins Post visit documentation = 5mins Total time = 30 mins Follow up visit in 6 mos. Follow Up Colonoscopy: Colonoscopy is due based on information available to this reminder. Patient has arranged or is choosing to arrange a Colonoscopy independent of and w/out assistance from this [place]. HTN Assess for Elevated BP>=140/90: Repeat blood pressure: 138/88 The patient's blood pressure is usually adequately controlled. No medication changes are indicated at this time. Sexual Orientation: The patient thinks of their sexual orientation as: Straight or Heterosexual COVID-19 Immunization: The patient is not likely to benefit from COVID-19 immunization. Reason: allergy Medication Reconciliation: Outpatient: Has the patient been taking medications as documented in the EMLR? YES: The patient has been taking medications as documented in the EMLR. Essential Medication List for Review used to complete this medication reconciliation. INCLUDED IN THIS LIST: Alphabetical list of active outpatient prescriptions dispensed from this VA (local) and dispensed from another VA or DoD facility (remote) as well as inpatient orders (local, pending and active), local clinic medications, locally documented non-VA medications, and local prescriptions that have or been discontinued in the past 90 days. - All changes in medications, including all non-VA/Herbal/OTC medications were entered into CPRS. - If there were any medications the patient should no longer take, they were discontinued. - The patient/caregiver was instructed to update this list, discard old lists, and take this list to the next appointment, whether with a VA or non-VA provider. /fay/ Griffin Blanton DNP, POURER BUGGY LADLE-BC, CNL Primary Care Nurse Practitioner Signed: 05/26/2024 08:53 GRIFFIN BLANTON [place] [facility] [place] [facility] May 26, 2024 08:33 AM PREVENTIVE MEDICINE NURSING NOTE: LOCAL TITLE: CLINICAL REMINDERS/NURSING STANDARD TITLE: PREVENTIVE MEDICINE NURSING NOTE DATE OF NOTE: MAY 26, 2024@08:33 ENTRY DATE: MAY 26, 2024@08:33:21 AUTHOR: EARL CALEROIGNER: URGENCY: STATUS: COMPLETED CLINICAL REMINDERS/NURSING Has ADDENDA Advance Directive Screen MH AD: Patient does not have an Advance Directive completed and is requesting more information. A consult was sent to Social Work Services at this visit so that an appointment can be made with the patient to review the advance directive. The patient received education about Advance Directives and written notification of his/her rights. Homelessness/Food Insecurity Screen: In the past 2 months, have you been living in stable housing that you own, rent, or stay in as part of a household? Yes - Living in stable housing. Are you worried or concerned that in the next 2 months you may NOT have stable housing that you own, rent, or stay in as part of a household? No - Not worried about housing near future The [facility] reports the following: Within the past 12 months, you worried whether your food would run out before you got money to buy more. Never true Within the past 12 months, the food you bought just didn't last and you didn't have money to get more. Never true Depression Screening: Perform PHQ-2 A PHQ-2 screen was performed. The score was 0 which is a negative screen for depression. Over the past two weeks, how often have you been bothered by the following problems? 1. Little interest or pleasure in doing things Not at all 2. Feeling down, depressed, or hopeless Not at all Tobacco Use Screening: The patient is a former tobacco user. The patient quit fifteen or more years ago. Alcohol Use Screen (AUDIT-C): Alcohol Screen: SCREEN FOR ALCOHOL (AUDIT-C) An alcohol screening test (AUDIT-C) was negative (score=1). 1. How often did you have a drink containing alcohol in the past year? Consider a drink to be a 12 ounce can or bottle of regular beer, 8 ounces of malt liquor, a 5 ounce glass of table wine, or a 1.5 ounce shot of liquor (like scotch, gin, or vodka). Monthly or less 2. How many drinks containing alcohol did you have on a typical day when you were drinking in the past year? One or two drinks 3. How often did you have six or more drinks on one occasion in the past year? Never RHS Screen: RHS Screen Session Format: Face to Face Environmental Check Upon inquiry, the individual reports that the environment is safe to proceed. Informed Consent to Screen and Document The individual consents to proceed with screening. The individual consents to documentation of responses. PRIMARY SCREEN: In the past 12 months, how often did a current or former intimate partner (e.g., boyfriend, girlfriend, , , sexual partner): 1. Scream or curse at you Never 2. Insult or talk down to you Never 3. Threaten you with harm Never 4. Physically hurt you Never 5. Force or pressure you to have sexual contact against your will, or when you were unable to say no Never ?? The HITS tool (items 1-4 above) is [place] copyright protected by Berhane Juarez MD, and the user has full rights to use it throughout the [place] system. PRIMARY SCREEN RESULT: The Primary Screen is NEGATIVE. The individual answered never to all forms of IPV above (i.e., answered never to all 5 items) The individual accepts education and/or resources: No EDUCATION: Other: not interested at this time /fay/ [facility] Powerhouse Laborer SURVEILLANCE SYSTEM MONITOR,PRIMARY CARE Signed: 05/26/2024 08:36 05/26/2024 ADDENDUM STATUS: COMPLETED Influenza Immunization: Influenza, High-Dose, Trivalent, Preservative Free (Fluzone-Syringe) Administered: INFLUENZA, HIGH-DOSE, TRIVALENT, PF Date Administered: May 26, 2024 08:30 Green Chain Puller: SANOFI PASTEUR Lot: [id number] Exp Date: Mar 02, 2025 [facility]: [id number] Admin Route/Site: INTRAMUSCULAR/LEFT DELTOID Dosage: 0.5mL Vaccine Information Statement(s): INFLUENZA(FLU) VACC(INACTIVATED OR RECOMBINANT)VIS Apr 08, 2021 ([facility]) Order By: Policy Administered By: Emilie Zhang The Influenza Vaccine Information Statement (VIS) was reviewed with the patient/caregiver which lists the benefits and risks of the vaccine and the risks of not receiving the Influenza vaccine. The patient/caregiver denied any prior severe reaction to this vaccine or its components or a severe allergic reaction, such as anaphylaxis, to any vaccine or any injectable therapy. The patient/caregiver gave verbal consent to receive the vaccine. /fay/ Emilie Zhang MSN RN CNL Primary Care RN Signed: 05/26/2024 08:56 E[facility]L CAL[facility]
--- OUTSIDE RECORDS SUMMARY | 2024-11-03 17:24 | XMS_ITS | Continuity of Care Document ---
Author Organization [facility] Address [address] [place] [address]- Care Team Providers Care Arresting Gear Operator Name Role Phone Maryse MORALES, Heladio Cochran Primary Care Physician Encounter [facility] Date(s): 09/30/24 - 10/30/24 [facility] [address], [place] [id number] Attending Physician: AdmJohnny harrison Admitting Physician: Admtr, Johnny Referring Physician: Admtr, [id number] Encounter Type: Triage [...] Influenza Virus Vaccine (oldterm) 05/14/19 Recorde d [id number] 12y+ bivalent booster vax 06/21/22 Recorded [id number] 12y+ bivalent booster vax 06/16/22 Recorded SARS-CoV-2 [...] 09/03/24 2:23:00 PM EST,Route to Pharmacy Electronically, [facility]/pharmacy #[id number], Partial fill upon patient request if the prescription is for a schedule II opioid drug., 181, cm, 09/03/24 4:29:00 EST, Height, 101, kg, 08/28/2416:05:00 EST, Dry Weight Start Date: 09/03/24 Status: Ordered Quantity: 30.0 Unit: tablet Repeat number: 1 atorvastatin 80 mg oral tablet = 80 mg, By Mouth, Daily at bedtime, # 30 tablet, 0 Refills, Maintenance, 09/03/24 2:23:00 PM EST, Tablet, [facility]/pharmacy #[id number], Partial fill upon patient request if [...] 1 Refills, Maintenance, 09/04/24 7:11:00 AM EST, [facility] STORE [id number], 181, cm, 09/03/24 4:29:00 EST, Height, 101, kg, 08/28/24 16:05:00 EST, Dry Weight Start Date: 09/04/24 Status: Ordered Quantity: 90.0 Unit: capsule Repeat number: 1 metoprolol 25 mg oral tablet 12.5 mg, 0.5, tablet, By Mouth, 2 times a day, # 60 tablet, Refills 1, Tot. Refills 1, Maintenance,09/26/24 9:36:00 AM EST, Route to Pharmacy Electronically, [facility]/pharmacy #[id number], Partial fill upon patient request if [...] 9:36:00 AM EST, Route to Pharmacy Electronically, [facility]/pharmacy #[id number], Partial fill upon patient request if [...] 3 Refills, Maintenance, 05/01/24 9:35:00 AM EDT,Tablet, [facility]/pharmacy #[id number], Partial fill upon patient request if [...] Confirmed Active Venous stasis syndrome Confirmed Active 93443; repeat 2024; repeat 2021 3Endoscopy 2019+ [facility] [...] Team Personnel Name: Margo Esparza RN Position: [facility] SN RN Member Role: Primary Care Nurse Name: Heladio Serra MD Position: [facility] Physician - Primary Care Member Role: PCP Address: [address] [place] [phone]- Telecom: Name: Izabel Stratton RN Position: S RN Member Role: Primary Care Nurse Name: Supriya Roberts RN Position: [facility] RN Member Role: Primary Care Nurse Name: Razia Raymundo RN Position: [facility] RN Member Role: Primary Care Nurse Care Team Related Persons Name: STEVEN LARA Insurance Providers Guarantor name: MONIQUE MARCO [facility] Plan Information #: 1 Payer: [employer] MEDICARE ADV HMO Member Number: NA Policy Number: NA Group Number: NA
--- OUTSIDE RECORDS SUMMARY | 2024-11-03 17:24 | XMS_ITS | Encounter Summary ---
Author Name [facility] [place] Address [address] [place] [address] Care Team Providers Care Computer Architect Name Role Phone GRIFFIN BLANTON Primary Care Provider Unavaillatha [facility] Insurance Providers: All historical and current [...] Name Patient's Relationship to Policy Hernandez [employer] [facility]) MEDICARE ADVANTAGE M[facility] ([facility]) Sep 03, 2022 [id number] [phone] CHAD LARA HN PATIENT [facility] ([facility]) MEDICARE ADVANTAGE [facility] ([facility]) Sep 03, 2018 [id number] CHAD LARA PATIENT Selected Encounter This section includes the information on record at [place] for the Encounter. Date/Time Encounter Type Encounter Description Reason Provider Source Nov 26, 2023 08:30 AM OFFICE O/P EST LOW 20 MIN PRIMARY CARE/MEDICINE ICD-10-CM G62.89 Other specified polyneuropathies EMEKA BLANTON Encounter Template Text not used by [place] Assessments - Encounter Diagnoses This section includes the primary and secondary diagnoses documented for the Encounter. Date/Time Primary/Secondary Diagnosis Diagnosis Name Provider Source Nov 26, 2023 12:46 PM PRIMARY Other specified polyneuropathies [facility]KA BLANTON [facility] [place] [facility] Nov 26, 2023 12:46 PM SECONDARY Essential (primary) hypertension EMEKA BLANTON [facility] Plan of Treatment: Future Appointments (+ 6 months) and Future Tests (+/- 45 days) The Plan of Treatment section includes future care activities for the patient from all [place] [facility]. This section includes future appointments and future orders which are active, pending or scheduled. Future Appointments This section includes appointments that were scheduled to occur 6 months from the date of the Encounter, up to a maximum of 20 appointments. The data comes from all [place] treatment facilities. Appointment Date/Time Appointment Type Appointme nt Facility Name January 24, 2024 08:00 AM AMBULATORY - MEDICINE [place] [facility] [facility] [place] [facility] Feb 25, 2024 08:30 AM AMBULATORY - REHAB MEDICIN [place] [facility] [place] [facility] Mar 28, 2024 09:30 AM AMBULATORY - REHAB MEDICIN E [place] [facility] [place] [place] [facility] Apr 30, 2024 09:00 AM AMBULATORY - REHAB MEDICIN E [place] [facility] [place] [facility] May 26, 2024 08:30 AM AMBULATORY - MEDICINE [facility] Lab Results: +/- 30 days of the encounter This section includes the Chemistry and Hematology Lab Results on record with [place] for the patient. Radiology Reports and Pathology Reports are provided separately, in subsequent sections. Lab Results This section contains the Chemistry/Hematology Results that were resulted 30 days before or 30 daysafter the date of the Encounter. Date/Time Source Result Type Result - Unit Interpretation Reference Range Comment Nov 26, 2023 09:04 AM [facility] CBC Specimen Type: BLOOD No comment entered. Ordering Provider: JAXON BLANTON AM Report Released Date/Time: Nov 26, 2023 08:55 AM Reporting Lab: [facility] [address] [address] Performing Lab: [facility] [address] [address] WBC 7.78 10*3/uL 4.50-11.00 RBC 4.73 10*6/uL 4.23-5.66 HGB 14.4 g/dL 12.8-17 HCT 43.4 39.2-50.4 MCV 91.8 fL 82-99 MCHC 33.2 g/dL 30.8-35.1 PLT 293 10*3/uL 140-360 RDW-CV 12.8 12.0-16.0 MCH 30.4 pg 26.2-32.6 Nov 26, 2023 09:04 AM [facility] VITAMIN B12 Specimen Type: SERUM No comment entered. Ordering Provider: JAXON BLANTON AM Report Released Date/Time: Nov 26, 2023 08:55 AM Reporting Lab: [address] [address] Performing Lab: [address] [address] VITAMIN B12 251 pg/mL 200-900 Nov 26, 2023 09:04 AM [facility] MAGNESIUM Specimen Type: SERUM No comment entered. Ordering Provider: JAXON BLANTON AM Report Released Date/Time: Nov 26, 2023 08:55 AM Reporting Lab: [address] [address] Performing Lab: [address] [address] MAGNESIUM 3.4 mg/dL H 1.6-2.6 Nov 26, 2023 09:04 AM [facility] HEMOGLOBIN A1C PANEL Specimen Type: BLOOD Comment: Values obtained from A1C measurements can vary. For atypical A1C assays, a reported value of 7.0 could actually be between 6.72 and 7.28 if measured by a reference method. A reported value of 9.0 could actually be between 8.73 and 9.27. Ref: http://www.ngs p.org/CAPdata. asp Ordering Provider: JAXON BLANTON AM Report Released Date/Time: Nov 26, 2023 08:55 AM Reporting Lab: [place] [facility] [place] [facility] [address] [address] Performing Lab: [place] [facility] [place] [facility] [address] [address] HEMOGLOBIN A1C 5.5 4.0-5.6 Nov 26, 2023 09:04 AM [facility] [place] [facility] TSH Specimen Type: SERUM No comment entered. Ordering Provider: JAXON BLANTON AM Report Released Date/Time: Nov 26, 2023 08:55 AM Reporting Lab: [facility] [place] [facility] [address] [address] Performing Lab: [facility] [address] [address] TSH 0.55 u[IU]/mL 0.35-5.00 Nov 26, 2023 09:04 AM [facility] BASIC METABOLIC PANEL (non-fasting) Specimen Type: SERUM No comment entered. Ordering Provider: JAXON BLANTON AM Report Released Date/Time: Nov 26, 2023 08:55 AM Reporting Lab: [facility] [place] [facility] [address] [address] Performing Lab: [facility] [address] [address] UREA NITROGEN 18 mg/dL 7-25 GLUCOSE 101 mg/dL H 65-100 SODIUM 140 mmol/L 135-145 POTASSIUM 4.1 mmol/L 3.5-5.0 CHLORIDE 103 mmol/L 100-110 CO2 27 meq/L 20-30 CREATININE, Serum 0.98 mg/dL 0.50-1.40 eGFR(CKD-EPI 2020) 82 mL/min >60 Nov 26, 2023 09:04 AM [facility] LIVER FUNCTION Specimen Type: SERUM No comment entered. Ordering Provider: JAXON BLANTON AM Report Released Date/Time: Nov 26, 2023 08:55 AM Reporting Lab: [facility] [address] [address] Performing Lab: [facility] [address] [address] PROTEIN,TOTAL 7.3 g/dL 6.0-8.3 ALBUMIN 4.1 g/dL 3.5-5.0 ALKALINE PHOSPHATASE 75 U/L 40-150 AST 21 U/L 5-34 ALT 19 U/L BILIRUBIN, TOTAL 0.6 mg/dL 0.2-1.2 Nov 26, 2023 09:04 AM [facility] LIPID PANEL, NON FASTING Specimen Type: SERUM No comment entered. Ordering Provider: JAXON BLANTON AM Report Released Date/Time: Nov 26, 2023 08:55 AM Reporting Lab: [facility] [address] [address] Performing Lab: [address] [address] CHOLESTEROL 137 mg/dL TRIGLYCERIDE 101 mg/dL 0-150 LDL calculated 63 mg/dL 0-129 CHOL/HDL 2.5 HDL CHOLESTEROL 54 mg/dL 40-60 Vital Signs: All taken on the encounter date This section contains inpatient and outpatient Vital Signs collected on the date of the Encounter. Date/Time Temperature Pulse Blood Pressure Respiratory Rate SP02 Pain Height Weight Body Mass Index Source Nov 26, 2023 08:24 AM 97.3 102 130/80 18 97 0 71 234 33 [facility] Social History: Smoking Status (Most current) and Tobacco Use (All prior to encounter date) This section includes the most current, and the historical, smoking and tobacco- related health factors from the [place] facility where the Encounter took place. Current Smoking Status This section includes the most current smoking, or tobacco-related health factor, from the [place] facility where the Encounter took place. Date/Time Current Smoking Status Comment [facility] Mar 19, 2023 04:04 PM VA-TOBACCO FORMER USER [facility] Tobacco Use History This section includes a history of the smoking, or tobacco-related health factors, that were collected on or before the date of the Encounter. The data comes from the [place] facility where the Encounter took place. Date/Time Smoking Status/Tobac co Use Comment Facility Mar 19, 2023 04:04 PM VA-TOBACCO QUIT 15 YRS OR MORE [facility] May 01, 2018 11:03 AM VA-TOBACCO FORMER USER [facility] May 01, 2018 11:03 AM VA-TOBACCO QUIT 15 YRS OR MORE [facility] Nov 29, 2017 11:08 AM QUIT TOBACCO USE > 7 YEARS AGO quit x 40 yrs ( 1 pk a day ) - quit 1972 / restart 1979 for short period [facility] Encounter Notes: All associated encounter notes This section contains the clinical notes associated to the Encounter. Date/Time Encounter Note(s) Provider Source Nov 26, 2023 08:57 AM PRIMARY CARE NURSE PRACTITIONER OUTPATIENT NOTE: LOCAL TITLE: NURSE PRACTITIONER OUTPATIENT NOTE STANDARD TITLE: PRIMARY CARE NURSE PRACTITIONER OUTPATIENT NOTE DATE OF NOTE: NOV 26, 2023@08:57 ENTRY DATE: NOV 26, 2023@08:57:51 AUTHOR: GRIFFIN BLANTON COSIGNER: URGENCY: STATUS: COMPLETED Chief complaint: Patient is a 68 year old . HPI: Pleasant male here to follow up. He also follows with Dr. Serra. Since i last saw him, he had two issues, one a wounds to his left lateral foot and then he developed an open wound left lower leg. He was seen by vascular and dx with PVD with a planned surgical intervention. Allergies: Patient has answered NKA The following VA and Non-VA meds were reconciled with patient. The patient was educated on the use of the medications including indication and side effects. Active and Recently Outpatient Medications (excluding Supplies): Active Non-VA Medications Status = 1) Non-VA AMLODIPINE BESYLATE 10MG TAB 10MG BY MOUTH ACTIVE ONCE DAILY 2) Non-VA LISINOPRIL TAB BY MOUTH ACTIVE 3) Non-VA OMEPRAZOLE CAP,EC BY MOUTH EVERY MORNING 30 ACTIVE MINUTES BEFORE BREAKFAST 4) Non-VA PRAVASTATIN TAB BY MOUTH ACTIVE 5) Non-VA TADALAFIL (2ND LINE PDE-5 INH)*PA-F* TAB BY ACTIVE MOUTH Review of Systems: Constitutional: (-)for Fevers, chills, weakness, nights sweats On examination: 97.3 F [36.3 C] (11/26/2023 08:24)130/80 (11/26/2023 08:24)102 (11/26/2023 08:24)18 (11/26/2023 08:24)0 (11/26/2023 08:24)BMI: 32.7234 lb [106.14 kg] (11/26/2023 08:24) Ramona is alert and oriented X3 Cardiovasc: 2plus carotids without bruits, no JVD Heart Reguler rate and rhythm NL S1S2 no S3 or murmur Respiration: Normal respiratory effort, lungs clear ABD: Benign normal active bowel sounds no HSM no rebound or referred pain EXT: no clubbing, edema, or cyanosis Neuro:grossly non-focal reflexes symmetric bilat, toes downgoing, CN 2 to 10 intact Assessment/plan: Active problems - Computerized Problem List is the source for the followin. 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 2. HTN - Hypertension ([facility] [id number]) - well controlled Review of medial record = 5mins Time spent with Patient including shared decision making = 20 mins Post visit documentation = 5mins Total time = 30 mins Follow up visit in 6 mos. Alert to PACT RN - Labs as necessary to address clinical status. Assess Statin Use - Lipids (CVD/DM): The patient is still taking the NON-VA statin medication as documented. PTSD Screening: PC-PTSD-5 A PTSD screening test (PC-PTSD-5) was negative (score=0). IN THE PAST MONTH, have you ever had any experience that was so frightening, horrible or traumatic. For example: A serious accident or fire a physical or sexual assault or abuse An earthquake or flood A war Seeing someone be killed or seriously injured Having a loved one through homicide or suicide 1. Have you ever experienced this kind of event? YES 2. Had nightmares about the event(s) or thought about the event(s) when you did not want to? NO 3. Tried hard not to think about the event(s) or went out of your way to avoid situations that reminded you of the event(s)? NO 4. Been constantly on guard, watchful, or easily startled? NO 5. Sargent numb or detached from people, activities, or your surroundings? NO 6. Sargent guilty or unable to stop blaming yourself or others for the event(s) or any problems the event(s) may have caused? NO Medication Reconciliation: Outpatient: Has the patient been taking medications as documented in the EMLR? YES: The patient has been taking medications as documented in the EMLR. Essential Medication List for Review used to complete this medication reconciliation. INCLUDED IN THIS LIST: Alphabetical list of active outpatient prescriptions dispensed from this [place] (local) and dispensed from another [place] or [facility] facility (remote) as well as inpatient orders [...] or non-VA provider. /fay/ Griffin Blanton DNP, COMMUNICATIONS PLANNER-BC, CNL Primary Care Nurse Practitioner Signed: 11/26/2023 12:46 GRIFFIN BLANTON [place] [facility]
--- OUTSIDE RECORDS SUMMARY | 2024-11-03 17:24 | XMS_ITS | Encounter Summary ---
Author Name [place] Organization [place] Address [address] [place] [address] Care Team Providers Care Branch Lending Manager Name Role Phone WARREN BEAN Primary Care Provider Unavail ble Insurance Providers: All historical and current Section Date Range: From patient's date of to the date document was created. This section includes the names of all active insurance providers for the patient. Insurance Provider Type of Coverage Plan Name Start of Policy Coverage End of Policy Coverage Group Number Member ID Insurance Provider's Telephone Number Policy Hernandez's Name Patient's Relationship to Policy Hernandez [facility] ([facility]) MEDICARE [place]ANTAGE [facility] Sep 03, 2022 [id number] [phone] CHAD LARA PATIENT [facility] ([facility]) MEDICARE ADVANTAGE [facility] ([facility]) Sep 03, 2018 [id number] [phone] CHAD LARA PATIENT Selected Encounter This section includes the information on record at [place] for the Encounter. Date/Time Encounter Type Encounter Description Reason Provider Source Oct 17, 2024 10:23 AM Outpatient Encounter PRIMARY CARE/MEDICINE WARREN BEAN Encounter Template Text not used by [place] Plan of Treatment: Future Appointments (+ 6 months) and Future Tests (+/- 45 days) The Plan of Treatment section includes future care activities for the patient from all [place] treatmentfacilities. This section includes future appointments and future orders which are active, pending or scheduled. Future Appointments This section includes appointments that were scheduled to occur 6 months from the date of the Encounter, up to a maximum of 20 appointments. The data comes from all [facility]. Appointment Date/Time Appointment Type Appointme nt Facility Name Nov 17, 2024 08:30 AM AMBULATORY - MEDICINE [facility] Active, Pending, and Scheduled Orders This section includes a listing of several types of active, pending, and scheduled orders, including clinic medications orders, diagnostic test orders, procedure orders and consult orders; where the start date of the order is 45 days before the date of the Encounter or 45 days after the date of theEncounter. The data comes from all [facility]. Test Date/Time Test Type Test Details Facility Name Sep 17, 2024 12:00 AM Laboratory - Chemi stry Order OCCULT BLOOD FIT X1 SCREEN (MFP ONLY) STOOL FECES SP [facility] Social History: Smoking Status (Most current) and Tobacco Use (All prior to encounter date) This section includes the most current, and the historical, smoking and tobacco- related health factors from the [place] facility where the Encounter took place. Current Smoking Status This section includes the most current smoking, or tobacco-related health factor, from the [place] facility where the Encounter took place. Date/Time Current Smoking Status Comment [facility] it May 26, 2024 08:30 AM VA-TOBACCO FORMER USER [facility] Tobacco Use History This section includes a history of the smoking, or tobacco-related health factors, that were collected on or before the date of the Encounter. The data comes from the [place] facility where the Encounter took place. Date/Time Smoking Status/Tobac co Use Comment Facility May 26, 2024 08:30 AM VA-TOBACCO QUIT 15 YRS OR MORE [facility] Mar 19, 2023 04:04 PM VA-TOBACCO FOR[facility] Mar 19, 2023 04:04 PM VA-TOBACCO QUIT [facility] YRS OR [facility] May 01, 2018 11:03 AM VA-TOBACCO FOR[facility] May 01, 2018 11:03 AM [place]-TOBACCO QUIT 15 YRS OR MORE [facility] Nov 29, 2017 11:08 AM QUIT TOBACCO USE > 7 YEARS AGO quit x 40 yrs ( 1 pk a day ) - quit 1972 / restart 1979 for short period [facility] Encounter Notes: All associated encounter notes This section contains the clinical notes associated to the Encounter. Date/Time Encounter Note(s) Provider Source Oct 17, 2024 10:23 AM NURSING NOTE: LOCAL TITLE: NURSING/TELEPHONE STANDARD TITLE: NURSING NOTE DATE OF NOTE: OCT 17, 2024@10:23 ENTRY DATE: OCT 17, 2024@10:23:39 AUTHOR: EARL CALERO EXP COSIGNER: URGENCY: STATUS: COMPLETED HT called and spoke with vet reminding vet that was issued a stool kit and team is awaiting the return of stool kit for testing. Vet stated that he would complete sample and mail in when he return from out of town trip. /es/ Earl Calero, Health Sewage Plant Attendant PASSENGER AGENT,PRIMARY CARE Signed: 10/17/2024 10:28 EARL ACLERO [facility]
--- OUTSIDE RECORDS SUMMARY | 2024-11-03 17:24 | XMS_ITS | Continuity of Care Document ---
Author Organization [facility] Rambo chong Address [address] [place] [phone]- Care Team Providers Care Patent Prosecution Attorney Name Role Phone Heladio Serra MD Primary Care Physician Encounter [facility] Date(s): 09/15/24 - 10/15/24 [facility] [address] [place] [address] Drive [address] [place], [place] [address] Encounter Type: Triage Allergies, Adverse Reactions, Alerts [...] Influenza Virus Vaccine (oldterm) 05/14/19 Recorde d [id number] 12y+ bivalent booster vax 06/21/22 Recorded [id number] 12y+ bivalent booster vax 06/16/22 Recorded SARS-CoV-2 [...] 09/03/24 2:23:00 PM EST,Route to Pharmacy Electronically, [facility]/pharmacy #[id number], Partial fill upon patient request if [...] Refills, Maintenance, 09/03/24 2:23:00 PM EST, Tablet, [facility]/pharmacy #[id number], Partial fill upon patient request if [...] 1 Refills, Maintenance, 09/04/24 7:11:00 AM EST, [facility] STORE [id number], 181, cm, 09/03/24 4:29:00 EST, Height, 101, kg, 08/28/24 16:05:00 EST, Dry Weight Start Date: 09/04/24 Status: Ordered Quantity: 90.0 Unit: capsule Repeat number: 1 metoprolol 25 mg oral tablet 12.5 mg, 0.5, tablet, By Mouth, 2 times a day, # 60 tablet, Refills 1, Tot. Refills 1, Maintenance,09/26/24 9:36:00 AM EST, Route to Pharmacy Electronically, [facility]/pharmacy #[id number], Partial fill upon patient request if [...] 9:36:00 AM EST, Route to Pharmacy Electronically, [facility]/pharmacy #[id number], Partial fill upon patient request if [...] 3 Refills, Maintenance, 05/01/24 9:35:00 AM EDT,Tablet, [facility]/pharmacy #[id number], Partial fill upon patient request if the [...] Confirmed Active Venous stasis syndrome Confirmed Active 15471; repeat 2024 68572; repeat 2021 3Endoscopy 2019+ Cordova's esophagus, repeat [...] Team Personnel Name: Margo Esparza RN Position: [facility] RN Member Role: Primary Care Nurse Name: Heladio Serra MD Position: [facility] Physician - Primary Care Member Role: PCP Address: [address] [place] [phone] Telecom: Name: Izabel Stratton RN Position: [facility] RN Member Role: Primary Care Nurse Name: Supriya Roberts RN Position: [facility] RN Member Role: Primary Care Nurse Name: Razia Raymundo RN Position: [facility] RN Member Role: Primary Care Nurse Care Team Related Persons Name: STEVEN LARA Insurance Providers Guarantor name: MONIQUE LARA [facility] Information #: 1 Payer: [employer] MEDICARE ADV HMO Member Number: NA Policy Number: NA Group Number: NA
--- OUTSIDE RECORDS SUMMARY | 2024-11-03 17:24 | XMS_ITS | Patient Health Record ---
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 . . 2-3x/week for 3- 4 weeks Active Pravastatin Sodium 80 mg Active NexIUM 40 mg Active Immunizations Vaccine Route Administration Date Status Comme nts COVID-19 Moderna Vaccine Unknown 09/03/2021 Administere d 12/2020 Unsure Dates Pneumococcal Unknown 05/16/2019 Administered Social History Tobacco Use: Social History Observation Description Date Details (start date - stop date) Never Smoker NA - NA Tobacco Use/Smoking Question Answer Notes Are you a: nonsmoker Additional Findings: Tobacco Non-User Current no n-smoker Alcohol Screen Question Answer Notes Did you have a drink containing alcohol in the p ast year? Yes Points 0 Interpretation Negative Tobacco use other than smoking: Question Answer Notes Are you an other tobacco user? No Problems Problem Type SNOMED Code ICD Code Onset Dates Problem Status W/U Status Risk Notes Problem Localized, primary osteoarthritis of the ankle and/or foot (106918090) Primary osteoarthrit is, left ankle and foot (M19.072) Active confirmed Problem Acquired hammer toe of right foot (6179020085192798) Other hammer toe(s) (acquired), right foot (M20.41) Active confirmed Problem Acquired hammer toe of left foot (8283597704246397) Other hammer toe(s) (acquired), left foot (M20.42) Active confirmed Vital Signs Blood pressure diastolic 80 mm Hg 04/24/2024 Height 6 ft in 04/24/2024 Blood pressure systolic 120 mm Hg 04/24/2024 Weight 220 lbs 04/24/2024 BMI 29.83 kg/m2 04/24/2024 Encounters Encounter Location Date Provider Diagnosis [facility] [address] [address] 11/06/2023 Rashawn Domingo Other viral warts B07.8 ; Pain in left foot M79.672 ; Other hammer toe(s) (acquired), left foot M20.42 ; Other hammer toe(s) (acquired), right foot M20.41 ; Tailor's bunionette, 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 ; Eccrine poroma of foot, 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 and Localized edema R60.[address] [facility] [address] 01/16/2024 Rashawn Domingo Other viral warts B07.8 ; Pain in left foot M79.672 ; Other hammer toe(s) (acquired), left foot M20.42 ; Other hammer toe(s) (acquired), right foot M20.41 ; Tailor's bunionette, 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 ; Eccrine poroma of foot, 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 and Localized edema R60.[address] [address] 03/13/2024 Rashawn Domingo Other viral warts B07.8 ; Pain in left foot M79.672 ; Other hammer toe(s) (acquired), left foot M20.42 ; Other hammer toe(s) (acquired), right foot M20.41 ; Tailor's bunionette, 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 ; Eccrine poroma of foot, 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 and Localized edema R60.[address] [address] 04/24/2024 Rashawn Domingo Other viral warts B07.8 ; Pain in left foot M79.672 ; Other hammer toe(s) (acquired), left foot M20.42 ; Other hammer toe(s) (acquired), right foot M20.41 ; Tailor's bunionette, 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 ; Eccrine poroma of foot, 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 and Localized edema R60.[address] [address] 01/16/2024 Rashawn Domingo [address] [address] 02/12/2024 Rashawn Domingo Assessments Encounter Date Diagnosis (ICD Code) Assessment Notes Treatment Notes Treatment Clinical Notes Section Notes 11/06/2023 Other viral warts (ICD-10 - B07.8) 11/06/2023 Pain in left foot (ICD-10 - M79.672) 01/16/2024 Other viral warts (ICD-10 - B07.8) 01/16/2024 Pain in left foot (ICD-10 - M79.672) 03/13/2024 Other viral warts (ICD-10 - B07.8) 03/13/2024 Pain in left foot (ICD-10 - M79.672) 04/24/2024 Other viral warts (ICD-10 - B07.8) 04/24/2024 Pain in left foot (ICD-10 - M79.672) 04/24/2024 Other hammer toe(s) (acquired), left foot (ICD-10 - M20.42) 03/13/2024 Other hammer toe(s) (acquired), left foot (ICD-10 - M20.42) 01/16/2024 Other hammer toe(s) (acquired), left foot (ICD-10 - M20.42) 11/06/2023 Other hammer toe(s) (acquired), left foot (ICD-10 - M20.42) 11/06/2023 Other hammer toe(s) (acquired), right foot (ICD-10 - M20.41) 01/16/2024 Other hammer toe(s) (acquired), right foot (ICD-10 - M20.41) 03/13/2024 Other hammer toe(s) (acquired), right foot (ICD-10 - M20.41) 04/24/2024 Other hammer toe(s) (acquired), right foot (ICD-10 - M20.41) 03/13/2024 Tailor's bunionette, 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 - M21.622) 04/24/2024 Tailor's bunionette, 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 - M21.622) 01/16/2024 Tailor's bunionette, 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 - M21.622) 11/06/2023 Tailor's bunionette, 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 - M21.622) 11/06/2023 Eccrine poroma of foot, 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) 01/16/2024 Eccrine poroma of foot, 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) 04/24/2024 Eccrine poroma of foot, 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) 03/13/2024 Eccrine poroma of foot, 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) 04/24/2024 Localized edema (ICD-10 - R60.0) 03/13/2024 Localized edema (ICD-10 - R60.0) 11/06/2023 Localized edema (ICD-10 - R60.0) 01/16/2024 Localized edema (ICD-10 - R60.0) Plan Of Treatment Pending Test Test Name Order Date X ray : Foot, left 2V 05/02/2013 X ray : Foot, right 2V 05/02/2013 X ray : Foot, left 3V 05/03/2022 X ray : Foot, left 3V 11/06/2023 X ray : Foot, right 3V 05/03/2022 Next Appt Details Provider Name:Shawanda azul, 12/02/2024 03:00:00 PM, [address] [place] [address], [phone], Insurance Providers Payer Name Payer Address Payer Phone Subscriber Number Group Number Insured Name Patient Relationship to Insured Coverage Start Date Coverage End Date [employer] Medicare Open [address] [place] [id number] Emory Vega Self - patient is the insured Medical (General) History Medical History History ICD Code Arthritis chicken pox hypercholesterolemia hypertension joint implants/screws measles mumps reflux Surgical History Surgery Date(Month/Year) rotator cuff tear repair 08/22/2000 hip replacement rt and left 02/29/04-2014 hernia 06/22/12
--- OUTSIDE RECORDS SUMMARY | 2024-11-03 17:24 | XMS_ITS | Continuity of Care Document ---
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 Name Role Phone Maryse MORALES, Heladio Cochran Primary Care Physician Encounter [facility] Date(s): 08/31/24 - 10/30/24 [facility] [address] [place] [address] Attending Physician: Scott Alexander MD Referring Physician: Leatha Valenzuela MD Encounter Type: Pre Office Visit Allergies, Adverse Reactions, Alerts No Known Allergies [...] Influenza Virus Vaccine (oldterm) 05/14/19 Recorde d [id number] 12y+ bivalent booster vax 06/21/22 Recorded [id number] 12y+ bivalent booster vax 06/16/22 Recorded SARS-CoV-2 [...] 09/03/24 2:23:00 PM EST,Route to Pharmacy Electronically, [facility]/pharmacy #[id number], Partial fill upon patient [...] Refills, Maintenance, 09/03/24 2:23:00 PM EST, Tablet, [facility]/pharmacy #[id number], Partial fill upon patient [...] 1 Refills, Maintenance, 09/04/24 7:11:00 AM EST, [facility] [address], 181, cm, 09/03/24 4:29:00 EST, Height, 101, kg, 08/28/24 16:05:00 EST, Dry Weight Start Date: 09/04/24 Status: Ordered Quantity: 90.0 Unit: capsule Repeat number: 1 metoprolol 25 mg oral tablet 12.5 mg, 0.5, tablet, By Mouth, 2 times a day, # 60 tablet, Refills 1, Tot. Refills 1, Maintenance,09/26/24 9:36:00 AM EST, Route to Pharmacy Electronically, [facility]/pharmacy #[id number], Partial fill upon patient [...] 9:36:00 AM EST, Route to Pharmacy Electronically, [facility]/pharmacy #[id number], Partial fill upon patient [...] 3 Refills, Maintenance, 05/01/24 9:35:00 AM EDT,Tablet, [facility]/pharmacy #[id number], Partial fill upon patient request if the [...] Confirmed Active Venous stasis syndrome Confirmed Active 46985; repeat 2024; repeat 2021 3Endoscopy 2019+ [facility] [...] on: 07/12/16 Sex Sex Representation Male (finding) History and physical note * Event Display: History and Physical Hospital Authored Date: Patient Care team information Care Team Personnel Name: Margo Esparza RN Position: [facility] SN RN Member Role: Primary Care Nurse Name: Heladio Serra MD Position: [facility] Physician - Primary Care Member Role: PCP Address: [address] [place] [address]- Telecom: Name: Izabel Stratton RN Position: [facility] RN Member Role: Primary Care Nurse Name: Supriya Roberts RN Position: [facility] RN Member Role: Primary Care Nurse Name: Razia Raymundo RN Position: [facility] RN Member Role: Primary Care Nurse Care Team Related Persons Name: STEVEN LARA Insurance Providers Guarantor name: MONIQUE LARA Health Plan Information #: 1 Payer: [employer] Member Number: [id number] Policy Number: NA Group Number: [id number] [employer] Plan Information #: 2 Payer: [employer] H[employer] Member Number: [id number] Policy Number: NA Group Number: [id number]
--- OUTSIDE RECORDS SUMMARY | 2024-11-03 17:25 | XMS_ITS | Continuity of Care Document ---
Author Name [facility] Organization [facility] Care Team Providers Care Associate Professor Of Musicology Name Role Phone [facility] Unavailable Unavailable Problems Combined list of problems from Department of Defense and Veterans Affairs facilities. It does not include entries that were removed or entered in error. Problem Status Onset Date Problem Type Date of Resolution Comments Source Osteoarthritis (SCT 140532462) Active 014 Condition [facility] Tinnitus ([facility] [id number]) Active 014 Condition [facility] GERD - Gastro-Esophageal Reflux Disease ([facility] [id number]) Active 006 Condition January 01, 2018 Entered By: KOTA NULL Comment: confirmed GERD w Cordova's esophogus per notes from [facility]. 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 [facility] CAD - Coronary Artery Disease ([facility] [id number]) Active Condition January Entered By: GIOVANNI BLANCO Comment: Nuclear ETT 11/25/2013 Normal EF 67% [facility] Carotid artery stenosis Active Condition [facility] Colonic polyp Active Condition January Entered By: GIOVANNI BLANCO Comment: 2007 and 2013 repeat 2018 [facility] Exposure to potentially hazardous substance Active Condition Dec 31, 2022 Entered By: DELMY GARBER Comment: [facility] ([id number]) GERD - Gastro-Esophageal Reflux Disease ([facility] [id number]) Active Condition [facility] History of surgery Active Condition ar 2017 Entered By: KOTA NULL Comment: Orhto - bilateral hips ( [facility]/ [facility])- New eng ortho / right shoulder rotator cuffMar 2017 Entered By: KOTA NULL Comment: Hernia - right groin - [facility] - 2017 Entered By: KOTA NULL Comment: 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 [facility] HTN - Hypertension (SCT 18143120) Active Condition Nov 29, 2017 Entered By: KOTA NULL Comment: (awaiting DR FERGUSON NOTES TO CONFIRM) [facility] Hypercholesterolemia (SCT 96610326) Active Condition [facility] Immunization status Active Condition May 08, 2018 Entered By: KOTA NULL Comment: completed ZOSTER RECOMBINANT #2 03/2018Sep 2017 Entered By: KOTA NULL Comment: Hept c ( -) 04/2018 [facility] Obesity Active Condition [facility] Obesity (SCT 720060705) Active Condition [facility] Peripheral motor neuropathy Active Condition [facility] Under care of multiple providers Active Condition Nov 29, 2017 Entered By: KOTA NULL Comment: [facility] - minimal careNov 29, 2017 Entered By: KOTA NULL Comment: DR FERGUSON ( [facility] [place])Nov 29, 2017 Entered By: KOTA NULL Comment: EYE- [facility] ( yrl exam)- cataract - bothNov 29, 2017 Entered By: KOTA NULL Comment: GI ( GERD/ Cordova esophagus)Nov 29, 2017 Entered By: KOTA NULL Comment: [facility] presbyopia Active Condition DoD strabismus Active Condition DoD astigmatism regular Active Condition Do D refractive error - hypermetropia Active Condition DoD Diagnosis: ICD-10-CM Z46.1 Encounter for fitting and adjustment of hearing aid Active Diagnosis [facility] Diagnosis: ICD-10-CM G62.89 Other specified polyneuropathies Active Diagnosis [facility] Diagnosis: ICD-10-CM Z23 Encounter for immunization Active Diagnosis [facility] Medications Combined list of outpatient medications from Department of Defense and Veterans Affairs facilities.Medications provided include 1) outpatient medications from the last 15 months, and 2) patient-reported medications. Medication Details Route Status Patient Instructions Prescription Expires Prescription Number Last Dispense Date Ordering Provider Order Date Order Qty Source HYDROCHLORO THIAZIDE 25MG TAB TAKE ONE TABLET BY MOUTH ONCE DAILY ORAL ACTIVE WARREN BEAN 2023 [facility] OMEPRAZOLE CAP,EC TAKE BY MOUTH EVERY MORNING 30 MINUTES BEFORE BREAKFAS T ORAL ACTIVE PETROFF,S [facility] 2017 [facility] PRAVASTATIN TAB TAKE BY MOUTH ORAL ACTIVE PETROFF,S [facility] 2017 [facility] TADALAFIL (2ND LINE PDE-5 INH)*PA-F* TAB TAKE BY MOUTH PRN ORAL ACTIVE KAVYA GUADARRAMA 2022 [facility] Allergies, Adverse Reactions, Alerts Combined list of allergies from Department of Defense and Veterans Affairs facilities. It does not include entries that were removed or entered in error. Substance Category Reaction Severity Reaction type Status Date Reported Comments Source COVID-19 VACCINE Propensity to adverse reactions to drug (finding) Eruption active 4 [facility] Immunizations Combined list of available immunizations from the Department of Defense and Veterans Affairs facilities. Immunization Series Date Given Administered By Site Reaction Lot Number CVX Code Drug Web Pressman Status Comments Source INFLUENZA, HIGH-DOSE, TRIVALENT, PF 2023 BEAU ZHANG LEFT DELTO ID [id number] 135 complet ed [facility] INFLUENZA, HIGH-DOSE, QUADRIVALENT 2022 ADIEL LEDEZMA RIGHT DELTO ID [id number] 197 complet ed [facility] COVID-19 (MODERNA), MRNA, LNP-S, PF, 100 MCG/0.5 ML DOSE 2 2020 207 complet ed MOD; [id number]; 1 [facility] COVID-19 (MODERNA), MRNA, LNP-S, PF, 100 MCG/0.5 ML DOSE 1 2020 207 complet ed MOD; [id number]; 1 [facility] INFLUENZA, INJECTABLE, MDCK, PRESERVATIVE FREE, QUADRIVALENT 2018 171 complet ed Partner: [facility]. Administe red by: MONIQUE BUTTERFIELD (XDV=[phone] [id number]). Partner 7 Lot#: [id number] Mfr: SEQIRUS; Dosage: 0.5 [facility] INFLUENZA, SEASONAL, INJECTABLE 2017 141 complet ed [facility] ZOSTER RECOMBINANT 2 2017 187 complet ed [facility] ZOSTER RECOMBINANT 1 2017 187 complet ed [facility] INFLUENZA, SEASONAL, INJECTABLE 2016 141 complet ed [facility] TDAP 2013 115 complet ed [facility] Influenza, seasonal, injectable, preservative free 3 2010 Unknown, Provider 140 [employer] Brigido. (NOV) complet ed Influenza , seasonal, injectabl e, preservat romi free [facility] influenza virus vaccine, split virus (incl. purified surface antigen)-reti red CODE 1 2009 Unknown, Provider [id number] 15 [employer] Brigido. (NOV) complet ed influenza virus vaccine, split virus (incl. purified surface antigen)- retired CODE DoD typhoid Vi capsular polysaccharid e vaccine 1 2009 Unknown, Provider [id number] Sanofi Pasteur ([facility]) complet ed typhoid Vi capsular polysacch aride vaccine DoD Novel influenza-H1N 1-09, injectable 1 2008 Unknown, Provider [id number] 127 [employer] [place]. (NOV) complet ed Novel influenza -G2E3-22, injectabl e DoD influenza virus vaccine, split virus (incl. purified surface antigen)-reti red CODE 1 2008 Unknown, Provider [id number] 15 Sanofi Pasteur ([facility]) complet ed influenza virus vaccine, split virus (incl. purified surface antigen)- retired CODE DoD influenza virus vaccine, split virus (incl. purified surface antigen)-reti red CODE 1 2007 Unknown, Provider [id number] 15 [place] ([facility]) complet ed influenza virus vaccine, split virus (incl. purified surface antigen)- retired CODE DoD typhoid Vi capsular polysaccharid e vaccine 1 2007 Unknown, Provider [id number] 101 [facility] ([facility]) complet ed typhoid Vi capsular polysacch aride vaccine DoD influenza virus vaccine, split virus (incl. purified surface antigen)-reti red CODE 1 2006 Unknown, Provider [id number] 15 [facility] ([facility]) complet ed influenza virus vaccine, split virus (incl. purified surface antigen)- retired CODE DoD tetanus toxoid, reduced diphtheria toxoid, and acellular pertu is vaccine, adsorbed 1 2006 Unknown, Provider [id number] 115 Sanofi Pasteur ([facility]) complet ed tetanus toxoid, reduced diphtheri a toxoid, and acellular pertussis vaccine, adsorbed DoD influenza virus vaccine, split virus (incl. purified surface antigen)-reti red CODE 1 2005 [id number] 15 Sanofi Pasteur ([facility]) complet ed influenza virus vaccine, split virus (incl. purified surface antigen)- retired CODE DoD typhoid vaccine, parenteral, other than acetone-kille d, dried 1 2005 [id number] 41 Sanofi Pasteur ([facility]) complet ed typhoid vaccine, parentera l, other than acetone-k illed, dried DoD influenza virus vaccine, split virus (incl. purified surface antigen)-reti red CODE 1 2005 15 Transcribed (TRS) complet ed influenza virus vaccine, split virus (incl. purified surface antigen)- retired CODE DoD influenza virus vaccine, whole virus 0 2004 [id number] 16 Patrizia (WAL) complet ed influenza virus vaccine, whole virus DoD typhoid vaccine, parenteral, other than acetone-kille d, dried 0 2003 [id number] 41 Sanofi Pasteur ([facility]) complet ed typhoid vaccine, parentera l, other than acetone-k illed, dried DoD tetanus and diphtheria toxoids, adsorbed, preservative free, for adult use (2 Lf of tetanus toxoid and 2 Lf of diphtheria toxoid) 0 2003 [id number] Sanofi Pasteur ([facility]) complet ed tetanus and diphtheri a toxoids, adsorbed, preservat romi free, for adult use (2 Lf of tetanus toxoid and 2 Lf of diphtheri a toxoid) DoD tuberculin skin test; purified protein derivative solution, intradermal 1 2003 Unknown, Provider 96 [facility] (TRS) complet ed tuberculi n skin test; purified protein derivativ e solution, intraderm al DoD influenza virus vaccine, whole virus 0 2002 [id number] 16 [employer] (PWJ) complet ed influenza virus vaccine, whole virus DoD tuberculin skin test; purified protein derivative solution, intradermal 1 2002 Unknown, Provider [id number] 96 [facility] ([facility]) complet ed tuberculi n skin test; purified protein derivativ e solution, intraderm al DoD influenza virus vaccine, whole virus 0 2001 [id number] 16 [facility] ([facility]) complet ed influenza virus vaccine, whole virus DoD meningococcal polysaccharid e vaccine (MPSV4) 0 2001 [id number] 32 Sanofi Pasteur ([facility]) complet ed meningoco ccal polysacch aride vaccine (MPSV4) DoD tuberculin skin test; purified protein derivative solution, intradermal 1 2001 Unknown, Provider [id number] 96 [facility] ([facility]) complet ed tuberculi n skin test; purified protein derivativ e solution, intraderm al DoD influenza virus vaccine, whole virus 0 2000 [id number] 16 Sanofi Pasteur ([facility]) complet ed influenza virus vaccine, whole virus DoD typhoid vaccine, parenteral, other than acetone-kille d, dried 0 2000 [id number] 41 Sanofi Pasteur ([facility]) complet ed typhoid vaccine, parentera l, other than acetone-k illed, dried DoD influenza virus vaccine, whole virus 0 2000 [id number] 16 [facility] ([facility]) complet ed influenza virus vaccine, whole virus DoD tuberculin skin test; purified protein derivative solution, intradermal 1 2000 Unknown, Provider 96 () complet ed tuberculi n skin test; purified protein derivativ e solution, intraderm al DoD tuberculin skin test; purified protein derivative solution, intradermal 1 1999 Unknown, Provider [id number] 96 [facility] ([facility]) complet ed tuberculi n skin test; purified protein derivativ e solution, intraderm al DoD influenza virus vaccine, whole virus 0 [id number] 16 [employer] (WAL) complet ed influenza virus vaccine, whole virus DoD tuberculin skin test; purified protein derivative solution, intradermal 1 1998 Unknown, Provider [id number] 96 [facility] ([facility]) complet ed tuberculi n skin test; purified protein derivativ e solution, intraderm al DoD influenza virus vaccine, whole virus 0 [id number] 16 [facility] ([facility]) complet ed influenza virus vaccine, whole virus DoD hepatitis A vaccine, adult dosage 2 1997 [id number] 52 [facility] (SK) complet ed hepatitis A vaccine, adult dosage DoD influenza virus vaccine, whole virus 0 [id number] 16 [employer] (Inactive) ([place]) complet ed influenza virus vaccine, whole virus DoD meningococcal polysaccharid e vaccine (MPSV4) 0 1996 [id number] 32 [place] (CON) complet ed meningoco ccal polysacch aride vaccine (MPSV4) DoD typhoid vaccine, parenteral, acetone-kille d, dried (U.S. ) 4 1996 53 () complet ed typhoid vaccine, parentera l, acetone-k illed, dried ([place].S. ) DoD hepatitis A vaccine, adult dosage 1 1996 [id number] 52 [facility] (SK) complet ed hepatitis A vaccine, adult dosage DoD influenza virus vaccine, whole virus 0 1995 16 () complet ed influenza virus vaccine, whole virus DoD meningococcal polysaccharid e vaccine (MPSV4) 0 [id number] 32 [employer] (Inactive) ([place]) complet ed meningoco ccal polysacch aride vaccine (MPSV4) DoD hepatitis B vaccine, adult dosage 3 1993 43 () complet ed hepatitis B vaccine, adult dosage DoD yellow fever vaccine 0 1993 [id number] 37 [place] (CON) complet ed yellow fever vaccine DoD typhoid vaccine, parenteral, acetone-kille d, dried ([place].S. ) 3 1993 [id number] 53 [employer] (SKB) complet ed typhoid vaccine, parentera l, acetone-k illed, dried ([place].S. ) DoD tetanus and diphtheria toxoids, adsorbed, preservative free, for adult use (2 Lf of tetanus toxoid and 2 Lf of diphtheria toxoid) 0 1993 09 () complet ed tetanus and diphtheri a toxoids, adsorbed, preservat romi free, for adult use (2 Lf of tetanus toxoid and 2 Lf of diphtheri a toxoid) DoD trivalent poliovirus vaccine, live, oral 0 1976 02 () complet ed trivalent polioviru s vaccine, live, oral DoD Results Combined list of recent chemistry, hematology and other laboratory results from Department of Defense and Veterans Affairs, ranging from 15 months to all on record, depending upon the facility. Order Name Results Value Reference Range Date Interpretation Specimen Comments Source OCCULT BLOOD FIT X1 SCREEN (MFP ONLY) HEMOGLOBIN .GASTROINT ESTINAL.LO WER [PRESENCE] IN STOOL BY IMMUNOASSA Y NEGATIVE 10/21 Specimen Type: FECES No comment entered. Ordering Provider: TREVOR BEAN Report Released Date/Time: Sep 17, 2024 12:18 PM Reporting Lab: [facility] [place] [facility] [address] [facility] [address] Performing Lab: [facility]THCHUSE[address] [address] [facility] CBC LEUKOCYTES [#/VOLUME] IN BLOOD BY AUTOMATED COUNT 7.83 10*3/uL 4.50 - 11.00 05/26 Specimen Type: BLOOD No comment entered. Ordering Provider: TREVOR BEAN Report Released Date/Time: May 15, 2024 12:51 PM Reporting Lab: [facility] [place] [facility] [address] [facility] [address] Performing Lab: [facility] [address] [facility] [address] [facility] CBC ERYTHROCYT ES [#/VOLUME] IN BLOOD BY AUTOMATED COUNT 4.67 10*6/uL 4.23 - 5.66 05/26 Specimen Type: BLOOD No comment entered. Ordering Provider: TREVOR BEAN Report Released Date/Time: May 15, 2024 12:51 PM Reporting Lab: [facility] [address] [facility] [address] Performing Lab: [facility] [address] [facility] [address] [facility] [place] [facility] CBC HEMOGLOBIN [MASS/VOLU ME] IN BLOOD 14.4 g/dL 12.8 - 17 05/26 Specimen Type: BLOOD No comment entered. Ordering Provider: TREVOR BEAN Report Released Date/Time: May 15, 2024 12:51 PM Reporting Lab: [facility] [place] [facility] [address] [facility] [address] Performing Lab: [facility] [place] [facility] [address] [facility] [address] [facility] [place] [facility] CBC HEMATOCRIT [VOLUME FRACTION] OF BLOOD BY AUTOMATED COUNT 42.6 39.2 - 50.4 05/26 Specimen Type: BLOOD No comment entered. Ordering Provider: TREVOR BEAN Report Released Date/Time: May 15, 2024 12:51 PM Reporting Lab: [facility] [place] [facility] [address] [facility] [address] Performing Lab: [facility] [place] [facility] [address] [facility] [address] [facility] [place] [facility] CBC MCV [ENTITIC VOLUME] BY AUTOMATED COUNT 91.2 fL 82 - 99 05/26 Specimen Type: BLOOD No comment entered. Ordering Provider: TREVOR BEAN Report Released Date/Time: May 15, 2024 12:51 PM Reporting Lab: [facility] [address] [facility] [address] Performing Lab: [facility] [address] [facility] [address] [facility] [facility] CBC MCHC [MASS/VOLU ME] BY AUTOMATED COUNT 33.8 g/dL 30.8 - 35.1 05/26 Specimen Type: BLOOD No comment entered. Ordering Provider: TREVOR BEAN Report Released Date/Time: May 15, 2024 12:51 PM Reporting Lab: [facility] [place] [address] [address] Performing Lab: [facility] [place] [facility] [address] [facility] [address] [facility] [place] [facility] CBC PLATELETS [#/VOLUME] IN BLOOD BY AUTOMATED COUNT 244 10*3/uL 140 - 360 05/26 Specimen Type: BLOOD No comment entered. Ordering Provider: TREVOR BEAN Report Released Date/Time: May 15, 2024 12:51 PM Reporting Lab: [facility] [place] [address] [address] Performing Lab: [place] [facility] [place] [address] [address] [facility] [place] [facility] CBC ERYTHROCYT E DISTRIBUTI ON WIDTH [RATIO] BY AUTOMATED COUNT 13.9 12.0 - 16.0 05/26 Specimen Type: BLOOD No comment entered. Ordering Provider: TREVOR BEAN Report Released Date/Time: May 15, 2024 12:51 PM Reporting Lab: [facility] [place] [address] [address] Performing Lab: [facility] [place] [address] [address] [place] [facility] [place] [facility] CBC MCH [ENTITIC MASS] BY AUTOMATED COUNT 30.8 pg 26.2 - 32.6 05/26 Specimen Type: BLOOD No comment entered. Ordering Provider: TREVOR BEAN Report Released Date/Time: May 15, 2024 12:51 PM Reporting Lab: [facility] [place] [address] [address] Performing Lab: [place] [facility] [address] [address] [facility] BASIC METABOLI C PANEL (non-fas ting) UREA NITROGEN [MASS/VOLU ME] IN SERUM OR PLASMA 20 mg/dL 7 - 25 05/26 Specimen Type: SERUM No comment entered. Ordering Provider: TREVOR BEAN Report Released Date/Time: May 15, 2024 12:51 PM Reporting Lab: [facility]N [address] [address] Performing Lab: [facility] [address] [address] [facility] BASIC METABOLI C PANEL (non-fas ting) GLUCOSE [MASS/VOLU ME] IN SERUM OR PLASMA 106 mg/dL 65 - 100 05/26 H Specimen Type: SERUM No comment entered. Ordering Provider: TREVOR BEAN Report Released Date/Time: May 15, 2024 12:51 PM Reporting Lab: [facility] [address] [address] Performing Lab: [facility] [address] [address] [facility] BASIC METABOLI C PANEL (non-fas ting) SODIUM [MOLES/VOL UME] IN SERUM OR PLASMA 137 mmol/L 135 - 145 05/26 Specimen Type: SERUM No comment entered. Ordering Provider: TREVOR BEAN Report Released Date/Time: May 15, 2024 12:51 PM Reporting Lab: [facility]N [facility] [address] Performing Lab: [facility]N [facility] [address] [facility] BASIC METABOLI C PANEL (non-fas ting) POTASSIUM [MOLES/VOL UME] IN SERUM OR PLASMA 4.2 mmol/L 3.5 - 5.0 05/26 Specimen Type: SERUM No comment entered. Ordering Provider: TREVOR BEAN Report Released Date/Time: May 15, 2024 12:51 PM Reporting Lab: [facility] [place] [address] [address] Performing Lab: [facility] [place] [address] [address] [facility] [place] [facility] BASIC METABOLI C PANEL (non-fas ting) CHLORIDE [MOLES/VOL UME] IN SERUM OR PLASMA 104 mmol/L 100 - 110 05/26 Specimen Type: SERUM No comment entered. Ordering Provider: TREVOR BEAN Report Released Date/Time: May 15, 2024 12:51 PM Reporting Lab: [facility] [place] [address] [address] Performing Lab: [facility] [place] [address] [address] [place] [facility] [place] [facility] BASIC METABOLI C PANEL (non-fas ting) CARBON DIOXIDE, TOTAL [MOLES/VOL UME] IN SERUM OR PLASMA 24 meq/L 20 - 30 05/26 Specimen Type: SERUM No comment entered. Ordering Provider: TREVOR BEAN Report Released Date/Time: May 15, 2024 12:51 PM Reporting Lab: [facility] [place] [address] [address] Performing Lab: [facility] [place] [address] [address] [facility] [place] [facility] BASIC METABOLI C PANEL (non-fas ting) CREATININE [MASS/VOLU ME] IN SERUM OR PLASMA 0.85 mg/dL 0.50 - 1.40 05/26 Specimen Type: SERUM No comment entered. Ordering Provider: TREVOR BEAN Report Released Date/Time: May 15, 2024 12:51 PM Reporting Lab: [facility] [place] [address] [address] Performing Lab: [facility] [place] [address] [address] [facility] BASIC METABOLI C PANEL (non-fas ting) GLOMERULAR FILTRATION RATE/1.73 SQ M.PREDICTE D [VOLUME RATE/AREA] IN SERUM, PLASMA OR BLOOD BY CREATININE -BASED FORMULA (CKD-EPI 2020) >90mL/mi n 60 05/26 Specimen Type: SERUM No comment entered. Ordering Provider: TREVOR BEAN Report Released Date/Time: May 15, 2024 12:51 PM Reporting Lab: [facility] [address] [address] Performing Lab: [address] [address] [facility] LIPID PANEL, NON FASTING CHOLESTERO L [MASS/VOLU ME] IN SERUM OR PLASMA 155 mg/dL 05/26 Specimen Type: SERUM No comment entered. Ordering Provider: TREVOR BEAN Report Released Date/Time: May 15, 2024 12:51 PM Reporting Lab: [facility] [address] [address] Performing Lab: [address] [address] [facility] LIPID PANEL, NON FASTING TRIGLYCERI DE [MASS/VOLU ME] IN SERUM OR PLASMA 82 mg/dL 0 - 150 05/26 Specimen Type: SERUM No comment entered. Ordering Provider: TREVOR BEAN Report Released Date/Time: May 15, 2024 12:51 PM Reporting Lab: [facility] [address] [address] Performing Lab: [address] [address] [facility] LIPID PANEL, NON FASTING CHOLESTERO L IN LDL [MASS/VOLU ME] IN SERUM OR PLASMA BY CALCULATIO N 85 mg/dL 0 - 129 05/26 Specimen Type: SERUM No comment entered. Ordering Provider: TREVOR BEAN Report Released Date/Time: May 15, 2024 12:51 PM Reporting Lab: [facility] [place] [facility] [address] [facility] [address] Performing Lab: [facility] [address] [facility] [address] [facility] [facility] LIPID PANEL, NON FASTING CHOLESTERO L.TOTAL/CH OLESTEROL IN HDL [MASS RATIO] IN SERUM OR PLASMA 2.9 05/26 Specimen Type: SERUM No comment entered. Ordering Provider: TREVOR BEAN Report Released Date/Time: May 15, 2024 12:51 PM Reporting Lab: [facility] [place] [facility] [address] [facility] [address] Performing Lab: [facility] [place] [facility] [address] [facility] [address] [place] [facility] [place] [facility] LIPID PANEL, NON FASTING CHOLESTERO L IN HDL [MASS/VOLU ME] IN SERUM OR PLASMA 54 mg/dL 40 - 60 05/26 Specimen Type: SERUM No comment entered. Ordering Provider: TREVOR BEAN Report Released Date/Time: May 15, 2024 12:51 PM Reporting Lab: [facility] [place] [facility] [address] [facility] [address] Performing Lab: [facility] [place] [facility] [address] [facility] [address] [facility] [place] [facility] LIVER FUNCTION PROTEIN [MASS/VOLU ME] IN SERUM OR PLASMA 7.1 g/dL 6.0 - 8.3 05/26 Specimen Type: SERUM No comment entered. Ordering Provider: TREVOR BEAN Report Released Date/Time: May 15, 2024 12:51 PM Reporting Lab: [facility] [place] [facility] [address] [facility] [address] Performing Lab: [facility] [address] [facility] [address] [facility] [place] [facility] LIVER FUNCTION ALBUMIN [MASS/VOLU ME] IN SERUM OR PLASMA 4.2 g/dL 3.5 - 5.0 05/26 Specimen Type: SERUM No comment entered. Ordering Provider: TREVOR BEAN Report Released Date/Time: May 15, 2024 12:51 PM Reporting Lab: [facility] [place] [facility] [address] [facility] [address] Performing Lab: [facility] [place] [facility] [address] [facility] [address] [facility] LIVER FUNCTION ALKALINE PHOSPHATAS E [ENZYMATIC ACTIVITY/V OLUME] IN SERUM OR PLASMA 72 U/L 40 - 150 05/26 Specimen Type: SERUM No comment entered. Ordering Provider: TREVOR BEAN Report Released Date/Time: May 15, 2024 12:51 PM Reporting Lab: [facility] [place] [address] [address] Performing Lab: [facility] [place] [facility] [address] [facility] [address] [facility] [facility] LIVER FUNCTION ASPARTATE AMINOTRANS FERASE [ENZYMATIC ACTIVITY/V OLUME] IN SERUM OR PLASMA 19 U/L 5 - 34 05/26 Specimen Type: SERUM No comment entered. Ordering Provider: TREVOR BEAN Report Released Date/Time: May 15, 2024 12:51 PM Reporting Lab: [facility] [place] [address] [address] Performing Lab: [facility] [place] [facility] [address] [facility] [address] [facility] [place] [facility] LIVER FUNCTION ALANINE AMINOTRANS FERASE [ENZYMATIC ACTIVITY/V OLUME] IN SERUM OR PLASMA 16 U/L 05/26 Specimen Type: SERUM No comment entered. Ordering Provider: TREVOR BEAN Report Released Date/Time: May 15, 2024 12:51 PM Reporting Lab: [facility] [place] [address] [address] Performing Lab: [facility] [place] [facility] [address] [facility] [address] [facility] [place] [facility] LIVER FUNCTION BILIRUBIN. TOTAL [MASS/VOLU ME] IN SERUM OR PLASMA 0.7 mg/dL 0.2 - 1.2 05/26 Specimen Type: SERUM No comment entered. Ordering Provider: TREVOR BEAN Report Released Date/Time: May 15, 2024 12:51 PM Reporting Lab: [facility] [place] [facility] [address] [place] [address] Performing Lab: [facility] [address] [facility] [address] [place] [facility] [place] [facility] CBC LEUKOCYTES [#/VOLUME] IN BLOOD BY AUTOMATED COUNT 7.78 10*3/uL 4.50 - 11.00 11/25 Specimen Type: BLOOD No comment entered. Ordering Provider: TREVOR BEAN Report Released Date/Time: Nov 26, 2023 08:55 AM Reporting Lab: [facility] [place] [address] [address] Performing Lab: [facility] [place] [address] [address] [facility] [place] [facility] CBC ERYTHROCYT ES [#/VOLUME] IN BLOOD BY AUTOMATED COUNT 4.73 10*6/uL 4.23 - 5.66 11/25 Specimen Type: BLOOD No comment entered. Ordering Provider: TREVOR BEAN Report Released Date/Time: Nov 26, 2023 08:55 AM Reporting Lab: [facility] [place] [address] [address] Performing Lab: [facility] [place] [address] [address] [facility] [place] [facility] CBC HEMOGLOBIN [MASS/VOLU ME] IN BLOOD 14.4 g/dL 12.8 - 17 11/25 Specimen Type: BLOOD No comment entered. Ordering Provider: TREVOR BEAN Report Released Date/Time: Nov 26, 2023 08:55 AM Reporting Lab: [facility] [place] [address] [address] Performing Lab: [facility] [place] [facility] [address] [facility] [address] [facility] [place] [facility] CBC HEMATOCRIT [VOLUME FRACTION] OF BLOOD BY AUTOMATED COUNT 43.4 39.2 - 50.4 11/25 Specimen Type: BLOOD No comment entered. Ordering Provider: TREVOR BEAN Report Released Date/Time: Nov 26, 2023 08:55 AM Reporting Lab: [facility] [address] [facility] [address] Performing Lab: [facility] [place] [facility] [address] [facility] [address] [facility] [place] [facility] CBC MCV [ENTITIC VOLUME] BY AUTOMATED COUNT 91.8 fL 82 - 99 11/25 Specimen Type: BLOOD No comment entered. Ordering Provider: TREVOR BEAN Report Released Date/Time: Nov 26, 2023 08:55 AM Reporting Lab: [facility] [place] [facility] [address] [facility] [address] Performing Lab: [facility] [place] [facility] [address] [facility] [address] [facility] [place] [facility] CBC MCHC [MASS/VOLU ME] BY AUTOMATED COUNT 33.2 g/dL 30.8 - 35.1 11/25 Specimen Type: BLOOD No comment entered. Ordering Provider: TREVOR BEAN Report Released Date/Time: Nov 26, 2023 08:55 AM Reporting Lab: [facility] [place] [facility] [address] [facility] [address] Performing Lab: [facility] [place] [address] [address] [facility] [place] [facility] CBC PLATELETS [#/VOLUME] IN BLOOD BY AUTOMATED COUNT 293 10*3/uL 140 - 360 11/25 Specimen Type: BLOOD No comment entered. Ordering Provider: TREVOR BEAN Report Released Date/Time: Nov 26, 2023 08:55 AM Reporting Lab: [facility] [place] [facility] [address] [facility] [address] Performing Lab: [facility] [place] [facility] [address] [facility] [address] [facility] [place] [facility] CBC ERYTHROCYT E DISTRIBUTI ON WIDTH [RATIO] BY AUTOMATED COUNT 12.8 12.0 - 16.0 11/25 Specimen Type: BLOOD No comment entered. Ordering Provider: TREVOR BEAN Report Released Date/Time: Nov 26, 2023 08:55 AM Reporting Lab: [facility] [place] [facility] [address] [facility] [address] Performing Lab: [facility] [place] [facility] [address] [facility] [address] [facility] [place] [facility] CBC MCH [ENTITIC MASS] BY AUTOMATED COUNT 30.4 pg 26.2 - 32.6 11/25 Specimen Type: BLOOD No comment entered. Ordering Provider: TREVOR BEAN Report Released Date/Time: Nov 26, 2023 08:55 AM Reporting Lab: [facility] [place] [facility] [address] [facility] [address] Performing Lab: [facility] [place] [facility] [address] [facility] [address] [facility] [place] [facility] VITAMIN B12 COBALAMIN (VITAMIN B12) [MASS/VOLU ME] IN SERUM OR PLASMA 251 pg/mL 200 - 900 11/25 Specimen Type: SERUM No comment entered. Ordering Provider: TREVOR BEAN Report Released Date/Time: Nov 26, 2023 08:55 AM Reporting Lab: [facility] [place] [facility] [address] [facility] [address] Performing Lab: [facility] [place] [facility] [address] [facility] [address] [place] [facility] [place] [facility] MAGNESIU M MAGNESIUM [MASS/VOLU ME] IN SERUM OR PLASMA 3.4 mg/dL 1.6 - 2.6 11/25 H Specimen Type: SERUM No comment entered. Ordering Provider: TREVOR BEAN Report Released Date/Time: Nov 26, 2023 08:55 AM Reporting Lab: [facility] [place] [facility] [address] [facility] [address] Performing Lab: [facility] [address] [facility] [address] [facility]PITALN [facility]ITALUSE [facility] HEMOGLOB IN A1C PANEL HEMOGLOBIN A1C/HEMOGL OBIN.TOTAL IN BLOOD BY HPLC 5.5 4.0 - 5.6 11/25 Specimen Type: BLOOD Comment: Values obtained from A1C measurement s can vary. For atypical A1C assays, a reported value of 7.0 could actually be between 6.72 and 7.28 if measured by a reference method. A reported value of 9.0 could actually be between 8.73 and 9.27. Ref: http://www. ngsp.org/[place] Pdata.asp Ordering Provider: TREVOR BEAN Report Released Date/Time: Nov 26, 2023 08:55 AM Reporting Lab: [facility] [address] [address] Performing Lab: [facility] HOSPITALN [facility]ITALUSE[address] [address] [facility]N [facility] TSH THYROTROPI N [UNITS/VOL UME] IN SERUM OR PLASMA 0.55 u[IU]/mL 0.35 - 5.00 11/25 Specimen Type: SERUM No comment entered. Ordering Provider: TREVOR BEAN Report Released Date/Time: Nov 26, 2023 08:55 AM Reporting Lab: [facility]ITAL[facility] [address] [address] Performing Lab: [facility] COUNTYTRN [facility]ITALUSE[address] [address] [facility]N [facility]ITALUSE [facility] Vital Signs Combined list of inpatient and outpatient Vital Signs from Department of Defense and Veterans Affairs, ranging from 12 months to all on record, depending upon the facility. Vital Sign Value Date Comments Source SYSTOLIC BLOOD PRESSURE 144 05/26/20 24 08:03:00 [facility] [place] [facility] DIASTOLIC BLOOD PRESSURE 108 024 08:03:00 [facility] [place] [facility] PULSE OXIMETRY 97 05/26/2024 08:03:00 [facility] [facility] WEIGHT 233 05/26/2024 08:03:00 [facility] [place] [facility] BMI 33 kg/m2 05/26/2024 08:03:00 [facility] [place] PAIN 8 05/26/2024 08:03:00 [facility] [place] [facility] HEIGHT 71 05/26/2024 08:03:00 [facility] [place] TEMPERATURE 97.4 05/26/2024 08:03:00 [facility] [place] [facility] PULSE 93 05/26/2024 08:03:00 [facility] [place] [facility] RESPIRATION 20 05/26/2024 08:03:00 [facility] [place] [facility] SYSTOLIC BLOOD PRESSURE 130 11/26/19 08:24:33 [facility] [place] [facility] DIASTOLIC BLOOD PRESSURE 80 024 08:24:33 [facility] [place] [facility] PULSE OXIMETRY 97 11/26/2023 08:24:33 [facility] [place] [facility] WEIGHT 234 11/26/2023 08:24:33 [facility] [place] [facility] BMI 33 kg/m2 11/26/2023 08:24:33 [facility] [place] [facility] PAIN 0 11/26/2023 08:24:33 [facility] [place] [facility] HEIGHT 71 11/26/2023 08:24:33 [facility] [place] TEMPERATURE 97.3 11/26/2023 08:24:33 [facility] [place] PULSE 102 11/26/2023 08:24:33 [facility] RESPIRATION 18 11/26/2023 08:24:33 [facility] [place] [facility] Encounters Combined list of: 1) Encounters from Department of Veterans Affairs facilities going backup to the last 18 months, not all VA inpatient encounters are included; 2) Encounters from the Department of Defense facilities going backup to 280 months. Location Location Details Encounter Type Encounter Number Reason For Visit Attending Provider ADM Date DC Date Status Disposition Source [facility](Op tometry Clinic MG) OUTPATIENT [id number] eye exam JOHN AKBAR W. 12/26 Released w/o Limitations [facility]( Optomet ry Clinic ) [facility] [place] [facility] OFF/OP EST MAY X REQ PHY/QHP [id number] Diagnos is: ICD-10- CM Z23 Encount er for immuniz RA TAWNYA Gordillo 05/18 [facility] [place] Outpatient Encounter [id number] 08/17 [facility] [place] [facility] Outpatient Encounter [id number] 08/17 [facility] [place] [facility] [place] [facility] OFFICE O/P EST LOW 20 MIN [id number] Diagnos is: ICD-10- CM G62.89 Other specifi ed polyneu Roland Pereira 11/25 [facility] En[facility] [id number] 01/23 [facility] [place] [facility] Outpatient Encounter [id number] 01/24 [facility] [place] [facility] HEARING AID REPAIR/MOD IFYING [id number] Diagnos is: ICD-10- CM Z46.1 Encount er for fitting and adjustm ent of hearing aid NAM QUINN 02/24 [facility] HEARING AID REPAIR/MOD IFYING [id number] Diagnos is: ICD-10- CM Z46.1 Encount er for fitting and adjustm ent of hearing aid MARIELA YAO 03/28 [facility] HEARING AID CHECK BOTH EARS [id number] Diagnos is: ICD-10- CM Z46.1 Encount er for fitting and adjustm ent of hearing aid GREY HARDINTaurus MARIO KATZ 04/30 [facility] Out[facility] Encounter [id number] 05/26 [facility] OFFICE O/P EST LOW 20 MIN [id number] Diagnos is: ICD-10- CM G62.89 Other specifi ed polyneu Roland Pereira 05/26 [facility] Out[facility] Encounter [id number] 08/19 [facility] Encounter [id number] 08/19 [facility] Encounter [id number] 09/01 [facility] Encounter [id number] 09/08 [facility] Encounter [id number] Roland BEAN J [facility] XM&SLCTN ALANNA [id number] Diagnos is: ICD-10- CM Z46.1 Encount er for fitting and adjustm ent of hearing aid OBED FRIEND 10/30 [facility] Procedures Combined list of: 1) Procedures from Department of Veterans Affairs facilities going back up to thelast 18 months, not all [place] non-surgical procedures are included; 2) All procedures from the Department of [facility] facilities. Procedure Procedure Type Code Date Perfomer Comments [facility] e Determination Of Refractive State Determination Of Refractive State 59781 7 JOHN AKBAR [facility] Ophthalmological New Patient Start Comprehensive Care Ophthalmological New Patient Start Comprehensive Care 30476 7 JOHN AKBAR [facility] DETERMINATION OF REFRACTIVE STATE 7 [facility] Social History Combined list of available smoking, tobacco, and other social history from Department of Defense and Veterans [facility] facilities. Social History Type Response Date Comment Source Tobacco [facility]2024 [facility] of tobacco [facility]/19/2023 [facility] of [facility] Y[facility] OR MORE 05/01/2018 [facility] History of tobacco use QUIT TOBACCO USE > 7 YEARS AGO 11/29/2017 quit x 40 yrs ( 1 pk a day ) - quit 1972 / restart 1979 for short period [facility] This section is an empty social history section. [facility] Plan of Care List of future care activities from Department [facility] facilities. Additional future care activities may be listed in the Assessment and Plan section. Date/Time Care Activity Care Activity Detail Facili ty 11/17/2024 AMBULATORY - MEDICINE [facility]
--- OUTSIDE RECORDS SUMMARY | 2024-11-03 17:25 | XMS_ITS | Continuity of Care Document ---
Author Organization [facility] Oliver Paddy lt Address [address] [place] [address]- Care Team Providers Care Flight Service Agent Name Role Phone Heladio Serra MD Primary Care Physician [phone] Encounter [facility] Date(s): 09/04/24 - 10/04/24 [facility] Adult [address] [place] [address]- Encounter Type: Triage Allergies, Adverse Reactions, Alerts [...] Influenza Virus Vaccine (oldterm) 05/14/19 Recorde d [id number] 12y+ bivalent booster vax 06/21/22 Recorded [id number] 12y+ bivalent booster vax 06/16/22 Recorded SARS-CoV-2 [...] 09/03/24 2:23:00 PM EST,Route to Pharmacy Electronically, [facility]/pharmacy #[id number], Partial fill upon patient request [...] Refills, Maintenance, 09/03/24 2:23:00 PM EST, Tablet, [facility]/pharmacy #[id number], Partial fill upon patient request [...] 1 Refills, Maintenance, 09/04/24 7:11:00 AM EST, [facility] STORE [id number], 181, cm, 09/03/24 4:29:00 EST, Height, 101, kg, 08/28/24 16:05:00 EST, Dry Weight Start Date: 09/04/24 Status: Ordered Quantity: 90.0 Unit: capsule Repeat number: 1 metoprolol 25 mg oral tablet 12.5 mg, 0.5, tablet, By Mouth, 2 times a day, # 60 tablet, Refills 1, Tot. 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 [...] Team Personnel Name: Margo Esparza RN Position: [facility] RN Member Role: Primary Care Nurse Name: Heladio Serra MD Position: [facility] Physician - Primary Care Member Role: PCP Address: [address] [place] [address]- Telecom: Name: Izabel Stratton RN Position: [facility] RN Member Role: Primary Care Nurse Name: Supriya Roberts RN Position: [facility] RN Member Role: Primary Care Nurse Name: Razia Raymunod RN Position: [facility] RN Member Role: Primary Care Nurse Care Team Related Persons Name: STEVEN LARA Insurance Providers Guarantor name: MONIQUE MARCO [facility] Information #: 1 Payer: [employer] MED[employer] ADV HMO Member Number: NA Policy Number: NA Group Number: NA
--- OUTSIDE RECORDS SUMMARY | 2024-11-03 17:25 | XMS_ITS | Continuity of Care Document ---
Author Organization [facility] Rambo chong Address [address] [place] [address]- Care Team Providers Care Mattress Packer Name Role Phone Heladio Serra MD Primary Care Physician Encounter [facility] Date(s): 09/29/24 - 10/29/24 [facility] [address] [place] [address] Drive [address] [place], [place] [address] Encounter Type: Triage Allergies, Adverse Reactions, [...] Influenza Virus Vaccine (oldterm) 05/14/19 Recorde d [id number] 12y+ bivalent booster vax 06/21/22 Recorded [id number] 12y+ bivalent booster vax 06/16/22 Recorded SARS-CoV-2 [...] 09/03/24 2:23:00 PM EST,Route to Pharmacy Electronically, [facility]/pharmacy #[id number], Partial fill upon patient [...] Refills, Maintenance, 09/03/24 2:23:00 PM EST, Tablet, [facility]/pharmacy #[id number], Partial fill upon patient [...] 1 Refills, Maintenance, 09/04/24 7:11:00 AM EST, [facility] STORE [id number], 181, cm, 09/03/24 4:29:00 EST, Height, 101, kg, 08/28/24 16:05:00 EST, Dry Weight Start Date: 09/04/24 Status: Ordered Quantity: 90.0 Unit: capsule Repeat number: 1 metoprolol 25 mg oral tablet 12.5 mg, 0.5, tablet, By Mouth, 2 times a day, # 60 tablet, Refills 1, Tot. 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, repeat [...] Margo Esparza RN Position: [facility] RN Member Role: Primary Care Nurse Name: Heladio Serra MD Position: [facility] Physician - Primary Care Member Role: PCP Address: [address] [place] [phone]- Telecom: Name: Izabel Stratton RN Position: [facility] RN Member Role: Primary Care Nurse Name: Supriya Roberts RN Position: [facility] RN Member Role: Primary Care Nurse Name: Razia Raymundo RN Position: [facility] RN Member Role: Primary Care Nurse Care Team Related Persons Name: STEVEN LARA Insurance Providers Guarantor name: MONIQUE MARCO [facility] Information #: 1 Payer: [employer] ADV HMO Member Number: NA Policy Number: NA Group Number: NA
--- OUTSIDE RECORDS SUMMARY | 2024-11-03 17:25 | XMS_ITS ---
Author Organization [facility] Address [address] [place] [address] Care Team Providers Care Utilization Coordinator Name Role Phone Heladio Serra MD Primary Care Provider Nannette Araiza [phone] Encounters Encounter Location Date Provider Diagnosis [address] [address] 10/27/2024 Nannette Perez Plan Of Treatment Next Appt Details Provider Name:Shawanda azul, 12/02/2024 03:00:00 PM, [address] [place] [address], [phone], Progress Notes * Emory VEGA KDOB:1955 (69 yo M)Acc No.[id number]:10/27/2024 Progress Note Patient:?Emory VEGA Provider:?Nannette Perez DPM :1955???Age:69 Y???Sex:Male Saul e:10/27/2024 Address:[address], [place]-[address] Pcp:Heladio Serra MD Subjective: * Chief Complaints: * ??? * Medical History:? Objective: * Vitals:? Assessment: Plan: * Treatment: * Images: * The named appointment provid er may or may not be the originator of this progress note, and it is not deemed complete until electronically signed by the appointment provider. Sign off status: Pending * Provider:Eitan Perez DPM Date:?0 10/27/2024 Generated for Brenda ibarra/Paolo/Yani on:?11/03/2024 05:24 PM EST
--- OUTSIDE RECORDS SUMMARY | 2024-11-03 17:25 | XMS_ITS ---
Author Organization [facility] Address [address] [facility] [place] [address] Care Team Providers Care Fan Balancer Name Role Phone Heladio Serra MD Primary Care Provider Nannette Araiza Unavailable [phone] Rashawn Domingo Unavailable [phone] Allergies No Known Allergies REASON FOR VISIT Last PCP Visit: 09/2023, Lat Visit PCP 08/24/23, Foot pain, Wart(s) Medications Medication SIG (Take, Route, Frequency, Duration) Notes Start Date End Date Status Aspirin 81 mg Not-Ta vonda Night Splint AFO - L1930 as directed Active Lisinopril 20 mg Act romi Pravastatin Sodium 80 mg Active NexIUM 40 mg Active hydrochlorothiazide Active Aleve Active Physical Therapy . . . 2-3x/week for 3- 4 weeks Active Social History Tobacco Use: Social History Observation [...] Are you an other tobacco user? 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 and Localized edema R60.0 Assessments Encounter Date Diagnosis (ICD Code) Assessment Notes Treatment Notes Treatment Clinical Notes Section Notes 04/24/2024 Other viral warts (ICD-10 - B07.8) 04/24/2024 Pain in left foot (ICD-10 - M79.672) 04/24/2024 Other hammer toe(s) (acquired), left foot (ICD-10 - M20.42) 04/24/2024 Other hammer toe(s) (acquired), right foot (ICD-10 - M20.41) 04/24/2024 Tailor's bunionette, 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 - M21.622) 04/24/2024 Eccrine poroma of foot, 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 Wartstick 40 percent Salicylic acid application under occlusion as directed, treated with CANTHERONE Plus Salicylic acid. The patient was informed of the possible skin reactions to Canthardin, including, but not limited to, pain, difficulty standing/walking for up to a week or more, redness, swelling, blistering, infection. Recommendations were made for the patient to take Tylenol and/or Anti-inflammatories such as Motrin for pain if their PMH allows, apply ice, or soak in cool water twice daily for 20 minutes for blistering, and call the office if reaction is severe Progress Notes * Emory VEGA KDOB:1955 (69 yo M)Acc No.[id number]:04/24/2024 Progress Notes Patient:?Emory Vega Provider:?Rashawn Domingo DPM :1955???Age:69 Y???Sex:Male Saul e:04/24/2024 Address: [address], [place], [place]-[address] Pcp:Heladio Serra MD Subjective: * Chief Complaints: * ??? Last PCP Visit: 09/2023La t Visit PCP 08/24/23Foot painWart(s) * HPI: ???Foot Pain:?Nature:?sharp, swelling, tenderness.?Location?Outside, Forefoot, Left .?Duration:?several months.?Onset/Cause:?poor fitting shoes.?Aggrevated:?any pressure, standing, walking, shoes.?Treatments:?tx with PCP.?Quality/Severity?moderate; per neur due to agent orange.?Wart:?Pt States Last PCP Visit:?Date:?09/05/2022 * ROS:?General/Constitutional:?Nausea?denies.?Vomiting?denies.?Hunger Thirst?denies.?Loss appetite?denies.?Chills?denies.?Fatigue?denies.?Fever?denies.?Night Sweats?denies.?Unexplained weight loss?denies.?Unexplained weight gain?denies.?HEENTM:?Dentures?denies.?Dizziness?denies.?Glasses/contacts?denies.?Retinopathy?de nies.?Blurred/double vision?denies.?TMJ?denies.?Discharge/drainage?denies.?Implants?denies.?Sore throat?denies.?Dental implants?denies.?Hard of hearing ?admits.?Difficulty chewing/swallowing/speaking?denies.?Nose bleeds?denies.?Sore mouth?denies.?Respiratory:?On Oxygen?denies.?Pneumonia/pleurisy?denies.?Bronchitis?denies.?Emphysema?denies.?C oughing?denies.?Cough blood?denies.?Shortness of breath?denies.?Wheezing?denies.?Cardiovascular:?Pacemaker?denies.?MVP?denies.?WPW?denies.?CHF?denies.?Heart attack?denies.?Septal defect?denies.?Rapid beat?denies.?Chest pain ?denies.?Atrial Fib.?denies.?Murmur/Palpitations?denies.?Gastrointestinal:?Hemorrhoids?denies.?Stomach/Abdominal pain?denies.?Dark blood stool?denies.?Irritable bowel ?denies.?Constipation?denies.?Diarrhea?denies.?Hematology:?Swelling?denies.?Clots?denies.?Varicose Veins?denies.?Bruising?denies.?Bleeding problem?denies.?Genitourinary:?Blood urine?denies.?Frequent/Painfu/urination/bladder control?denies.?Kidney stones?denies.?Infection (UTI)?denies.?Nephropathy?denies.?sex trans dis (STD)?denies.?Prostate?denies.?Musculoskeletal:?Hammertoes?denies.?Bunions?denies.?Back Pain?denies.?Muscle Cramps/ Resting?denies.?Muscle cramps / walking?denies.?Generalized aches and pains?denies.?Weakness?denies.?Integ.:?Phipps?denies.?Scars?denies.?Corns/calluses?denies.?Ingrown nails?denies.?Painful nails?denies.?Open Sores?denies.?Rashes?denies.?Neurologic:?Difficulty sleeping?denies.?Brain disorder?denies.?Numbness?denies.?Balance trouble?denies.?Confusion?denies.?Fainting/blackouts?denies.?Tingling?denies.?Tr emors?denies.? * Medical History:? * Surgical History:?rotator cu ff tear repair 08/22/2000hip replacement rt and left 02/29/04-2014hernia 06/22/12 * Hospitalization/Major Diagno stic Procedure:?Denies Past Hospitalization * Family History:?Mother: dece ased, cancer.?Father: .?Siblings: neuropathy.? * Social History:?Tobacco Use:?Tobacco Use/Smoking?Are you a:?nonsmoker ?Additional Findings: Tobacco Non-User?Current non-smoker ?Tobacco use other than smoking?Are you an other tobacco user??No ???Drugs/Alcohol:?Drugs?Have you used drugs other than those for medical reasons in the past 12 months??No ?Alcohol Screen?Did you have a drink containing alcohol in the past year??Yes ?Points?0 ?Interpretation?Negative ???Miscellaneous:?Caffeine: yes, frequency:, 2-3 cups per day. ?Children: yes. ?Exercise: yes, walking, swimming. ?Marital status: . 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 * Medications:?TakingNight Spl int AFO - L1930 as directed Physical Therapy . . . . 2-3x/weekAleve hydrochlorothiazide Lisinopril 20 mg NexIUM 40 mg Pravastatin Sodium 80 mg Taking Night Splint AFO - L1930 as directed Taking Physical Therapy . . . . 2-3x/weekTaking Aleve Taking hydrochlorothiazide Taking Lisinopril 20 mg Taking NexIUM 40 mg Taking Pravastatin Sodium 80 mg Not-Taking/PRNAspirin 81 mg Medication List reviewed and reconciled with the patientNot-Taking/PRN Aspirin 81 mg Medication List reviewed and reconciled with the patient * Allergies:?N.K.D.A.yes[Aller gies Verified] Objective: * Vitals:?Ht: 6 ft, Wt:220, BM I:29.83, Shoe size:10W, BP:120/80 mm Hg. * Examination: ???General Examination: ?GENERAL APPEARANCE:?pleasant, alert, well nourished, well developed, well hydrated, with good attention to hygene/body habitus, and in no acute distress.?ORIENTED:?person,place, and time.?Neurological: ?SENSORY:?Neurological exam is normal, pain sensation normal, vibration sensation intact, pinprick sensation is normal in the lower extremities, denies, tingling, burning, anesthesia, paresthesia, hyperesthesia, B/L.?TINEL'S COMPRESSION:?Negative tarsal tunnel, malaika pedis, and medial calcaneal nerves B/L.?BABINSKI REFLEX:?absent.?Neuroma Pain: ?PALPATION:?No interspace pain noted on palpation.?Vascular: ?DP PULSES:?2/4, B/L.?PT PULSES:?2/4, B/L.?CAPILLARY FILL TIME:?3 secs. per digit, B/L.?SKIN TEMPERTURE GRADIENT OF THE LOWER EXTERMITIES:?warm to cool, proximal to distal, B/L.?HAIR GROWTH/TEXTURE/ELASTICITY/TURGOR:?normal, B/L.?PIGMENTATION:?normal, B/L.?EDEMA:?no edema.?TELANGECTASIA:?absent.?VARICOSITIES:?absent.?Dermatologic: ?VERRUCA:?Reveals a Single , multi-loculated , mosaic-patterned, round, raised, flat-topped, petechial bleeding papule(s), with cauliflower appearance and interruption of skin lines, pain to lateral compression, and size estimated at __1__ mm diameter, plantar Forefoot, LEFT 5th mtpj.?Orthopedic: ?MUSCLE STRENGTH:?5/5 all groups in a symmetrical fashion , B/L.?GAIT ABNORMALITY:?pronated, abducted, B/L.?TAILOR'S BUNION:? Prominent, painful, inflamed 5th MTH/MPJ, LEFT.?DIGITAL DEFORMITIES:? Digital contracture emilia 2nd, 3rd.? 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 Plan: * Treatment: * Procedures:?Wart Treatment:?Procedure?Verrucae(s) were debrided to pin-point bleeding margins with sterile surgical blade (66241), silver nitrate chemocautery applied, recomm. Wartstick 40 percent Salicylic acid application under occlusion as directed, treated with CANTHERONE Plus Salicylic acid. The patient was informed of the possible skin reactions to Canthardin, including, but not limited to, pain, difficulty standing/walking for up to a week or more, redness, swelling, blistering, infection. Recommendations were made for the patient to take Tylenol and/or Anti- inflammatories such as Motrin for pain if their PMH allows, apply ice, or soak in cool water twice daily for 20 minutes for blistering, and call the office if reaction is severe.? * Procedure Codes:?50916 Wart Destruction, 1-14, Modifiers: XS * Follow Up:?6 Months * Images: * Sign off status: Completed true * Provider:?Rashawn Domingo DPM Date:? 024 Generated for Brenda ibarra/Paolo/eTransmitting on:?11/03/2024 05:25 PM EST History and Physical Notes * HPI (History [...] medial calcaneal nerves B/L Dermatologic VERRUCA: Reveals a Single , multi-loculated , mosaic-patterned, round, raised, flat-topped, petechial bleeding papule(s), with cauliflower appearance and interruption of skin lines, pain to lateral compression, and size estimated at __1__ mm diameter, plantar Forefoot, LEFT 5th mtpj Orthopedic GAIT ABNORMALITY: pronated, abducted, B/L DIGITAL [...]
--- OUTSIDE RECORDS SUMMARY | 2024-11-03 17:25 | XMS_ITS | Continuity of Care Document ---
Author Organization [facility] Address [address] [place] [address]- Care Team Providers Care Venture Capitalist Name Role Phone Heladio Serra MD Primary Care Physician [phone] Encounter [facility] Date(s): 09/19/24 - 10/19/24 [facility] [address] [place] [address] Drive [address] [place], [place] [address] Encounter Type: Triage Allergies, Adverse Reactions, [...] Influenza Virus Vaccine (oldterm) 05/14/19 Recorde d [id number] 12y+ bivalent booster vax 06/21/22 Recorded [id number] 12y+ bivalent booster vax 06/16/22 Recorded SARS-CoV-2 [...] 09/03/24 2:23:00 PM EST,Route to Pharmacy Electronically, [facility]/pharmacy #[id number], Partial fill upon patient request [...] Refills, Maintenance, 09/03/24 2:23:00 PM EST, Tablet, [facility]/pharmacy #[id number], Partial fill upon patient request [...] 1 Refills, Maintenance, 09/04/24 7:11:00 AM EST, [facility] STORE [id number], 181, cm, 09/03/24 4:29:00 EST, Height, 101, kg, 08/28/24 16:05:00 EST, Dry Weight Start Date: 09/04/24 Status: Ordered Quantity: 90.0 Unit: capsule Repeat number: 1 metoprolol 25 mg oral tablet 12.5 mg, 0.5, tablet, By Mouth, 2 times a day, # 60 tablet, Refills 1, Tot. Refills 1, Maintenance,09/26/24 9:36:00 AM EST, Route to Pharmacy Electronically, [facility]/pharmacy #[id number], Partial fill upon patient request [...] 9:36:00 AM EST, Route to Pharmacy Electronically, [facility]/pharmacy #[id number], Partial fill upon patient request [...] 3 Refills, Maintenance, 05/01/24 9:35:00 AM EDT,Tablet, [facility]/pharmacy #[id number], Partial fill upon patient request if the [...] Confirmed Active Venous stasis syndrome Confirmed Active 44797; repeat 2024 73740; repeat 2021 3Endoscopy 2019+ Cordova's esophagus, repeat [...] Team Personnel Name: Margo Esparza RN Position: [facility] RN Member Role: Primary Care Nurse Name: Heladio Serra MD Position: [facility] Physician - Primary Care Member Role: PCP Address: [address] [place] [address]- Telecom: Name: Izabel Stratton RN Position: [facility] RN Member Role: Primary Care Nurse Name: Supriya Roberts RN Position: [facility] RN Member Role: Primary Care Nurse Name: Razia Raymundo RN Position: [facility] RN Member Role: Primary Care Nurse Care Team Related Persons Name: STEVEN LARA Insurance Providers Guarantor name: MONIQUE LARA [facility] Information #: 1 Payer: [employer] MEDICARE ADV HMO Member Number: NA Policy Number: NA Group Number: NA
--- OUTSIDE RECORDS SUMMARY | 2024-11-03 17:25 | XMS_ITS ---
Author Name [facility] Organization [facility] Address [address] [place] [address] Care Team Providers Care Early Childhood Coordinator Name Role Phone WARREN BEAN Primary Care Provider Unavaillatha [employer] [facility] Insurance Providers: All historical and current Section Date Range: From patient's date of to the date document was created. This section includes the names of all active insurance providers for the patient. Insurance Provider Type of Coverage Plan Name Start of Policy Coverage End of Policy Coverage Group Number Member ID Insurance Provider's Telephone Number Policy Hernandez's Name Patient's Relationship to Policy Hernandez AEST. [facility] ([facility]) MEDICARE ADVANTAGE MCR ([facility]) Sep 03, 2022 [id number] CHAD LARA PATIENT [facility] ([facility]) MEDICARE ADVANTAGE [facility] ([facility]) Sep 03, 2018 [id number] CHAD LARA PATIENT Selected Encounter This section includes the information on record at ID for the Encounter. Date/Time Encounter Type Encounter Description Reason Provider Source Apr 30, 2024 09:00 AM HEARING AID CHECK BOTH EARS AUDIOLOGY ICD-10-CM Z46.1 Encounter for fitting and adjustment of hearing aid NEHEMIAH HARDIN Encounter Template Text not used by [facility] Assessments - Encounter Diagnoses This section includes the primary and secondary diagnoses documented for the Encounter. Date/Time Primary/Secondary Diagnosis Diagnosis Name Provider Source Apr 30, 2024 09:00 AM PRIMARY Encounter for fitting and adjustment of hearing aid KAIDEN GUPTA [facility] Apr 30, 2024 09:00 AM SECONDARY Sensorineural hearing loss, bilateral KAIDEN GUPTA [facility] Plan of Treatment: Future Appointments (+ 6 months) and Future Tests (+/- 45 days) The Plan of Treatment section includes future care activities for the patient from all ID treatmentfacilities. This section includes future appointments and future orders which are active, pending or scheduled. Future Appointments This section includes appointments that were scheduled to occur 6 months from the date of the Encounter, up to a maximum of 20 appointments. The data comes from all ID treatment facilities. Appointment Date/Time Appointment Type Appointme nt Facility Name May 26, 2024 08:30 AM AMBULATORY - MEDICINE [facility] Lab Results: +/- 30 days of the encounter This section includes the Chemistry and Hematology Lab Results on record with ID for the patient. Radiology Reports and Pathology Reports are provided separately, in subsequent sections. Lab Results This section contains the Chemistry/Hematology Results that were resulted 30 days before or 30 daysafter the date of the Encounter. Date/Time Source Result Type Result - Unit Interpretation Reference Range Comment May 26, 2024 09:17 AM [facility] CBC Specimen Type: BLOOD No comment entered. Ordering Provider: EMEKA BEAN Report Released Date/Time: May 15, 2024 12:51 PM Reporting Lab: [facility] [address] [facility] [address] Performing Lab: [facility] [address] [facility] [address] WBC 7.83 10*3/uL 4.50-11.00 RBC 4.67 10*6/uL 4.23-5.66 HGB 14.4 g/dL 12.8-17 HCT 42.6 39.2-50.4 MCV 91.2 fL 82-99 MCHC 33.8 g/dL 30.8-35.1 PLT 244 10*3/uL 140-360 RDW-CV 13.9 12.0-16.0 MCH 30.8 pg 26.2-32.6 May 26, 2024 09:17 AM [facility] BASIC METABOLIC PANEL (non-fasting) Specimen Type: SERUM No comment entered. Ordering Provider: EMEKA BEAN Report Released Date/Time: May 15, 2024 12:51 PM Reporting Lab: [facility] [address] [facility] [address] Performing Lab: [address] [address] UREA NITROGEN 20 mg/dL 7-25 GLUCOSE 106 mg/dL H 65-100 SODIUM 137 mmol/L 135-145 POTASSIUM 4.2 mmol/L 3.5-5.0 CHLORIDE 104 mmol/L 100-110 CO2 24 meq/L 20-30 CREATININE, Serum 0.85 mg/dL 0.50-1.40 eGFR(CKD-EPI 2020) >90 mL/min >60 May 26, 2024 09:17 AM [facility] LIPID PANEL, NON FASTING Specimen Type: SERUM No comment entered. Ordering Provider: EMEKA BEAN Report Released Date/Time: May 15, 2024 12:51 PM Reporting Lab: [facility] [address] [facility] [address] Performing Lab: [address] [address] CHOLESTEROL 155 mg/dL TRIGLYCERIDE 82 mg/dL 0-150 LDL calculated 85 mg/dL 0-129 CHOL/HDL 2.9 HDL CHOLESTEROL 54 mg/dL 40-60 May 26, 2024 09:17 AM [facility] LIVER FUNCTION Specimen Type: SERUM No comment entered. Ordering Provider: EMEKA BEAN Report Released Date/Time: May 15, 2024 12:51 PM Reporting Lab: [address] [address] Performing Lab: [address] [address] PROTEIN,TOTAL 7.1 g/dL 6.0-8.3 ALBUMIN 4.2 g/dL 3.5-5.0 ALKALINE PHOSPHATASE 72 U/L 40-150 AST 19 U/L 5-34 ALT 16 U/L BILIRUBIN, TOTAL 0.7 mg/dL 0.2-1.2 Social History: Smoking Status (Most current) and Tobacco Use (All prior to encounter date) This section includes the most current, and the historical, smoking and tobacco- related health factors from the ID facility where the Encounter took place. Current Smoking Status This section includes the most current smoking, or tobacco-related health factor, from the ID facility where the Encounter took place. Date/Time Current Smoking Status Comment [facility] Mar 19, 2023 04:04 PM ID-TOBACCO QUIT 15 YRS OR MORE [facility] Tobacco Use History This section includes a history of the smoking, or tobacco-related health factors, that were collected on or before the date of the Encounter. The data comes from the ID facility where the Encounter took place. Date/Time Smoking Status/Tobac co Use Comment Facility Mar 19, 2023 04:04 PM VA-TOBACCO QUIT 15 YRS OR MORE [facility] May 01, 2018 11:03 AM VA-TOBACCO FORMER USER [facility] May 01, 2018 11:03 AM ID-TOBACCO QUIT 15 YRS OR MORE [facility] Nov 29, 2017 11:08 AM QUIT TOBACCO USE > 7 YEARS AGO quit x 40 yrs ( 1 pk a day ) - quit 1972 / restart 1979 for short period [facility] Encounter Notes: All associated encounter notes This section contains the clinical notes associated to the Encounter. Date/Time Encounter Note(s) Provider Source Apr 30, 2024 07:29 AM AUDIOLOGY NOTE: LOCAL TITLE: AUDIOLOGY HEALTH LEAD RETAIL SALES ASSOCIATE STANDARD TITLE: AUDIOLOGY NOTE DATE OF NOTE: APR 30, 2024@07:29 ENTRY DATE: APR 30, 2024@07:29:59 AUTHOR: WILLI GUPTA COSIGNER: NEHEMIAH HARDIN URGENCY: STATUS: COMPLETED AUDIOLOGY HEALTH LEAD RETAIL SALES ASSOCIATE Has ADDENDA April 30, 2024 History/Background: [place] was seen for a hearing aid follow up, unaccompanied. scheduled today's appointment stating he received his hearing aids back from repair and they have antennas . Hearing aids: O[employer]on MORE 1 miniRITE-Rs Serial Numbers: [id number] Battery Size: Rechargeable Date Issued: 11/04/2021 Hearing aid check: Both hearing aids were cleaned and checked. Removal strings were cut off both earmolds. Biologic check was good for both devices. Plan: is due for an Updated Hearing Eval in October 2024 and will contact the clinic to schedule. /fay/ WILLI GUPTA Audiology Health Load Manager Signed: 04/30/2024 09:00 /fay/ NEHEMIAH HARDIN STAFF SUPPLY CHAIN ENGINEER Cosigned: 04/30/2024 09:01 04/30/2024 ADDENDUM STATUS: COMPLETED Suicide Screen: C-SSRS Screening Umpire-Suicide Severity Rating Scale (C-SSRS Screener) 1. Over the past month, have you wished you were or wished you could go to sleep and not wake up? No 2. Over the past month, have you had any actual thoughts of killing yourself? No 3. Over the past month, have you been thinking about how you might do this? Response not required due to responses to other questions. 4. Over the past month, have you had these thoughts and had some intention of acting on them? Response not required due to responses to other questions. 5. Over the past month, have you started to work out or worked out the details of how to kill yourself? Response not required due to responses to other questions. 6. If yes, at any time in the past month did you intend to carry out this plan? Response not required due to responses to other questions. 7. In your lifetime, have you ever done anything, started to do anything, or prepared to do anything to end your life (for example, collected pills, obtained a gun, gave away valuables, went to the roof but didn't jump)? No 8. If YES, was this within the past 3 months? Response not required due to responses to other questions. /fay/ WILLI GUPTA Audiology Health Load Manager Signed: 04/30/2024 09:02 /es/ NEHEMIAH HARDIN STAFF SUPPLY CHAIN ENGINEER Cosigned: 04/30/2024 10:52 WILLI GUPTA CN[facility]
--- OUTSIDE RECORDS SUMMARY | 2024-11-03 17:25 | XMS_ITS ---
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 Name Role Phone WARREN BEAN Primary Care Provider [facility] Insurance Providers: All historical and current [...] Name Patient's Relationship to Policy Hernandez [employer]NA [facility] MEDICARE ADVANTAGE [facility] Sep 03, 2022 [id number] [phone] CHAD LARA PATIENT [facility] MEDICARE ADVANTAGE [facility] Sep 03, 2018 [id number] [phone] CHAD LARA PATIENT Selected Encounter This section includes the information on record at [facility] for the Encounter. Date/Time Encounter Type Encounter Description Reason Provider Source Oct 30, 2024 03:00 PM HEARING AID XM&SLCTN [facility] AUDIOLOGY ICD-10-CM Z46.1 Encounter for fitting and adjustment of hearing aid ALEX FRIEND Encounter Template Text not used by [facility] Assessments - Encounter Diagnoses This section includes the primary and secondary diagnoses documented for the Encounter. Date/Time Primary/Secondary Diagnosis Diagnosis Name Provider Source Oct 30, 2024 04:50 PM PRIMARY Encounter for fitting and adjustment of hearing aid ALEX FRIEND [facility] Oct 30, 2024 04:50 PM SECONDARY Sensorineural hearing loss, bilateral ALEX FRIEND [facility] Plan of Treatment: Future Appointments (+ 6 months) and Future Tests (+/- 45 days) The Plan of Treatment section includes future care activities for the patient from all [facility] treatmentfacilities. This section includes future appointments and future orders which are active, pending or scheduled. Future Appointments This section includes appointments that were scheduled to occur 6 months from the date of the Encounter, up to a maximum of 20 appointments. The data comes from all [facility] treatment facilities. Appointment Date/Time Appointment Type Appointme nt Facility Name Nov 17, 2024 08:30 AM AMBULATORY - MEDICINE [facility] Lab Results: +/- 30 days of the encounter This section includes the Chemistry and Hematology Lab Results on record with [facility] for the patient. Radiology Reports and Pathology Reports are provided separately, in subsequent sections. Lab Results This section contains the Chemistry/Hematology Results that were resulted 30 days before or 30 daysafter the date of the Encounter. Date/Time Source Result Type Result - Unit Interpretation Reference Range Comment Oct 21, 2024 12:00 AM [facility] OCCULT BLOOD FIT X1 SCREEN (MFP ONLY) Specimen Type: FECES No comment entered. Ordering Provider: JAXON BEAN AM Report Released Date/Time: Sep 17, 2024 12:18 PM Reporting Lab: [facility] [address] [id number] Performing Lab: [facility] [address] [id number] OCCULT BLOOD (FIT)#1 OF 1 NEGATIVE NEG Social History: Smoking Status (Most current) and Tobacco Use (All prior to encounter date) This section includes the most current, and the historical, smoking and tobacco- related health factors from the [facility] facility where the Encounter took place. Current Smoking Status This section includes the most current smoking, or tobacco-related health factor, from the [facility] facility where the Encounter took place. Date/Time Current Smoking Status Comment [facility] it May 26, 2024 08:30 AM VA-TOBACCO FORMER USER [facility] Tobacco Use History This section includes a history of the smoking, or tobacco-related health factors, that were collected on or before the date of the Encounter. The data comes from the [place] facility where the Encounter took place. Date/Time Smoking Status/Tobac co Use Comment Facility May 26, 2024 08:30 AM VA-TOBACCO QUIT 15 YRS OR MORE [facility] Mar 19, 2023 04:04 PM VA-TOBACCO FORMER USER [facility] Mar 19, 2023 04:04 PM VA-TOBACCO QUIT 15 YRS OR MORE [facility] May 01, 2018 11:03 AM VA-TOBACCO FORMER USER [facility] May 01, 2018 11:03 AM VA-TOBACCO QUIT 15 YRS OR MORE [facility] Nov 29, 2017 11:08 AM QUIT TOBACCO USE > 7 YEARS AGO quit x 40 yrs ( 1 pk a day ) - quit 1972 / restart 1979 for short period [facility] Encounter Notes: All associated encounter notes This section contains the clinical notes associated to the Encounter. Date/Time Encounter Note(s) Provider Source Oct 30, 2024 11:56 AM AUDIOLOGY E & M NOTE: LOCAL TITLE: AUDIOLOGY CLINIC STANDARD TITLE: AUDIOLOGY E & M NOTE DATE OF NOTE: OCT 30, 2024@11:56 ENTRY DATE: OCT 30, 2024@11:56:37 AUTHOR: ALEX FRIEND COSIGNER: URGENCY: STATUS: COMPLETED Dx CODE: H90.3-Sensorineural Hearing Loss, Bilateral APPOINTMENT TYPE: Hearing Re-Evaluation and Hearing Aid Selection BACKGROUND/HISTORY: [place] was seen today for a hearing re-evaluation and hearing aid selection appointment, unaccompanied. He was fit on 11/04/21 with OTICON MORE 1 MINIRITE-Rs and reports a decline in benefit from these devices. notes that the left aid isn't staying in his ear well. He is eligible for new hearing aids through the [place] due to the age of the current devices. His last hearing evaluation was on 01/05/22 and he believes his hearing has declined somewhat since then. He notes that he's had to raise the volume of the hearing aids more often. [place] reports a longstanding history of constant, bilateral tinnitus which has remained stable. He notes occasional dizziness if standing up quickly. Medical history includes: Active problems - Computerized Problem List is the source for the followin. Carotid artery stenosis 2. Peripheral motor neuropathy 3. Exposure to potentially hazardous substance 4. Immunization status 5. Colonic polyp 6. Osteoarthritis ([facility] [id number]) 7. Tinnitus ([facility] [id number]) 8. GERD - Gastro-Esophageal Reflux Disease ([facility] [id number]) 9. Under care of multiple providers 10. History of surgery 11. HTN - Hypertension ([facility] [id number]) 12. Hypercholesterolemia ([facility] [id number]) 13. Obesity ([facility] [id number]) 14. GERD - Gastro-Esophageal Reflux Disease ([facility] [id number]) 15. Cordova's Esophagus ([facility] [id number]) 16. CAD - Coronary Artery Disease ([facility] [id number]) 17. Obesity ASSESSMENT: Results of today's testing are as follows: Otoscopy revealed occluding cerumen in the right ear and non-occluding cerumen in the left. With 's verbal consent, cerumen removal was performed in the right ear without incident using a lighted curette. Otoscopy was WNL post- cerumen removal. Normal tympanograms obtained bilaterally. Pure tone audiometric testing under headphones in the right ear revealed normal hearing from 250-500 Hz, sloping to a mild to severe sensorineural hearing loss from 8287-1339 Hz. Testing in the left ear revealed mild sloping to profound sensorineural hearing loss from 250-8000 Hz. SRT WORD RECOGNITION (Recorded [place] CNC 1/2 Word List) Right 45dBHL 96% @ 80dBHL/50dBm Left 45dBHL 84% @ 80dBHL/50dBm No significant changes were found when compared to the 2021 audiological evaluation. HEARING AID CHECK: Left collision technician was found to be twisted and misshapen. He has a size 3 on the right and size 2 collision technician on the left. Believe the problem with left aid retention is the collision technician is too short. Replaced receivers on both aids with size 3 85 gain. Earmolds were cleaned and microphones were cleared of debris. A firmware update was performed and hearing aids were reprogrammed to today's audiogram. HEARING AID SELECTION: Different hearing aid options were discussed. He is interested in technology similar to his previous hearing aids. He denies having a pacemaker and would like to remain with rechargeable devices. OTICON INTENT 1 MINIRITE-Rs were selected and ordered in ROES with size 3 85 gain receivers and canal lock earmolds (using impressions on file). EDUCATION/COUNSELING: The patient was counseled re: today's hearing test results. He demonstrated satisfactory understanding of the education and plan, and was given the opportunity to ask questions throughout today's visit. PLAN: 1. Upon receipt of the new hearing aids, [place] will be contacted to schedule a 60 minute hearing aid fitting with any provider. 2. Hearing re-evaluation in 3-5 years, or sooner if change in hearing occurs. Patient Education Education provided on the following topics: Hearing test results Education provided to: P Response to Education: [facility] ____ Patient P Family F Significant Other SO Verbalizes Understanding VU Returns Demonstration RD Performs Independently PI Lacks Comprehension LC Refused Education RE Not Applicable NA /fay/ ANN CORDERO, [facility]-A STAFF CENTERLESS GRINDER SET UP OPERATOR Signed: 10/30/2024 16:50 ALEX FRIEND [place] [facility]
--- OUTSIDE RECORDS SUMMARY | 2024-11-03 17:25 | XMS_ITS ---
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 . . 2-3x/week for 3- 4 weeks Active NexIUM 40 mg Active Lisinopril 20 mg Act romi hydrochlorothiazide Active Night Splint AFO - L1930 as directed Active Pravastatin Sodium 80 mg Active Aspirin 81 mg Mary-Ayaan ferrari Social History Tobacco Use: Social History Observation [...] No Vital Signs Height 6 ft in 03/13/2024 Weight 220 lbs 03/13/2024 BMI 29.83 kg/m2 03/13/2024 Blood pressure systolic 120 mm Hg 03/13/20 24 Blood pressure diastolic 80 mm Hg 024 Encounters Encounter Location Date Provider Diagnosis [facility] [address] [place] [address] 03/13/2024 Rashawn Domingo Other viral warts B07.8 ; Pain in left foot M79.672 ; Other hammer toe(s) (acquired), left foot M20.42 ; Other hammer toe(s) (acquired), right foot M20.41 ; Tailor's bunionette, 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 ; Eccrine poroma of foot, 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 and Localized edema R60.0 Assessments Encounter Date Diagnosis (ICD Code) Assessment Notes Treatment Notes Treatment Clinical Notes Section Notes 03/13/2024 Other viral warts (ICD-10 - B07.8) 03/13/2024 Pain in left foot (ICD-10 - M79.672) 03/13/2024 Other hammer toe(s) (acquired), left foot (ICD-10 - M20.42) 03/13/2024 Other hammer toe(s) (acquired), right foot (ICD-10 - M20.41) 03/13/2024 Tailor's bunionette, 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 - M21.622) 03/13/2024 Eccrine poroma of foot, 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) 03/13/2024 Localized edema (ICD-10 - R60.0) Plan Of Treatment Next Appt Details Follow Up: 4 Weeks, 6 Weeks, Reason: Provider Name:Shawanda azul, 12/02/2024 03:00:00 PM, [address] [place] [address], [phone], Procedure Notes * Category Sub-Category Detail Notes Wart Treatment Procedure Verrucae(s) were debrided to pin-point bleeding margins with sterile surgical blade (74664), silver nitrate chemocautery applied, recomm. Wartstick 40 percent Salicylic acid application under occlusion as directed Progress Notes * Emory VEGA KDOB:1955 (68 yo M)Acc No.[id number]:03/13/2024 Progress Note Patient:?Emory Vega Provider:?Rashawn Domingo DPM :1955???Age:68 Y???Sex:Male Saul e:03/13/2024 Address: [address] [place], [id number] Pcp:Heladio Serra MD Subjective: * Chief Complaints: * ??? Last PCP Visit: 09/2023La t Visit PCP 08/24/23Foot painWart(s) * HPI: ???Foot Pain:?Nature:?sharp, swelling, tenderness.?Location?Outside, Forefoot, Left .?Duration:?several months.?Onset/Cause:?poor fitting shoes.?Aggrevated:?any pressure, standing, walking, shoes.?Treatments:?tx with PCP.?Quality/Severity?moderate; per neur due to agent orange.?Wart:?Pt States Last PCP Visit:?Date:?09/05/2022 * ROS:?General/Constitutional:?Nausea?denies, denies.?Vomiting?denies, denies.?Hunger Thirst?denies, denies.?Loss appetite?denies, denies.?Chills?denies, denies.?Fatigue?denies, denies.?Fever?denies, denies.?Night Sweats denies, denies.?Unexplained weight loss?denies, denies.?Unexplained weight gain?denies, denies.?HEENTM:?Dentures?denies, denies.?Dizziness?denies, denies.?Glasses/contacts?denies, denies.?Retinopathy?denies, denies.?Blurred/double vision?denies, denies.?TMJ?denies, denies.?Discharge/drainage?denies, denies.?Implants?denies, denies.?Sore throat?denies, denies.?Dental implants?denies, denies.?Hard of hearing ?admits, admits.?Difficulty chewing/swallowing/speaking?denies, denies.?Nose bleeds?denies, denies.?Sore mouth?denies, denies.?Respiratory:?On Oxygen?denies, denies.?Pneumonia/pleurisy?denies, denies.?Bronchitis?denies, denies.?Emphysema?denies, denies.?Coughing?denies, denies.?Cough blood?denies, denies.?Shortness of breath?denies, denies.?Wheezing?denies, denies.?Cardiovascular:?Pacemaker?denies, denies.?MVP?denies, denies.?WPW?denies, denies.?CHF?denies, denies.?Heart attack?denies, denies.?Septal defect?denies, denies.?Rapid beat?denies, denies.?Chest pain ?denies, denies.?Atrial Fib.?denies, denies.?Murmur/Palpitations?denies, denies.?Gastrointestinal:?Hemorrhoids?denies, denies.?Stomach/Abdominal pain?denies, denies.?Dark blood stool?denies, denies.?Irritable bowel ?denies, denies.?Constipation?denies, denies.?Diarrhea?denies, denies.?Hematology:?Swelling?denies, denies.?Clots?denies, denies.?Varicose Veins?denies, denies.?Bruising?denies, denies.?Bleeding problem?denies, denies.?Genitourinary:?Blood urine?denies, denies.?Frequent/Painfu/urination/bladder control?denies, denies.?Kidney stones?denies, denies.?Infection (UTI)?denies, denies.?Nephropathy?denies, denies.?sex trans dis (STD)?denies, denies.?Prostate?denies, denies.?Musculoskeletal:?Hammertoes?denies, denies.?Bunions?denies, denies.?Back Pain?denies, denies.?Muscle Cramps/ Resting?denies, denies.?Muscle cramps / walking?denies, denies.?Generalized aches and pains?denies, denies.?Weakness?denies, denies.?Integ.:?Phipps?denies, denies.?Scars?denies, denies.?Corns/calluses?denies, denies.?Ingrown nails?denies, denies.?Painful nails?denies, denies.?Open Sores?denies, denies.?Rashes?denies, denies.?Neurologic:?Difficulty sleeping?denies, denies.?Brain disorder?denies, denies.?Numbness?denies, denies.?Balance trouble?denies, denies.?Confusion?denies, denies.?Fainting/blackouts?denies, denies.?Tingling?denies, denies.?Tremors?denies, denies.? * Medical History:? * Surgical History:?rotator cu [...] swimming. ?Marital status: . 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 * Medications:?TakingNight Spl int AFO - L1930 [...] reviewed and reconciled with the patient * Allergies:?N.K.D.A.yes[Teressa lee Verified] Objective: * Vitals:?Ht: 6 ft, Wt:220, [...] to distal, B/L.?HAIR GROWTH/TEXTURE/ELASTICITY/TURGOR:?normal, B/L.?PIGMENTATION:?normal, B/L.?EDEMA:?no edema.?TELANGECTASIA:?absent.?VARICOSITIES:?absent.?Dermatologic: ?VERRUCA:? Reveals a Single , multi-loculated , mosaic-patterned, round, raised, flat-topped, petechial bleeding papule(s), with cauliflower appearance and interruption of skin lines, pain to lateral compression, and size estimated at __3__ mm diameter, plantar Forefoot, LEFT 5th mtpj.?Orthopedic: [...] pin-point bleeding margins with sterile surgical blade (05564), silver nitrate chemocautery applied, recomm. Wartstick 40 percent Salicylic acid application under occlusion as directed.? * Procedure Codes:?82635 Wart Destruction, 1-14, Modifiers: XS * Follow Up:?4 Weeks, 6 Weeks * Images: * Sign off status: Completed true * Provider:?Rashawn Domingo DPM Date:? 024 Generated for Brenda ibarra/Paolo/eTransmitting on:?11/03/2024 05:24 PM EST History and Physical Notes * [...] to lateral compression, and size estimated at __3__ mm diameter, plantar Forefoot, LEFT 5th mtpj [...]
== END 2024-11-03 15:22 | disposition home or self-care (01) ==
PROVIDERS: Visit Provider Internal Medicine Cardiovascular Disease
DX: I20.89 Other forms of angina pectoris (principal); Z95.1 Presence of aortocoronary bypass graft
CPT/HCPCS: 93010; 99214

== ENCOUNTER → 2024-11-03 14:36 | Outpatient (BNVA) | payer MEDICARE, SELFPAY | PROVIDERS: Visit Provider Internal Medicine Cardiovascular Disease | DX: I20.89 Other forms of angina pectoris (principal); R94.31 Abnormal electrocardiogram [ECG] [EKG]; I45.10 Unspecified right bundle-branch block; Z95.1 Presence of aortocoronary bypass graft | CPT/HCPCS: 93005; 99212 ==

== ENCOUNTER 2024-12-24 10:00 | Outpatient (RCR) | payer MEDICARE, SELFPAY | END 2024-12-25 09:49 | disposition home or self-care (01) | LOC: HO.CR 10:00 | PROVIDERS: PCP Internal Medicine; Visit Provider Physician Assistant Surgical | DX: Z95.1 Presence of aortocoronary bypass graft (principal) | CPT/HCPCS: 93798 ==

== ENCOUNTER 2025-07-01 12:36 | Outpatient (AMB) | payer MEDICARE, SELFPAY ==
--- OUTSIDE RECORDS SUMMARY | 2024-02-14 04:00 | XMS_ITS ---
Author Organization [facility] Address [address] [facility] [place] [address] Care Team Providers Care Cant Hooker Name Role Phone Heladio Serra MD Primary Care Provider Shawanda Vidal Unavailable [phone] Rashawn Gaytan Unavailable [phone] REASON FOR VISIT Lat Visit PCP 08/24/23, Foot pain, Wart(s) Encounters Encounter Location Date Provider Diagnosis [facility] [address] [place] [address] 02/14/2024 Rashawn Gaytan Other viral warts B07.8 ; Pain in left foot M79.672 ; Other hammer toe(s) (acquired), left foot M20.42 ; Other hammer toe(s) (acquired), right foot M20.41 ; Tailor's bunionette, 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 ; Eccrine poroma of foot, 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 and Localized edema R60.0 Assessments Encounter Date Diagnosis (ICD Code) Assessment Notes Treatment Notes Treatment Clinical Notes Section Notes 02/14/2024 Other viral warts (ICD-10 - B07.8) 02/14/2024 Pain in left foot (ICD-10 - M79.672) 02/14/2024 Other hammer toe(s) (acquired), left foot (ICD-10 - M20.42) 02/14/2024 Other hammer toe(s) (acquired), right foot (ICD-10 - M20.41) 02/14/2024 Tailor's bunionette, 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 - M21.622) 02/14/2024 Eccrine poroma of foot, 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 Wartstick 40 percent Salicylic acid application under occlusion as directed Progress Notes * Emory VEGA KDOB:1955 (70 yo M)Acc No.[id number]:02/14/2024 Progress Notes Patient: Emory EVERETT Provider: Roland Domingo DPM :1955 A ge:68 Y S ex:Male Date:02/14/2024 Address: [address] [facility], [id number] Pcp:Heladio Serra MD Subjective: * Chief Complaints: * 1 . Lat Visit PCP 08/24/23. 2. Foot pain. 3. Wart(s). * HPI: F oot Pain: Nature: s harp, swelling, tenderness. Location O utside, Forefoot, Left . Duration: s everal months. Onset/Cause: p oor fitting shoes. Aggrevated: a ny pressure, standing, walking, shoes. Treatments: t x with PCP. Quality/Severity m oderate; per neur due to agent orange.? W art: Pt States Last PCP Visit: D ate: 0 09/05/2022 * ROS: G eneral/Constitutional: Nausea d enies. V omiting d enies. H karina Thirst d enies. L oss appetite d enies. C hills d enies. F atigue d enies.?Fever d enies. N ight Sweats d enies. U nexplained weight loss d enies. U nexplained weight gain d enies. H EENTM: Dentures d enies. D izziness d enies. G lasses/contacts d enies. R etinopathy d enies. B lurred/double vision d enies. T MJ?denies. D ischarge/drainage d enies. I mplants d enies. S ore throat d enies. D ental implants d enies. H krystin of hearing a dmits. D ifficulty chewing/swallowing/speaking d enies. N ose bleeds d enies. S ore mouth d enies. ? R espiratory: On Oxygen d enies. P neumonia/pleurisy d enies.?Bronchitis d enies. E mphysema d enies. C oughing d enies. C ough blood?denies. S hortness of breath d enies. W heezing d enies. C ardiovascular: Pacemaker d enies. M SAP PROJECT MANAGER d enies. W PW d enies. C HF d enies. H eart attack d enies. S eptal defect d enies. R apid beat d enies. C hest pain d enies. A trial Fib. d enies. M urmur/Palpitations d enies. G astrointestinal: Hemorrhoids d enies. S tomach/Abdominal pain d enies. D ark blood stool d enies. I rritable bowel d enies. C onstipation d enies. D iarrhea d enies. H ematology: Swelling d enies. C lots d enies. V aricose Veins d enies. B ruising d enies. B leeding problem d enies. G enitourinary: Blood urine d enies. F requent/Painfu/urination/bladder control d enies. K idney stones d enies. I nfection (UTI) d enies. N ephropathy d enies. s ex trans dis (STD) d enies. P rostate d enies. M usculoskeletal: Hammertoes d enies. B unions d enies. B ack Pain d enies. M uscle Cramps/ Resting d enies. M uscle cramps / walking d enies.?Generalized aches and pains d enies. W eakness d enies. I nteg.: Phipps d enies. S cars d enies. C orns/calluses?denies. I ngrown nails d enies. P ainful nails d enies. O pen Sores d enies. R ashes d enies. N eurologic: Difficulty sleeping d enies. B rain disorder d enies. N umbness d enies. B alance trouble d enies. C onfusion d enies. F ainting/blackouts d enies. T ingling d enies. T remors d enies. * Medical History: Objective: * Vitals: * Examination: G eneral Examination: GENERAL APPEARANCE: p leasant, alert, well nourished, well developed, well hydrated, with good attention to hygene/body habitus, and in no acute distress. ORIENTED: p erson,place, and time. N eurological: SENSORY: N eurological exam is normal, pain sensation normal, vibration sensation intact, pinprick sensation is normal in the lower extremities, denies, tingling, burning, anesthesia, paresthesia, hyperesthesia, B/L. TINEL'S COMPRESSION: N egative tarsal tunnel, malaika pedis, and medial calcaneal nerves B/L. BABINSKI REFLEX: a bsent. N euroma Pain: PALPATION: N o interspace pain noted on palpation. ? V ascular: DP PULSES (B): 2 /4, B/L. PT PULSES (B): 2 /4, B/L. CAPILLARY FILL TIME: 3 secs. per digit, B/L. TROPHIC CONDITION-TEXTURE/ELASTICITY/TURGOR/HAIR GROWTH (B):?normal, B/L. TEMPERTURE GRADIENT (C): w arm to cool, proximal to distal, B/L. PIGMENTATION: n ormal, B/L. EDEMA (C): n o edema. TELANGECTASIA: a bsent. VARICOSITIES: a bsent. D ermatologic: VERRUCA: Reveals Multiple ( __3_ ), multi-loculated , mosaic-patterned, round, raised, flat-topped, petechial bleeding papule(s), with cauliflower appearance and interruption of skin lines, with pain to lateral compression, and size estimated at __2-3__ mm diameter, LEFT 5th mtpj lateral aspect. O rthopedic: MUSCLE STRENGTH: 5 /5 all groups in a symmetrical fashion , B/L. GAIT ABNORMALITY: p ronated, abducted, B/L. TAILOR'S BUNION: Prominent, painful, inflamed 5th MTH/MPJ, LEFT. DIGITAL DEFORMITIES: Digital contracture emilia 2nd, 3rd.? Assessment: * Assessment: 1. O ther viral warts - B07.8 (Primary) 2 . P ain in left foot - M79.672? 3. O ther hammer toe(s) (acquired), left foot - M20.42 4 . O ther hammer toe(s) (acquired), right foot - M20.41 5 . T ailor's bunionette, left - M21.622 6 . 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 L ocalized edema - R60.0 Plan: * Treatment: * Procedures: W art Treatment: Procedure V errucae(s) were debrided to pin-point bleeding margins with sterile surgical blade ([id number]), silver nitrate chemocautery applied, recomm. Wartstick 40 percent Salicylic acid application under occlusion as directed. * Procedure Codes: 1 7110 Wart Destruction, 1-14, Modifiers: XS * Follow Up: 4 Weeks * Images: * The named appointment provid er may or may not be the originator of this progress note, and it is not deemed complete until electronically signed by the appointment provider. Sign off status: Pending * Provider: Roland Domingo DPM Date: 0 02/14/2024 Generated for Brenda ibarra/Paolo/Piyushitting on: 1 03:54 PM EDT History and Physical Notes * HPI (History of Present Illness) Category Sub-Category Detail Notes Category Not es Wart Pt States Last PCP Visit: Date:: 09/05/2022 Foot Pain Aggrevated: any pressure, st anding, walking, shoes Onset/Cause: poor fitting shoes Duration: several months Nature: sharp, swelling, ten derness Treatments: tx with PCP Quality/Severity moderate; per neur d ue to agent orange Location Outside, Forefoot, L eft Examination Category Sub-Category Detail Notes Category Not es Neuroma Pain PALPATION: No interspace pain noted on palpation Neurological SENSORY: Neurological exa m is normal, pain sensation normal, vibration sensation intact, pinprick sensation is normal in the lower extremities, denies, tingling, burning, anesthesia, paresthesia, hyperesthesia, B/L BABINSKI REFLEX: absent TINEL'S COMPRESSION: Negative tarsal love ann, malaika pedis, and medial calcaneal nerves B/L Dermatologic VERRUCA: Reveals Multiple ( __3_ ), multi-loculated , mosaic-patterned, round, raised, flat-topped, petechial bleeding papule(s), with cauliflower appearance and interruption of skin lines, with pain to lateral compression, and size estimated at __2-3__ mm diameter, LEFT 5th mtpj lateral aspect Orthopedic GAIT ABNORMALITY: pronated, abducted, B/L DIGITAL DEFORMITIES: Digital contracture emilia 2nd, 3rd TAILOR'S BUNION: Prominent, painful, inflamed 5th MTH/MPJ, LEFT MUSCLE STRENGTH: 5/5 all groups in a symmetrical fashion , B/L General Examination GENERAL APPEARANCE: pleasant , alert, well nourished, well developed, well hydrated, with good attention to hygene/body habitus, and in no acute distress ORIENTED: person,place, and ti me Vascular DP PULSES (B): 2/4, B/L PT PULSES (B): 2/4, B/L CAPILLARY FILL TIME: 3 secs. per digit, B/L TEMPERTURE GRADIENT (C): warm to cool, p roximal to distal, B/L TROPHIC CONDITION-TEXTURE/ELASTICITY/TURGOR/HAIR GROWTH (B): normal, B/L EDEMA (C): no edema TELANGECTASIA: absent VARICOSITIES: absent PIGMENTATION: normal, B/L
--- OUTSIDE RECORDS SUMMARY | 2024-10-27 05:00 | XMS_ITS ---
Author Organization [facility] Address [address] [place] [address] Care Team Providers Care Installment Dealer Name Role Phone Heladio Serra MD Primary Care Provider Shawanda Vidal Unavailable [phone] Nannette Perez [phone] Encounters Encounter Location Date Provider Diagnosis [facility] [address] [place] [address] 10/27/2024 Nannette Perez Plan Of Treatment No Information Progress Notes * Emory VEGA KDOB:1955 (70 yo M)Acc No.[id number]:10/27/2024 Progress Note Patient: Emory EVERETT Provider: Charlene Perez DPM :1955 A ge:69 Y S ex:Male Date:10/27/2024 Address:[address] [id number] Pcp:Heladio Serra MD Subjective: * Chief Complaints: * * Medical History: Objective: * Vitals: Assessment: Plan: * Treatment: * Images: * The named appointment provid er may or may not be the originator of this progress note, and it is not deemed complete until electronically signed by the appointment provider. Sign off status: Pending * Provider: Charlene Perez DPM Date: 0 10/27/2024 Generated for Printi ng/Paolo/Piyushitting on: 1 03:54 PM EDT
--- NOTE | 2025-07-01 12:43 | MHC.OFFVIS ---
Vital Signs 07/01/25 12:46 Height 5 ft 11 in Weight 230 lb 9.656 oz BMI 32.2 BP 130/80 Blood Pressure Location Lt brachial Position Sitting Pulse 80 Pulse Source Pulse Oximeter Intake Visit Reasons: r/s 4 mth Intake Note: r/s 4 mth f/up Gold Leaf Layer Required: No Accompanied by: Self / Same As Patient Allergies No Known Allergies (No Known Allergies*) Allergy (Verified 08/28/24 01:31) Medication List - Last Reconciled 07/01/25 by Lang Ryder MD acetaminophen 1,000 mg PO Q8H PRN ascorbic acid (vitamin C) 500 mg PO DAILY aspirin 81 mg PO DAILY atorvastatin 80 mg PO QPM clopidogrel 75 mg PO DAILY cyanocobalamin (vitamin B-12) 1,000 mcg PO DAILY esomeprazole magnesium 40 mg PO DAILY ferrous sulfate (FeroSul) 325 mg PO DAILY metoprolol tartrate 25 mg See Protocol PO BID tadalafil 20 mg PO DAILY PRN Held on 08/28/24. Instructions: Resume on 09/04/24. HPI Comments Details: Pleasant 70 year gentleman who is here for follow-up. He was seen in the hospital when he presented with chest pain and NSTEMI. He had indigestion like chest discomfort and vomiting and ruled in for NSTEMI. He was taken urgently for cardiac catheterization which showed left main stenosis involving the bifurcation. He underwent CABG x4 and since then has been doing well. He is denying any chest discomfort. No shortness of breath. He is doing cardiac rehabilitation and is progressing there. He currently does not know his medications correctly. By discharge summary from [facility] he is supposed to be on Plavix and atorvastatin. he is status saying that he is taking pravastatin. I have advised him to call us and update the medication list as he goes home. 07/01/2025: He is here for follow-up. He has been doing well and has not had any further indigestion like feeling. This was his presentation for ACS. He does get some shortness of breath with exercise but he has not been exercising regularly. He is saying that he is progressing with exercise slowly. He wants to do hammertoe surgery and is asking whether he can stop his Plavix. [facility] Medical History GERD (gastroesophageal reflux disease) Hyperlipidemia Hypertension Surgical History Hx of cardiac cath Social History Household Members: Spouse Housing: House Do you presently have visiting nurse or other home services: No Alcohol intake: current Alcohol intake frequency: a few times a week Patient Tobacco Use Status: Former Tobacco user Review of Systems Const Denies chills, Denies fatigue, Denies fever(s), Denies frequent falls, Denies weakness, Denies weight gain and Denies weight loss ENT Denies dizziness Card Denies chest pain, Denies leg edema, Denies lightheadedness, Denies palpitations, Denies dyspnea and Denies dyspnea on exertion Resp Denies cough, Denies dyspnea and Denies dyspnea on exertion GI Denies hematochezia Musc Denies abnormal gait, Denies muscle weakness, Denies numbness, Denies radiating pain into limb and Denies tingling Neuro Denies abnormal gait, Denies dizziness, Denies frequent falls, Denies numbness, Denies tingling and Denies weakness Endo Denies fatigue and Denies palpitations Physical Exam Vital Signs: Last Vital Signs Pulse 80 07/01/25 12:46 BP 130/80 07/01/25 12:46 BMI result Body Mass Index 32.2 GENERAL APPEARANCE: in no acute distress, pleasant. NECK: no carotid bruit, no jugular venous distention. SKIN: Well-healed midline sternotomy scar. HEART: no murmurs, regular rate and rhythm. LUNGS: clear to auscultation bilaterally. ABDOMEN: soft, nontender. EXTREMITIES: no edema. PERIPHERAL PULSES: equal. NEUROLOGIC: No gross deficits, AAO X 3 Assessment & Plan Assessment & Plan (1) S/P CABG x 4: Code(s): Z95.1 - Presence of aortocoronary bypass graft Category: Surgical Plan 70-year-old gentleman who is here for follow-up. He was seen in the hospital when he presented with NSTEMI. He underwent urgent cardiac catheterization which showed severe left main stenosis and underwent coronary artery bypass surgery urgently while inpatient. He has done quite well since the surgery and has recovered very well. Denying any anginal symptoms currently. Blood pressure is well controlled. He has some dyspnea with exercise. I think this is related to deconditioning. He has not exercise for long time and while doing elliptical he feels short of breath. I have advised him to continue exercising regularly. He needs hammertoe surgery. He is intermediate risk for perioperative complication. Aspirin should not be stopped in the perioperative period. Plavix on the other hand can be held for 5 days before surgery and should be resumed after surgery. Thank you for allowing me to participate in the care of your patient. Please feel free to contact me if you have any questions. Coding Level of Care Code Est Pt Level 4 (39149) Diagnoses S/P CABG x 4 Z95.1
[2025-07-01 12:46] VITALS: BP 130/80; PULSE 80; BMI 32.2
--- OUTSIDE RECORDS SUMMARY | 2025-07-01 15:55 | XMS_ITS | Patient Health Record ---
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 Oral; Duration: 90 Days Active NexIUM 40 mg Active Pravastatin Sodium 80 mg Active Night Splint AFO - L1930 as directed Active Physical Therapy . . . 2-3x/week; Durat ion: 3-4 weeks Active Plavix Active Atorvastatin Calcium 40 MG Oral; Duration: 90 Days Active Tylenol Active Aspirin 81 mg Active Lisinopril 20 mg Act romi Aleve Active hydrochlorothiazide Active Immunizations Vaccine Route Administration Date Status Comme nts Pneumococcal Unknown 05/16/2019 Administered COVID-19 Moderna Vaccine Unknown 09/03/2021 Administere d 12/2020 Unsure Dates Social History Tobacco Use: Social History Observation [...] Problem Status W/U Status Risk Notes Problem Plantar wart (16682953) Plantar wart (B07.0) Active confirmed Problem Localized, primary osteoarthritis of the ankle and/or foot (796800761) Primary osteoarthritis , left ankle and foot (M19.072) Active confirmed Problem Acquired hammer toe of right foot (7498756471042725) Other hammer toe(s) (acquired), right foot (M20.41) Active confirmed Problem Acquired hammer toe of left foot (8621339546194305) Other hammer toe(s) (acquired), left foot (M20.42) Active confirmed Problem Neuropathy (086098017) Neuropathy (G62.9) Active confirmed Vital Signs Blood pressure diastolic 80 mm Hg 12/02/2024 Height 6ft in 12/02/2024 Blood pressure systolic 120 mm Hg 12/02/2024 Weight 210 lbs 12/02/2024 BMI 28.48 kg/m2 12/02/2024 Encounters Encounter Location Date Provider Diagnosis [facility] [address] [address] 12/02/2024 Shawanda Pringle Onychomycosis B35.1 ; Charcot joint of left foot, non-diabetic M14.672 ; Pain in right toe(s) M79.674 ; Pain in left toe(s) M79.675 ; Plantar wart B07.0 ; Left foot pain M79.672 and Neuropathy G62.[address] [facility] [address] 12/02/2024 Shawanda Pringle Assessments Encounter Date Diagnosis (ICD Code) Assessment Notes Treatment Notes Treatment Clinical Notes Section Notes 12/02/2024 Onychomycosis (ICD-10 - B35.1) 12/02/2024 Charcot joint of left foot, non-diabetic (ICD-10 - M14.672) 12/02/2024 Pain in right toe(s) (ICD-10 - M79.674) 12/02/2024 Pain in left toe(s) (ICD-10 - M79.675) 12/02/2024 Plantar wart (ICD-10 - B07.0) 12/02/2024 Left foot pain (ICD-10 - M79.672) 12/02/2024 Neuropathy (ICD-10 - G62.9) Plan Of Treatment Pending Test Test Name Order Date X ray : Foot, left 2V 05/02/2013 X ray : Foot, right 2V 05/02/2013 X ray : Foot, left 3V 05/03/2022 X ray : Foot, left 3V 11/06/2023 X ray : Foot, left 3V 12/02/2024 X ray : Foot, right 3V 05/03/2022 Insurance Providers Payer Name Payer Address Payer Phone Subscriber Number Group Number Insured Name Patient Relationship to Insured Coverage Start Date Coverage End Date [employer] Medicare Open [address] [place] [address] [id number] Emory Vega Self - patient is the insured Medical (General) History Medical History History ICD Code Arthritis chicken pox hypercholesterolemia hypertension joint implants/screws measles mumps reflux Heart attack Surgical History Surgery Date(Month/Year) rotator cuff tear repair 08/22/2000 hip replacement rt and left 02/29/04-2014 hernia 06/22/12 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
== END 2025-07-01 13:12 | disposition home or self-care (01) ==
LOC: HO.HCS 12:37
PROVIDERS: Visit Provider Internal Medicine Cardiovascular Disease
DX: Z95.1 Presence of aortocoronary bypass graft (principal)
CPT/HCPCS: 99214

== ENCOUNTER → 2025-07-01 12:36 | Outpatient (BNVA) | payer MEDICARE, SELFPAY | PROVIDERS: Visit Provider Internal Medicine Cardiovascular Disease | DX: I25.2 Old myocardial infarction (principal); Z95.1 Presence of aortocoronary bypass graft | CPT/HCPCS: 99212 ==